=== PATIENT | female | born 1970 | race Caucasian/White ===

== ENCOUNTER 2019-11-25 09:42 | Outpatient (REF) | payer OTHER, SELFPAY ==
[2019-11-25 12:38] LABS: Alanine Aminotransferase 22 U/L (0-31); Albumin Level 4.2 g/dL (3.5-5.0); Alkaline Phosphatase 117 U/L (39-117); Anion Gap 11 (12-20); Aspartate Amino Transferase 19 U/L (5-31); Bilirubin Total 0.5 mg/dL (0.0-1.0); Blood Urea Nitrogen 12 mg/dL (9-16); Calcium 9.2 mg/dL (8.4-10.2); Carbon Dioxide 30 mmol/L (22-29); Chloride 104 mmol/L (96-108); Cholesterol 175 mg/dL; Estimated Glomerular Filt Rate > 60; Glucose Fasting 90 mg/dL (60-99); HDL Cholesterol 43 mg/dL; LDL Cholesterol Calculated 107 mg/dl; Potassium 4.3 mmol/l (3.3-5.1); Sodium 141 mmol/L (135-145); Total Protein 7.1 g/dL (6.5-8.0); Triglycerides 127 mg/dL
== END 2019-11-25 09:43 | disposition home or self-care (01) ==
LOC: CF 09:42
PROVIDERS: PCP Internal Medicine; Referring Provider Internal Medicine; Visit Provider Nurse Practitioner
DX: D12.6 Benign neoplasm of colon, unspecified (principal); K59.00 Constipation, unspecified; Z83.3 Family history of diabetes mellitus
CPT/HCPCS: 80053; 80061; 99213; Q3014

== ENCOUNTER 2020-01-07 16:00 | Outpatient (REF) | payer OTHER, SELFPAY ==
--- NOTE | 2020-01-07 16:05 | MM_ITS ---
EXAMINATION: MM SCREENING DIGITAL BREAST TOMOSYNTHESIS, BILATERAL CLINICAL INFORMATION: Screening. Asymptomatic. The lifetime risk of breast cancer based on the Tyrer-Cuzick Model is 10%. COMPARISON: Mammography: 08/08/2018, 07/05/2017 TECHNIQUE: Digital breast tomosynthesis is performed in both the craniocaudal and mediolateral oblique views along with computer-aided detection (CAD). Synthesized 2D images are generated from the tomosynthesis. FINDINGS: There are scattered areas of fibroglandular density (ACR BI-RADS breast composition Category b). There are no significant masses, abnormal calcifications, or other abnormalities. No developing density. No significant changes. MM/MM tomosynthesis screening BI IMPRESSION: No mammographic evidence of malignancy. ASSESSMENT: BI-RADS 1: Negative RECOMMENDATION: Routine annual mammography screening. This patient's information was entered into a reminder system with a target due date for their next mammogram.
== END 2020-01-07 16:01 | disposition home or self-care (01) ==
LOC: HO.MAMMO 16:00
PROVIDERS: PCP Internal Medicine; Visit Provider Internal Medicine
DX: Z12.31 Encounter for screening mammogram for malignant neoplasm of breast (principal)
CPT/HCPCS: 77063; 77067

== ENCOUNTER 2020-03-25 16:26 | Outpatient (REF) | payer OTHER, SELFPAY | END 2020-03-25 16:27 | disposition home or self-care (01) | LOC: HO.LAB 16:26 | PROVIDERS: Visit Provider Internal Medicine | DX: Z20.822 Contact with and (suspected) exposure to COVID-19 (principal) | CPT/HCPCS: 36415; C9803; U0003; U0005 ==

== ENCOUNTER 2020-04-28 14:21 | Outpatient (REF) | payer OTHER, SELFPAY ==
[2020-05-02 12:07] LABS: HPV mRNA E6/E7 rflx Not Detected (Not Detected)
== END 2020-04-28 14:22 | disposition home or self-care (01) ==
LOC: HO.LAB 14:21
PROVIDERS: PCP Internal Medicine; Visit Provider Obstetrics & Gynecology
DX: Z01.419 Encounter for gynecological examination (general) (routine) without abnormal findings (principal); Z11.51 Encounter for screening for human papillomavirus (HPV)
CPT/HCPCS: 36415; 87624; 88142

== ENCOUNTER 2020-08-04 08:07 | Outpatient (REF) | payer OTHER, SELFPAY | END 2020-08-04 08:08 | disposition home or self-care (01) | LOC: HO.LAB 08:07 | PROVIDERS: PCP Internal Medicine; Visit Provider Internal Medicine | DX: Z20.822 Contact with and (suspected) exposure to COVID-19 (principal) | CPT/HCPCS: C9803; U0003; U0005 ==

== ENCOUNTER 2020-09-12 13:55 | Emergency (ER) | payer OTHER, SELFPAY ==
[2020-09-12 14:38] VITALS: BP 118/77; PULSE 87; RESP 20; TEMP 36.1; O2SAT 99; BMI 29.2
[2020-09-12 15:05] LABS: Glucose Urine UA NEG (NEG); Leukocyte Esterase Urine TRACE (NEG); Nitrite Urine NEG (NEG); Specific Gravity - Urine <= 1.005 (1.005-1.025); UACC Culture Trigger YES; Urine Blood NEG (NEG); Urine Ketones NEG (NEG); Urine Protein NEG (NEG-TRACE)
[2020-09-12 15:08] LABS: Appearance Urine CLEAR; Color Urine YELLOW
[2020-09-12 15:18] LABS: Bacteria Urine TRACE /LPF; RBC Urine 0-2 /HPF (0); Squamous Epithelial Cell Urine TRACE /LPF; UACC CULT YES
[2020-09-12 16:07] LABS: MANUAL DIFF FLAG NO
[2020-09-12 16:08] LABS: Basophils Percent Auto 0.5 % (0-2); Eosinophils Absolute Auto 0.1 X10*3/uL (0.0-0.4); Eosinophils Percent Auto 1.1 % (0-4); Hematocrit 38.5 % (37-47); Hemoglobin 12.4 g/dl (12.0-16.0); Imm Gran Abs Auto 0.02 X10*3/uL (0.00-0.03); Imm Gran Pct Auto 0.2 % (0.0-0.4); Lymphocytes Absolute Auto 2.9 X10*3/uL (1.2-4.9); Mean Corpuscular HGB Conc 32.2 g/dl (31.0-35.0); Mean Corpuscular Hemoglobin 29.3 pg (27.0-33.0); Mean Platelet Volume 11.7 fL (9.4-12.3); Monocytes Absolute Auto 0.6 X10*3/uL (0.1-1.2); Monocytes Percent Auto 6.5 % (2-11); Neutrophils Absolute Auto 4.9 X10*3/uL (2.0-8.3); Neutrophils Percent Auto 57.7 % (45-73); Platelet Count 257 X10*3/uL (160-400); Red Blood Count 4.23 X10*6/uL (4.20-5.50); Red Cell Distribution Width 13.1 % (11.0-16.0); White Blood Count 8.4 X10*3/uL (4.8-10.8)
[2020-09-12 16:36] LABS: Anion Gap 12 (12-20); Blood Urea Nitrogen 12 mg/dL (9-16); Calcium 9.8 mg/dL (8.4-10.2); Carbon Dioxide 29 mmol/L (22-29); Chloride 106 mmol/L (96-108); Creatinine Clr Calc Pharmacy 75.7; Estimated Glomerular Filt Rate > 60; Glucose Random 97 mg/dL (60-115); Potassium 4.8 mmol/L (3.3-5.1); Sodium 142 mmol/L (135-145)
--- NOTE | 2020-09-12 17:21 | ED_ITS ---
HPI - Abdominal Pain General Chief Complaint: Abdominal Pain Stated Complaint: ABD PAIN Time Seen by Provider: 09/12/20 17:08 Source: patient Mode of arrival: ambulatory Limitations: no limitations History of Present Illness HPI narrative: 50-year-old female came in for evaluation of abdominal pain. Left-sided abdominal pain started about 4 weeks ago, seen and evaluated by her PCP prescribed omeprazole, patient describes the pain as constant but waxing and wean, pain is moderate 4/10, described as crampy pain, patient has a normal bowel movement sometimes get loose stool, but no blood in the stool, no nausea, no vomiting, no fever. No relieving factor, no aggravating factors. Patient had recent colonoscopy and her next colonoscopy in 5 years patient normally follow with gastroenterology office has an appointment next month. Related Data Previous Rx's Medication Instructions Recorded pantoprazole 40 mg tablet,delayed 40 mg PO DAILY 90 Days #90 tab 09/06/20 release Allergies Allergy/AdvReac Type Severity Reaction Status Date / Time No Known Allergies Allergy Verified 08/04/20 07:49 Review of Systems Review of Systems All other systems are reviewed and are negative Constitutional: Reports as per HPI and Reports no additional constitutional complaints Eyes: Reports as per HPI and Reports no additional eye complaints Reports system reviewed and no additional complaints, except as documented Cardiovascular: Reports as per HPI and Reports no additional cardiovascular complaints Respiratory: Reports as per HPI and Reports no additional respiratory complaints Gastrointestinal: Reports as per HPI and Reports no additional gastrointestinal complaints Genitourinary: Reports no additional female genitourinary complaints Musculoskeletal: Reports no additional musculoskeletal complaints Skin/Breast: Reports system reviewed and no additional complaints, except as docu Psychiatric: Reports no additional psychiatric complaints Endocrine: Reports no additional endocrine complaints Hematologic/Lymphatic: Reports no additional hematologic/lymphatic complaints Allergic/Immunologic: Reports no additional allergic/immunologic complaints Reports system reviewed and no additional complaints, except as documented and Reports Abnormal speech present Physical Exam Vital Signs: Vital Signs: Last Vital Signs Temp 96.9 F 09/12/20 14:38 Pulse 87 09/12/20 14:38 Resp 20 09/12/20 14:38 BP 118/77 09/12/20 14:38 Pulse Ox 99 09/12/20 14:38 Body Mass Index 29.2 Vital signs have been reviewed as appeared to be correct. Blood pressure normal. Heart rate normal. Respiration rate normal. Temperature normal. Oxygen saturation normal. Appearance: Alert. Oriented X3. No acute distress. Head: Normal external exam. Normocephalic. Atraumatic. No Hernandez signs noted. No raccoon eyes noted Eyes: PERRLA. EOMI. Conjunctiva and sclera normal. Eyelids normal. ENT: TM's Normal. Pharynx normal. Uvula midline. Moist mucous membranes. No trismus noted. No drooling noted. No muffled voice noted. Neck: Normal inspection. Neck supple. FROM. No adenopathy. Thyroid Normal. No meningeal signs. No neck mass noted. CVS: Normal heart rate and rhythm. Heart sound normal. No murmurs noted. Pulses normal throughout. Respiratory: No respiratory distress. Painless inspiration. Breath sounds normal. No wheezes/rales/rhonchi noted. Chest nontender. No accessory muscle usage noted or decreased air movement noted. Abdomen: Soft and nontender. Bowel sounds normal in all 4 quadrants. No distention noted. No organomegaly noted. No visible injury noted. Back: No CVA tenderness. Full range of motion noted. Skin: Skin warm and dry. Normal skin color. Normal skin turgor. No rashes/lesions/lacerations noted. Extremities: No lower extremity edema. Extremities exhibit normal range of motion. Extremities nontender. Neuro: Oriented X 3. No motor deficit. No sensory deficit. Reflexes normal. Course Course Course Narrative: Assessment and plan. 50-year-old female came in with left-sided abdominal pain for 3-4 weeks, patient had recent colonoscopy which was on significant except for tubular adenoma that has been followed by the administrative technician patient is scheduled to have her next colonoscopy in 5 years. Patient was evaluated by PCP for her chronic abdominal pain was prescribed omeprazole with no relief. As I discussed with the patient to modify her diet more frequent small quantity, continue with omeprazole, avoid fried full greasy food. And keep to her appointment with administrative technician. No acute emergency intervention is needed at this point. MDM - Abdominal Pain Lab Data Attestation: I reviewed the patient's lab results. Result diagrams: 09/12/20 15:59 09/12/20 15:59 Labs: Lab Results 09/12/20 09/12/20 09/12/20 Range/Units 14:57 15:59 15:59 WBC 8.4 (4.8-10.8) X10*3/uL RBC 4.23 (4.20-5.50) X10*6/uL Hgb 12.4 (12.0-16.0) g/dl Hct 38.5 (37-47) % MCV 91.0 (80-98) fL MCH 29.3 (27.0-33.0) pg MCHC 32.2 (31.0-35.0) g/dl RDW 13.1 (11.0-16.0) % Plt Count 257 (160-400) X10*3/uL MPV 11.7 (9.4-12.3) fL Immature Gran % (Auto) 0.2 (0.0-0.4) % Neut % (Auto) 57.7 (45-73) % Lymph % (Auto) 34.0 (20-40) % Wolfe % (Auto) 6.5 (2-11) % Eos % (Auto) 1.1 (0-4) % Baso % (Auto) 0.5 (0-2) % Lymph # (Auto) 2.9 (1.2-4.9) X10*3/uL Wolfe # (Auto) 0.6 (0.1-1.2) X10*3/uL Eos # (Auto) 0.1 (0.0-0.4) X10*3/uL Baso # (Auto) 0.0 (0.0-0.2) X10*3/uL Abs Immat Gran (auto) 0.02 (0.00-0.03) X10*3/uL Absolute Neuts (auto) 4.9 (2.0-8.3) X10*3/uL Absolute Nucleated RBC 0.000 (0.0-0.012) X10*3/uL Nucleated RBC % (auto) 0.0 (0.0-0.2) /100WBC Sodium 142 (135-145) mmol/L Potassium 4.8 (3.3-5.1) mmol/L Chloride 106 (96-108) mmol/L Carbon Dioxide 29 (22-29) mmol/L Anion Gap 12 (12-20) BUN 12 (9-16) mg/dL Creatinine 0.81 (0.5-1.4) mg/dL Estim Creat Clear Calc 75.7 Estimated GFR > 60 Random Glucose 97 (60-115) mg/dL Calcium 9.8 D (8.4-10.2) mg/dL Urine Color YELLOW Urine Appearance CLEAR Urine pH 6.0 (5.0-8.0) Ur Specific [place] <= 1.005 (1.005-1.025) Urine Protein NEG (NEG-TRACE) MG/DL Urine Glucose (UA) NEG (NEG) MG/DL Urine Ketones NEG (NEG) MG/DL Urine Blood NEG (NEG) Urine Nitrite NEG (NEG) Ur Leukocyte Esterase TRACE H (NEG) Urine RBC 0-2 (0) /HPF Urine WBC 1-4 (0-4) /HPF Ur Squamous Epith Cells TRACE /LPF Urine Bacteria TRACE /LPF Discharge Plan Discharge Clinical Impression: Abdominal pain Qualifiers: Abdominal location: unspecified location Qualified Code(s): R10.9 - Unspecified abdominal pain Patient Disposition: Home, Self-Care Instructions: Abdominal Pain (ED) Prescriptions: No Action pantoprazole 40 mg tablet,delayed release (DR/EC) 40 mg PO DAILY 90 Days Qty: 90 RF: 1 Referrals: Pio Kelley MD [Physician] - 2 days Amber Jensen MD [Primary Care Provider] - 2 days PMF Past Medical History Medical History 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 GERD (gastroesophageal reflux disease) Right sided sciatica Uterine leiomyoma Surgical History History of delivery Hx of colonoscopy Family History Family History Father COPD (chronic obstructive pulmonary disease) Mother NIDDY (non-insulin dependent diabetes mellitus in young) Paternal Grandmother Alzheimer's dementia Maternal Grandmother NIDDY (non-insulin dependent diabetes mellitus in young) Social History Social History Housing: Apartment Alcohol intake: never Patient Tobacco Use Status: Never used Tobacco e-Cigarette/Vaping Use: Never Used Second Hand Smoke Exposure: No Use of substances other than those prescribed or required for medical reasons: No Advance Directives: No Advance Directives Information Provided: No Advance Directives Date on File: 11/25/19 Patient : No service: No Current occupational status: employed Current occupational exposures/hazards: No
[2020-09-12 17:24] LABS: Alanine Aminotransferase 15 U/L (0-31); Albumin Level 4.4 g/dL (3.5-5.0); Alkaline Phosphatase 121 U/L (39-117); Aspartate Amino Transferase 17 U/L (5-31); Bilirubin Direct < 0.2 mg/dL (0.0-0.5); Lipase 40 U/L (8-78); Total Protein 7.5 g/dL (6.5-8.0)
[2020-09-12 17:32] LABS: Bilirubin Total < 0.2 mg/dL (0.0-1.0)
== END 2020-09-12 17:46 | disposition home or self-care (01) ==
PROVIDERS: Emergency Provider Emergency Medicine; PCP Internal Medicine
DX: R10.9 Unspecified abdominal pain (principal); K21.9 Gastro-esophageal reflux disease without esophagitis
CPT/HCPCS: 36415; 80048; 80076; 81001; 83690; 85025; 87086; 99283; 99284

== ENCOUNTER → 2020-10-29 10:23 | Outpatient (BNVA) | payer OTHER, SELFPAY | PROVIDERS: PCP Internal Medicine; Referring Provider Internal Medicine; Visit Provider Nurse Practitioner | DX: K59.00 Constipation, unspecified (principal); K21.9 Gastro-esophageal reflux disease without esophagitis; R19.7 Diarrhea, unspecified; R10.10 Upper abdominal pain, unspecified; Z83.1 Family history of other infectious and parasitic diseases | CPT/HCPCS: 99212 ==

== ENCOUNTER 2020-11-18 08:05 | Outpatient (REF) | payer OTHER, SELFPAY ==
[2020-11-18 10:00] LABS: HBS Num1 0.27 mIU/mL (0-7.99); HBc Num1 0.04 S/CO (0.00-0.79); Hepatitis B Core Antibody Nonreactive (Nonreactive); ~HepC Num1 0.41 S/CO (0.00-0.79); ~Hepatitis B Surface Antibody NONREACTIVE (Nonreactive); ~Hepatitis C Antibody Nonreactive (Nonreactive)
[2020-11-18 10:28] LABS: HBsAGNum1 0.19 S/CO (0.00-0.99); Hepatitis B Surface Antigen Negative (Negative)
[2020-11-19 08:08] LABS: Hepatitis A Antibody IgM 0.23 Index (0-0.79); ~Hepatitis A Antibody IgM Nonreactive (Nonreactive)
== END 2020-11-18 08:06 | disposition home or self-care (01) ==
LOC: HO.LAB 08:05
PROVIDERS: PCP Internal Medicine; Visit Provider Nurse Practitioner
DX: R19.7 Diarrhea, unspecified (principal); R10.10 Upper abdominal pain, unspecified; Z83.1 Family history of other infectious and parasitic diseases
CPT/HCPCS: 36415; 86140; 86704; 86706; 86709; 86803; 87045; 87046; 87077; 87338; 87340

== ENCOUNTER 2020-11-18 08:42 | Outpatient (REF) | payer OTHER, SELFPAY ==
--- NOTE | ~2020-11-18 | US_ITS ---
EXAMINATION: US ABDOMEN COMPLETE CLINICAL INFORMATION: Diarrhea, unspecified. COMPARISON: None TECHNIQUE: Real-time imaging of the abdominal viscera. FINDINGS: PANCREAS: Normal. ABDOMINAL AORTA: The proximal, mid, and distal segments are normal in caliber. INFERIOR VENA CAVA: Visualized portions are normal. LIVER: The liver is normal in size. The liver contour is normal. Liver echotexture is normal. No focal hepatic lesion. There is no intrahepatic biliary duct dilatation seen. GALLBLADDER: Normal. The gallbladder is physiologically distended without evidence of stones, sludge, polyps, wall thickening or pericholecystic fluid. COMMON BILE DUCT: Normal in caliber measuring 0.4 cm in diameter. RIGHT KIDNEY: There is a 9 x 8 x 8 mm simple cyst in the midpole. No imaging follow-up needed. No hydronephrosis or renal calculi. The kidney measures 9.5 cm in maximum dimension. LEFT KIDNEY: Normal. No hydronephrosis. No renal calculi or focal parenchymal lesions. The kidney measures 10.1 cm in maximum dimension. SPLEEN: Normal. The spleen measures 7.3 cm in maximum dimension. FREE FLUID: None. US/US abdomen complete IMPRESSION: Small right renal cyst. Otherwise unremarkable exam.
== END 2020-11-18 08:43 | disposition home or self-care (01) ==
LOC: HO.US 08:42
PROVIDERS: PCP Internal Medicine; Visit Provider Nurse Practitioner
DX: R19.7 Diarrhea, unspecified (principal)
CPT/HCPCS: 76700

== ENCOUNTER → 2020-11-30 09:50 | Outpatient (BNVA) | payer OTHER, SELFPAY | PROVIDERS: PCP Internal Medicine; Referring Provider Internal Medicine; Visit Provider Nurse Practitioner | DX: D12.6 Benign neoplasm of colon, unspecified (principal); R10.9 Unspecified abdominal pain | CPT/HCPCS: 99212 ==

== ENCOUNTER → 2020-12-23 16:33 | Outpatient (BNVA) | payer OTHER, SELFPAY | PROVIDERS: PCP Internal Medicine; Visit Provider Nurse Practitioner ==

== ENCOUNTER 2020-12-31 14:06 | Outpatient (REF) | payer OTHER, SELFPAY | END 2020-12-31 14:07 | disposition home or self-care (01) | LOC: HO.LAB 14:06 | PROVIDERS: PCP Internal Medicine; Visit Provider Nurse Practitioner | DX: R10.9 Unspecified abdominal pain (principal) | CPT/HCPCS: 36415; 86003 ==

== ENCOUNTER → 2021-01-20 16:11 | Outpatient (BNVA) | payer OTHER, SELFPAY | PROVIDERS: PCP Internal Medicine; Referring Provider Internal Medicine; Visit Provider Nurse Practitioner ==

== ENCOUNTER 2021-01-25 11:04 | Outpatient (REF) | payer OTHER, SELFPAY ==
--- NOTE | ~2021-01-25 | MM_ITS ---
EXAMINATION: MM SCREENING DIGITAL BREAST TOMOSYNTHESIS, BILATERAL CLINICAL INFORMATION: Screening. Asymptomatic. The lifetime risk of breast cancer based on the Tyrer-Cuzick Model is 11.3%. COMPARISON: Mammography: January 07, 2020 and studies dating back to July 02, 2013 TECHNIQUE: Digital breast tomosynthesis is performed in both the craniocaudal and mediolateral oblique views along with computer-aided detection (CAD). Synthesized 2D images are generated from the tomosynthesis. FINDINGS: The breasts are heterogeneously dense, which may obscure small masses (ACR BI-RADS breast composition Category c). There are no significant masses, abnormal calcifications, or other abnormalities. MM/MM tomosynthesis screening BI IMPRESSION: There are no significant changes from prior study. ASSESSMENT: BI-RADS 1: Negative RECOMMENDATION: Routine annual mammography screening. This patient's information was entered into a reminder system with a target due date for their next mammogram.
== END 2021-01-25 11:05 | disposition home or self-care (01) ==
LOC: HO.MAMMO 11:04
PROVIDERS: Visit Provider Internal Medicine
DX: Z12.31 Encounter for screening mammogram for malignant neoplasm of breast (principal)
CPT/HCPCS: 77063; 77067

== ENCOUNTER → 2021-05-02 11:19 | Outpatient (REF) | payer OTHER, SELFPAY ==
--- NOTE | 2021-05-02 11:26 | ECG_ITS ---
Test Reason : R07.89 CHEST PAIN Blood Pressure : / mmHG Vent. Rate : 068 BPM Atrial Rate : 068 BPM P-R Int : 158 ms QRS Dur : 076 ms QT Int : 380 ms P-R-T Axes : 053 017 010 degrees QTc Int : 404 ms Normal sinus rhythm Normal EKG When compared with ECG of 21-JUL-2018 20:52, No significant change was found Referred By: Karina Basilio Electronically Signed By:MARTHA DAVIS
== END ==
LOC: HO.CARD 11:19
PROVIDERS: PCP Internal Medicine; Visit Provider Nurse Practitioner Family
DX: R07.89 Other chest pain (principal)
CPT/HCPCS: 93005

== ENCOUNTER → 2021-05-04 13:34 | Outpatient (BNVA) | payer OTHER, SELFPAY | PROVIDERS: PCP Internal Medicine; Visit Provider Obstetrics & Gynecology | DX: Z13.89 Encounter for screening for other disorder (principal) ==

== ENCOUNTER → 2021-05-26 12:45 | Outpatient (BNVA) | payer OTHER, SELFPAY | PROVIDERS: PCP Internal Medicine; Referring Provider Internal Medicine; Visit Provider Nurse Practitioner | DX: K58.0 Irritable bowel syndrome with diarrhea (principal); R10.12 Left upper quadrant pain; K64.9 Unspecified hemorrhoids | CPT/HCPCS: 99212 ==

== ENCOUNTER 2021-07-14 11:26 | Emergency (ER) | payer OTHER, SELFPAY ==
--- NOTE | ~2021-07-14 | XR_ITS ---
EXAMINATION: XR CHEST CLINICAL INFORMATION: Chest single view COMPARISON: None TECHNIQUE: Frontal view of the chest was obtained. FINDINGS: No significant abnormality is noted involving the heart, lungs, mediastinum, bony thorax or soft tissues. XR/XR chest 1V IMPRESSION: Unremarkable examination.
--- NOTE | 2021-07-14 11:29 | ECG_ITS ---
Test Reason : chest pain Blood Pressure : / mmHG Vent. Rate : 071 BPM Atrial Rate : 071 BPM P-R Int : 152 ms QRS Dur : 076 ms QT Int : 362 ms P-R-T Axes : 050 003 004 degrees QTc Int : 393 ms Normal sinus rhythm Normal ECG When compared with ECG of 02-MAY-2021 11:35, No significant change was found Referred By: Generic ED Physician Electronically Signed By:Cruzito Valentino
[2021-07-14 12:48] VITALS: BP 125/76; PULSE 72; RESP 18; TEMP 36.3; O2SAT 100; BMI 29.6
[2021-07-14 13:13] LABS: MANUAL DIFF FLAG NO
[2021-07-14 13:18] LABS: Basophils Percent Auto 0.3 % (0-2); Eosinophils Absolute Auto 0.1 X10*3/uL (0.0-0.4); Eosinophils Percent Auto 0.8 % (0-4); Hematocrit 37.7 % (37.0-47.0); Imm Gran Abs Auto 0.01 X10*3/uL (0.00-0.03); Imm Gran Pct Auto 0.1 % (0.0-0.4); Lymphocytes Absolute Auto 2.6 X10*3/uL (1.2-4.9); Lymphocytes Percent Auto 36.5 % (20-40); Mean Corpuscular HGB Conc 31.8 g/dl (31.0-35.0); Mean Corpuscular Volume 91.1 fL (80.0-98.0); Mean Platelet Volume 11.7 fL (9.4-12.3); Monocytes Absolute Auto 0.4 X10*3/uL (0.1-1.2); Monocytes Percent Auto 6.1 % (2-11); Neutrophils Absolute Auto 4.1 x10*3/uL (2.0-8.3); Neutrophils Percent Auto 56.2 % (45-73); Platelet Count 235 X10*3/uL (160-400); Red Blood Count 4.14 X10*6/uL (4.20-5.50); Red Cell Distribution Width 13.1 % (11.0-16.0); White Blood Count 7.2 X10*3/uL (4.8-10.8)
[2021-07-14 13:30] LABS: Alanine Aminotransferase 23 U/L (0-31); Alkaline Phosphatase 112 U/L (39-117); Anion Gap 12 (12-20); Aspartate Amino Transferase 17 U/L (5-31); Bilirubin Total 0.3 mg/dL (0.0-1.0); Blood Urea Nitrogen 11 mg/dL (9-16); Calcium 9.7 mg/dL (8.4-10.2); Carbon Dioxide 29 mmol/L (22-29); Chloride 104 mmol/L (96-108); Creatinine Clr Calc Pharmacy 88.7; Estimated Glomerular Filt Rate > 60; Glucose Random 101 mg/dL (60-115); Potassium 4.5 mmol/L (3.3-5.1); Sodium 140 mmol/L (135-145); Total Protein 7.1 g/dL (6.5-8.0)
[2021-07-14 13:30] LABS: COVID-19 Test Negative (Negative); IDNOW Serial# 16C4AD1C; Influenza A Negative (Negative); Influenza B2 Negative (Negative)
[2021-07-14 13:35] LABS: Troponin-I High Sensitivity < 3.5 ng/L (<3.5-17.0)
--- NOTE | 2021-07-14 14:11 | ED_ITS ---
HPI - Chest Pain General Chief Complaint: Chest Pain Stated Complaint: chest pain, fast heart beat Time Seen by Provider: 07/14/21 14:04 Source: patient Mode of arrival: ambulatory Limitations: no limitations History of Present Illness HPI narrative: palpitation since X 10 Days ,no chest pain no syncope MD complaint: other (palpitations) Pertinent past history: other Onset (ago): unknown Onset: during rest Pain radiation: none Quality: other Relieving factors: other Exacerbating factors: other Risk Factors Coronary artery disease risk factors: none Related Data Previous Rx's Medication Instructions Recorded ibuprofen 600 mg tablet 600 mg PO Q8H PRN #20 tab 04/29/21 tizanidine 2 mg tablet 2 mg PO BEDTIME PRN #7 tab 04/29/21 Proctosol HC 2.5 % topical cream 1 appl LA BID PRN #28.35 g NS 05/26/21 perineal applicator (hydrocortisone) Allergies Allergy/AdvReac Type Severity Reaction Status Date / Time acetaminophen AdvReac Agitated Verified 07/14/21 12:48 [From Benadryl Sbhgffo-Gdlcy-Mfwxrsd] diphenhydramine AdvReac Agitated Verified 07/14/21 12:48 [From Benadryl Fnhssgi-Sbalz-Zgkoors] phenylephrine AdvReac Agitated Verified 07/14/21 12:48 [From Benadryl Kjhnapc-Xreru-Crdcxqe] pseudoephedrine AdvReac Agitated Verified 07/14/21 12:48 [From Benadryl Xknbpcj-Bmsyu-Lavdkfy] Review of Systems Review of Systems: Yes all other systems are reviewed and are negative ENT: Reports system reviewed and no additional complaints, except as documented Cardiovascular: Cardiovascular: Reports palpitations Gastrointestinal: Gastrointestinal: Reports no additional gastrointestinal complaints Musculoskeletal: Musculoskeletal: Reports no additional musculoskeletal complaints Endocrine: Endocrine: Reports palpitations PMFSH Past Medical History Medical History Constipation 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 GERD (gastroesophageal reflux disease) Right sided sciatica Uterine leiomyoma Surgical History History of delivery Hx of colonoscopy Family History Family History Father COPD (chronic obstructive pulmonary disease) Mother NIDDY (non-insulin dependent diabetes mellitus in young) Paternal Grandmother Alzheimer's dementia Maternal Grandmother NIDPHAM (non-insulin dependent diabetes mellitus in young) Social History Social History Housing: Apartment Alcohol intake: never Patient Tobacco Use Status: Never used Tobacco e-Cigarette/Vaping Use: Never Used Second Hand Smoke Exposure: No Advance Directives: No Advance Directives Date on File: 11/25/19 service: No Current occupational status: employed Current occupational exposures/hazards: No Physical Exam Vital Signs: Vital Signs: Last Vital Signs Temp 97.3 F 07/14/21 12:48 Pulse 72 07/14/21 12:48 Resp 18 07/14/21 12:48 BP 125/76 07/14/21 12:48 Pulse Ox 100 07/14/21 12:48 BMI result Body Mass Index 29.6 Const: General: cooperative, healthy appearing, comfortable and no acute distress Nutritional Appearance: average body habitus Orie ntation/consciousness: oriented to person HEENT: Head: Yes normal to inspection Ears: hearing grossly normal bilaterally Face and sinus: Yes normal facial exam Mouth: Normal oral and palatal mucosa present Throat: Yes posterior oropharynx normal Neck: Neck: Yes normal visual inspection, Yes full ROM and Yes no lymphadenopathy Thyroid: Thyroid normal Chest: Chest palpation & inspection: normal inspection of the chest Resp: Effort & Inspection: normal respiratory effort and able to speak in complete sentences Auscultation: clear to auscultation bilaterally Cardio: Jugular venous distension: no JVD Rate: regular rate Rhythm: regular rhythm GI: Inspection: Yes normal to inspection Palpation (GI): Soft to palpation Percussion: Yes normal to percussion Skin: General skin exam: no rashes or lesions noted Lesions: no lesions Rashes: no rashes Neuro: General: oriented to person MDM - Chest Pain MDM Narrative Medical decision making narrative: no risk factor for CAD,c/o palpitations no syncope no near syncopal episode,stable VSS,negative high sensitive troponin ,normal EKG,I do not think she need admission for monitoring,pt can be reasonably be w/u as outpatient she may need holter or event recorder/echo/ETT but this test can be done as outpatient ,pt does have a PCP she will call PCP for appointment OK to d/c.She is very comfortable with the plan of care. Lab Data Result diagrams: 07/14/21 13:03 07/14/21 13:04 Labs: Lab Results 07/14/21 07/14/21 07/14/21 Range/Units 13:02 13:02 13:03 WBC 7.2 (4.8-10.8) X10*3/uL RBC 4.14 L (4.20-5.50) X10*6/uL Hgb 12.0 (12.0-16.0) g/dl Hct 37.7 (37.0-47.0) % MCV 91.1 (80.0-98.0) fL MCH 29.0 (27.0-33.0) pg MCHC 31.8 (31.0-35.0) g/dl RDW 13.1 (11.0-16.0) % Plt Count 235 (160-400) X10*3/uL MPV 11.7 (9.4-12.3) fL Immature Gran % (Auto) 0.1 (0.0-0.4) % Neut % (Auto) 56.2 (45-73) % Lymph % (Auto) 36.5 (20-40) % [place] % (Auto) 6.1 (2-11) % Eos % (Auto) 0.8 (0-4) % Baso % (Auto) 0.3 (0-2) % Lymph # (Auto) 2.6 (1.2-4.9) X10*3/uL [place] # (Auto) 0.4 (0.1-1.2) X10*3/uL Eos # (Auto) 0.1 (0.0-0.4) X10*3/uL Baso # (Auto) 0.0 (0.0-0.2) X10*3/uL Abs Immat Gran (auto) 0.01 (0.00-0.03) X10*3/uL Absolute Neuts (auto) 4.1 (2.0-8.3) x10*3/uL Absolute Nucleated RBC 0.000 (0.0-0.012) X10*3/uL Nucleated RBC % (auto) 0.0 (0.0-0.2) /100WBC Sodium (135-145) mmol/L Potassium (3.3-5.1) mmol/L Chloride (96-108) mmol/L Carbon Dioxide (22-29) mmol/L Anion Gap (12-20) BUN (9-16) mg/dL Creatinine (0.5-1.4) mg/dL Estim Creat Clear Calc Estimated GFR Random Glucose (60-115) mg/dL Calcium (8.4-10.2) mg/dL Total Bilirubin (0.0-1.0) mg/dL AST (5-31) U/L ALT (0-31) U/L Alkaline Phosphatase (39-117) U/L Troponin I High Sens (<3.5-17.0) ng/L Total Protein (6.5-8.0) g/dL Albumin (3.5-5.0) g/dL COVID-19 ([facility]) Negative (Negative) COVID-19 Clin Com See Note Influenza Type A (DANA) Negative (Negative) Influenza Type B (DANA) Negative (Negative) Influenza A & B Note See Note 07/14/21 07/14/21 Range/Units 13:04 13:04 WBC (4.8-10.8) X10*3/uL RBC (4.20-5.50) X10*6/uL Hgb (12.0-16.0) g/dl Hct (37.0-47.0) % MCV (80.0-98.0) fL MCH (27.0-33.0) pg MCHC (31.0-35.0) g/dl RDW (11.0-16.0) % Plt Count (160-400) X10*3/uL MPV (9.4-12.3) fL Immature Gran % (Auto) (0.0-0.4) % Neut % (Auto) (45-73) % Lymph % (Auto) (20-40) % [place] % (Auto) (2-11) % Eos % (Auto) (0-4) % Baso % (Auto) (0-2) % Lymph # (Auto) (1.2-4.9) X10*3/uL [place] # (Auto) (0.1-1.2) X10*3/uL Eos # (Auto) (0.0-0.4) X10*3/uL Baso # (Auto) (0.0-0.2) X10*3/uL Abs Immat Gran (auto) (0.00-0.03) X10*3/uL Absolute Neuts (auto) (2.0-8.3) x10*3/uL Absolute Nucleated RBC (0.0-0.012) X10*3/uL Nucleated RBC % (auto) (0.0-0.2) /100WBC Sodium 140 (135-145) mmol/L Potassium 4.5 (3.3-5.1) mmol/L Chloride 104 (96-108) mmol/L Carbon Dioxide 29 (22-29) mmol/L Anion Gap 12 (12-20) BUN 11 (9-16) mg/dL Creatinine 0.78 (0.5-1.4) mg/dL Estim Creat Clear Calc 88.7 Estimated GFR > 60 Random Glucose 101 (60-115) mg/dL Calcium 9.7 (8.4-10.2) mg/dL Total Bilirubin 0.3 (0.0-1.0) mg/dL AST 17 (5-31) U/L ALT 23 (0-31) U/L Alkaline Phosphatase 112 (39-117) U/L Troponin I High Sens < 3.5 (<3.5-17.0) ng/L Total Protein 7.1 (6.5-8.0) g/dL Albumin 4.0 (3.5-5.0) g/dL COVID-19 ([facility]ANE) (Negative) COVID-19 Clin Com Influenza Type A (DANA) (Negative) Influenza Type B (DANA) (Negative) Influenza A & B Note Imaging Data Chest x-ray: Radiologist's impression: CLINICAL INFORMATION: Chest single view COMPARISON: None TECHNIQUE: Frontal view of the chest was obtained. FINDINGS: No significant abnormality is noted involving the heart, lungs, mediastinum, bony thorax or soft tissues. XR/XR chest 1V IMPRESSION: Unremarkable examination. ? Dictated By: Dev Echavarria MD Signed By: <Electronically signed by Dev Echavarria MD in OV> 07/14/21 1330 DD/ 1311 TD/TT:? Accounts Payable Payroll Coordinator: ECG Data ECG #1: Pacemaker model: NSR 71 no ischemia Discharge Plan Discharge Clinical Impression: Heart palpitations Patient Disposition: Home, Self-Care Instructions: Heart Palpitations (DC) Additional Instructions: followup with pcp return if worse Prescriptions: No Action ibuprofen 600 mg tablet 600 mg PO Q8H PRN (Reason: pain) Qty: 20 0RF tizanidine 2 mg tablet 2 mg PO BEDTIME PRN (Reason: muscle spasticity) Qty: 7 0RF hydrocortisone [Proctosol HC] 2.5 % cream with perineal applicator 1 appl LA BID PRN (Reason: hemorrhoids) Qty: 28.35 3RF Interventions: ED Discharge Assessment Last Done: 07/14/21 14:23
== END 2021-07-14 14:25 | disposition home or self-care (01) ==
LOC: HO.ED 14:26
PROVIDERS: Emergency Provider Emergency Medicine; PCP Internal Medicine
DX: R00.2 Palpitations (principal); Z20.822 Contact with and (suspected) exposure to COVID-19
CPT/HCPCS: 36415; 71045; 80053; 84484; 85025; 87502; 87635; 93005; 99282; 99283; 99284

== ENCOUNTER → 2021-09-06 12:37 | Outpatient (BNVA) | payer OTHER, SELFPAY | PROVIDERS: PCP Internal Medicine; Visit Provider Nurse Practitioner | DX: K59.00 Constipation, unspecified (principal); K64.9 Unspecified hemorrhoids; R10.9 Unspecified abdominal pain | CPT/HCPCS: 99212 ==

== ENCOUNTER 2022-01-03 07:55 | Outpatient (REF) | payer OTHER, SELFPAY ==
--- NOTE | ~2022-01-03 | FL_ITS ---
EXAMINATION: XR GI SERIES CLINICAL INFORMATION: Epigastric pain COMPARISON: None TECHNIQUE: Upper GI was performed using thin and thick barium and effervescent granules. FINDINGS: There is mild gastroesophageal reflux. No esophageal hernia. The stomach and duodenum are normal-appearing. No fold thickening, ulcer or stricture is seen. FLUOROSCOPY TIME: 0.5 minutes DOSE AREA PRODUCT: 4 mcmanus per centimeter squared. 17 saved fluoroscopic images. FL/FL upper GI series IMPRESSION: Mild gastroesophageal reflux otherwise unremarkable exam.
[2022-01-03 08:46] LABS: Alanine Aminotransferase 21 U/L (0-31); Albumin Level 4.2 g/dL (3.5-5.0); Alkaline Phosphatase 117 U/L (39-117); Anion Gap 13 (12-20); Aspartate Amino Transferase 17 U/L (5-31); Bilirubin Total 0.5 mg/dL (0.0-1.0); Blood Urea Nitrogen 14 mg/dL (9-16); Calcium 9.4 mg/dL (8.4-10.2); Carbon Dioxide 28 mmol/L (22-29); Chloride 105 mmol/L (96-108); Cholesterol 188 mg/dL; Estimated Glomerular Filt Rate > 60; Glucose Fasting 101 mg/dL (60-99); HDL Cholesterol 40 mg/dL; LDL Cholesterol Calculated 128 mg/dl; Potassium 4.6 mmol/L (3.3-5.1); Sodium 141 mmol/L (135-145); Total Protein 7.1 g/dL (6.5-8.0); Triglycerides 100 mg/dL
== END 2022-01-03 07:56 | disposition home or self-care (01) ==
LOC: HO.XRAY 07:55
PROVIDERS: PCP Internal Medicine; Visit Provider Internal Medicine
DX: Z00.00 Encounter for general adult medical examination without abnormal findings (principal); R10.13 Epigastric pain
CPT/HCPCS: 36415; 74240; 80053; 80061

== ENCOUNTER 2022-01-30 07:40 | Outpatient (REF) | payer OTHER, SELFPAY ==
--- NOTE | ~2022-01-30 | MM_ITS ---
EXAMINATION: MM SCREENING DIGITAL BREAST TOMOSYNTHESIS, BILATERAL CLINICAL INFORMATION: Screening. Asymptomatic. The lifetime risk of breast cancer based on the Tyrer-Cuzick Model is 10%. COMPARISON: Mammography: 01/25/2021, 01/07/2020, 08/08/2018 TECHNIQUE: Digital breast tomosynthesis is performed in both the craniocaudal and mediolateral oblique views along with computer-aided detection (CAD). Synthesized 2D images are generated from the tomosynthesis. FINDINGS: There are scattered areas of fibroglandular density (ACR BI-RADS breast composition Category b). There are no significant masses, abnormal calcifications, or other abnormalities. No architectural abnormality or abnormal calcifications. Small circumscribed nodule central inner left breast is stable from prior exam. The skin contours are smooth. MM/MM tomosynthesis screening BI IMPRESSION: No mammographic evidence of malignancy. ASSESSMENT: BI-RADS 2: Benign RECOMMENDATION: Routine annual mammography screening. This patient's information was entered into a reminder system with a target due date for their next mammogram.
== END 2022-01-30 07:41 | disposition home or self-care (01) ==
LOC: HO.MAMMO 07:40
PROVIDERS: PCP Internal Medicine; Visit Provider Internal Medicine
DX: Z12.31 Encounter for screening mammogram for malignant neoplasm of breast (principal)
CPT/HCPCS: 77063; 77067

== ENCOUNTER → 2022-06-27 08:15 | Outpatient (BNVA) | payer OTHER, SELFPAY | PROVIDERS: PCP Internal Medicine; Visit Provider Obstetrics & Gynecology ==

== ENCOUNTER 2022-12-25 08:18 | Outpatient (AMB) | payer OTHER, SELFPAY ==
[2022-12-25 08:25] VITALS: BP 110/80; PULSE 83; O2SAT 98; BMI 29.5
--- NOTE | 2022-12-25 08:25 | A.OFFPC_ITS ---
Vital Signs 12/25/22 08:25 Height 5 ft 2 in Weight 161 lb 2 oz BMI 29.5 BP 110/80 Blood Pressure Location Lt brachial Position Sitting Pulse 83 Pulse Source Pulse Oximeter Pulse Oximetry (%) 98 Oxygen Delivery Method Room Air Intake Visit Reasons: Annual Exam+NEEDS PHQ9/THRIVE Instrumentation Instructor Required: No Accompanied by: Self / Same As Patient Allergies acetaminophen [From Benadryl Mcdyrtb-Vhwox-Gqctbct] Adverse Reaction (Verified 12/25/22 08:56) Agitated diphenhydramine [From Benadryl Rvfcpfe-Aylun-Esqwaex] Adverse Reaction (Verified 12/25/22 08:56) Agitated phenylephrine [From Benadryl Dapzyzr-Jqrpe-Muemhnr] Adverse Reaction (Verified 12/25/22 08:56) Agitated pseudoephedrine [From Benadryl Uevacmt-Zoyjy-Hmolzzf] Adverse Reaction (Verified 12/25/22 08:56) Agitated Medication List - Last Reconciled 12/25/22 by Amber Fountain MD No Known Home Meds Tobacco use date assessed: 12/25/22 Dental Screening Dental Screen Date: 12/25/22 Did you have a dental visit in the last 12 months?: Yes Did you have a dental problem in the last 6 months where you did not have access to dental care?: No Was dental information given to patient?: Patient has dentist HPI HPI Comments History of Present Illness Details This is a 52-year-old female that comes for her physical exam. Last mammogram was December 2021 was normal. Last Pap smear was 2020 was normal with HPV negative. Last colonoscopy was 2019 showing 1 tubular adenoma and next colonoscopy should be 2024. Complains of rectal pain aggravated by bowel movement that started about a year ago. Would like to see general surgeon for rectocele. [facility] Medical History Diarrhea GERD (gastroesophageal reflux disease) Right sided sciatica Uterine leiomyoma Constipation 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 Surgical History Hx of colonoscopy History of delivery Family History Father COPD (chronic obstructive pulmonary disease) Mother NIDDY (non-insulin dependent diabetes mellitus in young) Paternal Grandmother Alzheimer's dementia Maternal Grandmother NIDDY (non-insulin dependent diabetes mellitus in young) Social History (Updated 12/25/22 @ 09:02 by Amber Fountain MD) Housing: Apartment Alcohol intake: current Alcohol intake frequency: holidays/special occasions o nly Alcohol type: beer Patient Tobacco Use Status: Never used Tobacco e-Cigarette/Vaping Use: Never Used Second Hand Smoke Exposure: No Advance Directives Date on File: 11/25/19 service: No Current occupational status: employed Current occupational exposures/hazards: No Cognitive needs: No Hearing needs: No Vision needs: No Female Reproductive History Menstrual Age of Menarche: 10 Questionnaire PHQ-9 Over the last 2 weeks, how often have you been bothered by any of the following problems? 1. Little interest or pleasure in doing things: not at all 2. Feeling down, depressed, or hopeless: not at all 3. Trouble falling or staying asleep, or sleeping too much: not at all 4. Feeling tired or having little energy: not at all 5. Poor appetite or overeating: not at all 6. Feeling bad about yourself - or that you are a failure or have let yourself or your family down: not at all 7. Trouble concentrating on things, such as reading the newspaper or watching television: not at all 8. Moving or speaking so slowly that other people could have noticed. Or the op posite - being so fidgety or restless that you have been moving around a lot more than usual: not at all 9. Thoughts that you would be better off or of hurting yourself in some way: not at all Total score: 0 Depression Screening Interpretation: Negative Depression Screening Done: Yes 72616 - PHQ-9 Billing: Yes Source: Developed by Drs. Colton Hawk, Kristal Dunn, Ismael Corrales and colleagues, with an educational tavon from [employer]. Thrive Questionnaire Date Thrive assessed: 12/25/22 I am a: Patient What is your living situation today?: I have a steady place to live Within the past 12 months, did the food you bought not last and you didn't have the money to get more?: Never true Within the past 12 months, did you worry whether your food would run out before you got money to buy more?: Never true Do you have trouble paying for medicines?: No Do you have trouble getting transportation to medical appointments?: No Do you have trouble paying your heating and electricity bill?: No Do you have trouble taking care of your child, family member or friend?: No Do you have trouble with day-to-day activities such as bathing, preparing meals, shopping, managing finances, etc.?: No Are you currently unemployed and looking for a job?: No Are you interested in more education?: No Please select the resources that you would like help with: None Currently or been in a relationship where the following occur: no concerns reported AUDIT C Alcohol Use Questionnaire (AUDIT-C) 1. How often do you have a drink containing alcohol?: Monthly or less 2. How many drinks containing alcohol do you have on a typical day when you are drinking?: 1 or 2 3. How often do you have six or more drinks on one occasion?: Never Total Score: 1 Score Reviewed/Action Taken: No SHANTEL-7 AMB Questionnaire SHANTEL-7 Date SHANTEL - 7 assessed: 12/25/22 Feeling nervous, anxious, or on edge: 0 = Not at all Not being able to stop or control worryin = Not at all Worrying too much about different things: 0 = Not at all Trouble relaxin = Not at all Being so restless that it is hard to sit still: 0 = Not at all Becoming easily annoyed or irritable: 0 = Not at all Feeling afraid as if something awful might happen: 0 = Not at all Total SHANTEL-7 score (0-4 normal; 5-9 mild; 10-14 moderate; 15-21 severe): 0 Source: Developed by Drs. Colton Hawk, Kristal Dunn, Ismael Corrales and colleagues, with an educational tavon from [employer]. SHANTEL-7 Assessment Billing SHANTEL-7 Assessment Tool: SHANTEL-7 Assessment 64413 Review of Systems Const All systems reviewed & are unremarkable except as noted in HPI and below Eyes Reports no additional complaints, Denies change in vision and Denies other visual disturbances Card Denies chest pain at rest, Denies chest pain with activity, Denies edema, Denies irregular heart rhythm, Denies claudication, Denies dyspnea, Denies dyspnea on exertion, Denies orthopnea, Denies paroxysmal nocturnal dyspnea and Denies slow heart rate Resp Denies cough, Denies dyspnea and Denies dyspnea on exertion GI Denies abdominal pain, Denies change in bowel habits, Denies excessive flatus, Denies nausea and Denies vomiting Denies urinary incontinence, Denies urinary hesitancy and Denies urinary urgency Musc Denies abnormal gait, Denies atrophy, Denies deformity and Denies limited range of motion Skin/Breast Denies bleeding lesions, Denies changing lesions and Denies rash Neuro Denies abnormal gait and Denies lack of coordination Physical exam (Primary Care) Vital Signs: Last Vital Signs Pulse 83 12/25/22 08:25 BP 110/80 12/25/22 08:25 Pulse Ox 98 12/25/22 08:25 Oxygen Delivery Method Room Air 12/25/22 08:25 BMI result Body Mass Index 29.5 Tobacco/Smoking Status: Tobacco use Status Tobacco use date assessed 12/25/22 12/25/22 08:31 Patient Tobacco Use Status Never used Tobacco 12/25/22 09:02 e-Cigarette/Vaping Use Never Used 12/25/22 09:02 PHQ-9: PHQ-9 Score PHQ-9: Total score 0 12/25/22 09:14 Depression Screening Interpretation: Negative Thrive Assessment: Date of Thrive Assessment Date Thrive assessed 12/25/22 12/25/22 08:31 Currently or been in a relationship where the following occur: no concerns reported Const Orientation/consciousness: patient oriented x3 HENMT Head: Yes normal to inspection, Yes normocephalic and Yes atraumatic Ears: external ears normal Eyes General: appearance normal, both eyes and all related structures Eyelids: Yes eyelids normal Conjunctivae: conjunctivae normal Neck Neck: Yes normal visual inspection and Yes supple Resp Effort & Inspection: normal respiratory effort Auscultation: clear to auscultation bilaterally Cardio Jugular venous distension: no JVD Rate: regular rate Rhythm: regular rhythm Heart sounds: S1 normal heart sound present and S2 normal heart sound present GI Inspection: Yes normal to inspection Palpation (GI): Soft to palpation and nontender Auscultation: normal bowel sounds Skin General skin exam: no rashes or lesions noted Neuro General: patient oriented x3 and no focal motor deficits Extrem General: Yes full ROM Psych Appearance: grossly normal Office Procedures Flu Questionnaire Does the patient have a severe egg allergy?: No Does the patient have severe life threatening allergies?: No Does the patient have a fever or illness today?: No Has the patient ever had Guillain-[place] Syndrome?: No Has the patient ever had any past reaction to a flu shot?: No Immunizations flu vacc [id number] 6mos up(PF) 60 mcg(15 mcgx4)/0.5 mL IM syringe Performing Provider: Amber Fountain MD Performing Location: [facility] Administered by: MARISOL Palma on 12/25/22 09:14 Dose Route Admin Location Dispensed Lot Number Expiration Date NDC [employer]ra[employer] Supervisor 0.5 mL IM Left Deltoid 0.5 mL [id number] 08/19/23 75485-051-09 [employer] VIS Given Date VIS Provided VIS Publication Date 12/25/22 Single Vaccine 20 Eligibility Eligibility Date Funding Source Not [facility] Eligible 12/25/22 Private Assessment and Plan Assessment & Plan (1) Physical exam: Code(s): Z00.00 - Encounter for general adult medical examination without abnormal findings Plan: Repeat in a year Orders: Orders Comprehensive [place]. Panel Fast Today Z00.00 - Encounter for general adult medical examination without abnormal findings Influenza [id number] Immunization Today Z23 - Encounter for immunization Lipid Panel Today Z00.00 - Encounter for general adult medical examination without abnormal findings Referrals General Surgery Referral N81.6 - Rectocele Coding Level of Care Code Est Pt Prev Care 40-64y(20108) Diagnoses Physical exam Z00.00 Additional Codes SHANTEL-7 Assessment Billing - SHANTEL-7 Assessment Tool: SHANTEL-7 Assessment 47509 ([id number]) Time Spent (min) 32
== END 2022-12-25 09:15 | disposition home or self-care (01) ==
LOC: HO.HMGH 08:19
PROVIDERS: PCP Internal Medicine; Visit Provider Internal Medicine
DX: Z00.00 Encounter for general adult medical examination without abnormal findings (principal); Z23 Encounter for immunization; Z86.010 Personal history of colon polyps
CPT/HCPCS: 90471; 90686; 99396

== ENCOUNTER → 2023-01-02 12:48 | Outpatient (REF) | payer OTHER, SELFPAY ==
--- NOTE | 2023-01-02 12:52 | HM_ITS ---
* Total monitoring time 2 days. * Underlying rhythm is sinus. Average ventricular rate 88/Min. Range 58 to 133/Min. * Rare supraventricular ventricular ectopy. Low burden. * No sustained arrhythmias. * No significant bradycardia or heart blocks. * Patient symptoms including rapid/fast heartbeat associated primarily with sinus rhythm and on 1 occasion with mild sinus tachycardia. MTDD
== END ==
LOC: HO.CARD 12:48
PROVIDERS: PCP Internal Medicine; Visit Provider Internal Medicine
DX: R00.0 Tachycardia, unspecified (principal)
CPT/HCPCS: 93225

== ENCOUNTER → 2023-01-02 12:52 | Outpatient (BNV) | payer OTHER, SELFPAY | PROVIDERS: PCP Internal Medicine; Visit Provider Internal Medicine | DX: I47.10 Supraventricular tachycardia, unspecified (principal) | CPT/HCPCS: 93227 ==

== ENCOUNTER 2023-02-14 11:16 | Outpatient (REF) | payer OTHER, SELFPAY ==
[2023-02-14 12:25] LABS: Alanine Aminotransferase 19 U/L (0-31); Albumin Level 4.1 g/dL (3.5-5.0); Alkaline Phosphatase 124 U/L (39-117); Anion Gap 10 (12-20); Aspartate Amino Transferase 21 U/L (5-31); Bilirubin Total 0.3 mg/dL (0.0-1.0); Blood Urea Nitrogen 16 mg/dL (9-16); Calcium 9.6 mg/dL (8.4-10.2); Carbon Dioxide 28 mmol/L (22-29); Chloride 106 mmol/L (96-108); Cholesterol 207 mg/dL (<200); Estimated Glomerular Filt Rate > 60; Glucose Fasting 98 mg/dL (60-99); HDL Cholesterol 51 mg/dL (>40); LDL Cholesterol Calculated 132 mg/dL (<100); Potassium 4.4 mmol/L (3.3-5.1); Sodium 140 mmol/L (135-145); Total Protein 7.5 g/dL (6.5-8.0); Triglycerides 123 mg/dL (<150)
== END 2023-02-14 11:17 | disposition home or self-care (01) ==
LOC: HO.LAB 11:16
PROVIDERS: PCP Internal Medicine; Visit Provider Internal Medicine
DX: Z00.00 Encounter for general adult medical examination without abnormal findings (principal)
CPT/HCPCS: 36415; 80053; 80061

== ENCOUNTER 2023-02-28 10:55 | Outpatient (REF) | payer OTHER, SELFPAY | END 2023-02-28 10:56 | disposition home or self-care (01) | LOC: HO.MAMMO 10:55 | PROVIDERS: PCP Internal Medicine; Visit Provider Internal Medicine | DX: Z12.31 Encounter for screening mammogram for malignant neoplasm of breast (principal) | CPT/HCPCS: 77063; 77067 ==

== ENCOUNTER → 2023-02-28 11:15 | Outpatient (BNV) | payer OTHER, SELFPAY | PROVIDERS: PCP Internal Medicine; Visit Provider Radiology Diagnostic Radiology | DX: Z12.31 Encounter for screening mammogram for malignant neoplasm of breast (principal) | CPT/HCPCS: 77063; 77067 ==

== ENCOUNTER 2023-06-19 15:22 | Outpatient (AMB) | payer OTHER, SELFPAY ==
--- NOTE | 2023-06-19 15:27 | MHC.OFFVIS ---
Vital Signs 06/19/23 15:48 Height 5 ft 2 in Weight 157 lb 13.616 oz BMI 28.9 BP 111/55 L Blood Pressure Location Rt brachial Position Sitting Pulse 82 Intake Visit Reasons: Colonoscopy Screening Intake Note: Patient returns in follow up colonoscopy screening. CC: Patient c/o a lot of rectal discomfort especially after having a BM. Adult Protective Caseworker Required: Yes Accompanied by: Self / Same As Patient Allergies acetaminophen [From Benadryl Wsbiuev-Nhgkg-Wqtimsv] Adverse Reaction (Verified 06/19/23 15:56) Agitated diphenhydramine [From Benadryl Crcgqvf-Tiful-Zrcbeux] Adverse Reaction (Verified 06/19/23 15:56) Agitated phenylephrine [From Benadryl Hflhnqq-Zvjcf-Wrljlxz] Adverse Reaction (Verified 06/19/23 15:56) Agitated pseudoephedrine [From Benadryl Vpuduka-Ctczx-Xdluqdg] Adverse Reaction (Verified 06/19/23 15:56) Agitated HPI HPI Colonoscopy Screening: Details: Assessment & Plan (1) Constipation: ?Code(s): K59.00 - Constipation, unspecified ?Plan: She still has occasional LUQ cramping when she is moving her bowels. She used the proctosol cream,? but it was not helpful for the rectal pain - I think it may be spasm. We again discussed peppermint tea for this; which she has not yet tried. She was too sleepy with bentyl. She is now mildly constipated. I will give her a trial of colace to see if we can get her bowels moving w/o restarting her diarrhea. ROV 3 mos. (2) Hemorrhoids: ?Code(s): K64.9 - Unspecified hemorrhoids (3) Abdominal pain: ?Comment: Generally left-sided ?Code(s): R10.9 - Unspecified abdominal pain ? ? ? Medications: New docusate sodium (Colace) 100 mg? PO .DAILY WITH FOOD 30 days 30 caps 6RF K59.00 - Constipation, unspecified [facility]: Needs labs refreshed TODAY'S VISIT This patient has been lost to follow-up since 08/2021 and it appears she is now due for a screening colonoscopy. She had a defecogram ordered by Dr. Simpson that shows a rectocele with incomplete emptying. I explain that the treatment for this problem is surgery, but she says this MD retired and never went over the results with her. In the past she was only mildly constipated and this resolved with colace. Now she is having BM's with pain inside of the rectum she describes as burning. The results of the defecogram is in the chart. I tell her that sometimes this can be managed with constipation medications. She says that the colace really never worked for her, which is common. She has only mild relief with OTC prep H wipes and creams. She moves her bowels daily, but the BM's are hard and she has incomplete evacuation. She has failed senna, bisacodyl, colace, Miralax and fiber. She also has pain in the outer rectum and feels like it is a hemorrhoid. I am referring her to general surgery. No prior anesthesia or sedation problems. She denies any cardiac or respiratory problem. No ID problems. She had 1 TA on her last scope in 2019. [facility] Medical History (Updated 06/19/23 @ 15:30 by NITISH Alvarenga) Well woman exam Physical exam Diarrhea GERD (gastroesophageal reflux disease) Right sided sciatica Uterine leiomyoma Constipation 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 Surgical History Hx of colonoscopy History of delivery Family History Father COPD (chronic obstructive pulmonary disease) Mother NIDDY (non-insulin dependent diabetes mellitus in young) Paternal Grandmother Alzheimer's dementia Maternal Grandmother NIDDY (non-insulin dependent diabetes mellitus in young) Social History (Updated 12/25/22 @ 09:02 by Amber Fountain MD) Housing: Apartment Alcohol intake: current Alcohol intake frequency: holidays/special occasions only Alcohol type: beer Patient Tobacco Use Status: Never used Tobacco e-Cigarette/Vaping Use: Never Used Second Hand Smoke Exposure: No Advance Directives Date on File: 11/25/19 service: No Current occupational status: employed Current occupational exposures/hazards: No Cognitive needs: No Hearing needs: No Vision needs: No Female Reproductive History Menstrual Age of Menarche: 10 Review of Systems Const Denies fatigue, Denies fever(s), Denies night sweats, Denies poor appetite and Denies weight loss ENT Reports Normal hearing present, Denies dental pain, Denies dysphagia, Denies hearing loss, Denies mouth pain, Denies odynophagia, Denies throat swelling, Denies tongue swelling and Reports other (Dentition adequate) Card Reports no additional complaints Resp Reports no additional complaints GI Details: Denies abdominal pain, Denies melena, Denies bloating, Denies hematochezia, Reports constipation, Denies GI cramping, Denies dysphagia, Denies excessive flatus, Denies early satiety, Denies heartburn, Denies diarrhea, Denies nausea, Denies odynophagia, Denies vomiting, Denies hematemesis and Reports other (Rectal pain) Skin/Breast Denies pruritus, Denies lesions, Denies rash and Denies jaundice Neuro Reports Normal hearing present and Denies Abnormal speech present Endo Denies fatigue Aller/Immun Denies throat swelling and Denies tongue swelling Physical Exam Vital Signs: BMI result Body Mass Index 28.9 Const General: cooperative, no acute distress, well developed and well groomed Nutritional Appearance: average body habitus and well nourished Orientation/consciousness: oriented to person, oriented to place and oriented to time Limitations: No language barrier HEENT Head: Yes normocephalic and Yes atraumatic Eyes General: appearance normal, both eyes and all related structures Pupils: Equal, round and reactive pupils present Neck Neck: Yes normal visual inspection and Yes no lymphadenopathy Thyroid: Thyroid normal Resp Effort & Inspection: normal respiratory effort and able to speak in complete sentences Auscultation: clear to auscultation bilaterally Cardio Rate: regular rate Rhythm: regular rhythm Heart sounds: Normal, physiologic split S2 sound present Peripheral pulses: radial pulses present and posterior tibial pulses present GI Inspection: No distended and No Abdominal panniculus present Palpation (GI): Soft to palpation, nontender, no guarding, not rigid and No hepatosplenomegaly present Percussion: Yes normal to percussion Auscultation: normal bowel sounds Rectal Exam - Female: visual inspection normal, No External hemorrhoid(s) present, No Lesions present (GI) and No Anal fissure(s) present Skin General skin exam: no rashes or lesions noted, turgor normal, skin not dry, no jaundice, No spider nevi and no striae Rashes: no rashes Nails: normal Neuro General: oriented to person, oriented to place and oriented to time Cranial nerves: Yes Equal, round and reactive pupils present and Yes Normal hearing present Speech: No Abnormal speech present Extrem General: Yes normal to inspection, No clubbing, No cyanosis and No edema Psych Appearance: grossly normal and well kempt Mental Status: mental status grossly normal Speech and movement: Normal speech and movement present Affect: normal affect Attitude: cooperative Thought process: Normal thought process present and not confabulating Thought content: Normal thought content present Insight: Limited insight present (Psych) Judgement: Limited judgement present (Psych) Assessment & Plan Assessment & Plan (1) Constipation: Code(s): K59.00 - Constipation, unspecified Category: Medical (2) Tubular adenoma of colon: Comment: Repeat colonoscopy in 2024 Code(s): D12.6 - Benign neoplasm of colon, unspecified Category: Medical (3) Rectocele: Code(s): N81.6 - Rectocele Category: Medical (4) Pre-op examination: Code(s): Z01.818 - Encounter for other preprocedural examination Category: Medical (5) Hemorrhoids: Code(s): K64.9 - Unspecified hemorrhoids Category: Medical Plan This patient has been lost to follow-up since 08/2021 and it appears she is now due for a screening colonoscopy. She had a defecogram ordered by Dr. Simpson that shows a rectocele with incomplete emptying. I explain that the treatment for this problem is surgery, but she says this MD retired and never went over the results with her. In the past she was only mildly constipated and this resolved with colace. Now she is having BM's with pain inside of the rectum she describes as burning. The results of the defecogram is in the chart. I tell her that sometimes this can be managed with constipation medications. She says that the colace really never worked for her, which is common. She has only mild relief with OTC prep H wipes and creams. She moves her bowels daily, but the BM's are hard and she has incomplete evacuation. She has failed senna, bisacodyl, colace, Miralax and fiber. She also has pain in the outer rectum and feels like it is a hemorrhoid. I am referring her to general surgery. No prior anesthesia or sedation problems. She denies any cardiac or respiratory problem. No ID problems. She had 1 TA on her last scope in 2019. Orders: Orders Comprehensive Met. Panel Today D12.6 - Benign neoplasm of colon, unspecified, K59.00 - Constipation, unspecified, N81.6 - Rectocele, Z01.818 - Encounter for other preprocedural examination Complete Blood Count Auto Diff Today D12.6 - Benign neoplasm of colon, unspecified, K59.00 - Constipation, unspecified, N81.6 - Rectocele, Z01.818 - Encounter for other preprocedural examination Colonoscopy - GI Use Only Today D12.6 - Benign neoplasm of colon, unspecified, K59.00 - Constipation, unspecified, N81.6 - Rectocele, Z01.818 - Encounter for other preprocedural examination Referrals General Surgery Referral K64.9 - Unspecified hemorrhoids Medications: New peg 3350-electrolytes 236-22.74-6.74 -5.86 gram (Golytely) until fecal effluent is clear; do not exceed a total volume of 2,000 mL 240 mL PO Q10M 1 day 4,000 mL 0RF Z12.11 - Encounter for screening for malignant neoplasm of colon linaclotide (Linzess) 72 mcg PO QAM 30 caps 6RF K59.00 - Constipation, unspecified, N81.6 - Rectocele bisacodyl (Dulcolax (bisacodyl)) 10 mg (2 x 5 mg) PO BEDTIME 2 days 4 tabs 0RF Coding Level of Care Code Est Pt Level 4 (00754) Diagnoses Constipation K59.00 Tubular adenoma of colon D12.6 Rectocele N81.6 Pre-op examination Z01.818 Hemorrhoids K64.9
[2023-06-19 15:48] VITALS: BP 111/55; PULSE 82; BMI 28.9
== END 2023-06-19 16:19 | disposition home or self-care (01) ==
PROVIDERS: PCP Internal Medicine; Visit Provider Nurse Practitioner
DX: K59.00 Constipation, unspecified (principal); D12.6 Benign neoplasm of colon, unspecified; N81.6 Rectocele; Z01.818 Encounter for other preprocedural examination; K64.9 Unspecified hemorrhoids
CPT/HCPCS: 99214

== ENCOUNTER → 2023-06-19 15:22 | Outpatient (BNVA) | payer OTHER, SELFPAY | PROVIDERS: PCP Internal Medicine; Visit Provider Nurse Practitioner | DX: Z01.818 Encounter for other preprocedural examination (principal); K59.00 Constipation, unspecified; K64.9 Unspecified hemorrhoids; N81.6 Rectocele; D12.6 Benign neoplasm of colon, unspecified | CPT/HCPCS: 99212 ==

== ENCOUNTER 2023-07-11 09:42 | Outpatient (AMB) | payer OTHER, SELFPAY ==
--- NOTE | 2023-07-11 09:50 | A.OFFVIS_ITS ---
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 Glass Engraver Required: Yes Glass Engraver Language: Respiratory Therapy Manager Name: Jessie DAMON Information Interpreted: non-clinical & clinical Production Metal Sprayer: Production Metal Sprayer Present (Jessie DAMON) Accompanied by: Self / Same As Patient Allergies acetaminophen [From Benadryl Ahssdwi-Rhhbm-Nwkbxio] Adverse Reaction (Verified 0 07/11/23 09:58) Agitated diphenhydramine [From Benadryl Xuqatbt-Jsyrf-Fqhfbzq] Adverse Reaction (Verified 07/11/23 09:58) Agitated phenylephrine [From Benadryl Ckyzbrq-Yxqga-Ydqlzdy] Adverse Reaction (Verified 07/11/23 09:58) Agitated pseudoephedrine [From Benadryl Gfrtoho-Rjmok-Nyswpme] Adverse Reaction (Verified 07/11/23 09:58) Agitated Post menopausal: Yes HPI Comments Details: Presenting for annual exam. No complaints. Last Pap/HPV was negative in 05/09 Last Mammogram was BI-RADS 1 in 03/14 Last colonoscopy was in 05/08, recommendation was to repeat in 3-5 years, the patient is scheduled for another colonoscopy in October 2023 [facility] Medical History (Updated 07/11/23 @ 10:02 by Elliott Luque MD) Well woman exam Physical exam Diarrhea GERD (gastroesophageal reflux disease) Right sided sciatica Uterine leiomyoma Constipation 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 Surgical History Hx of colonoscopy History of delivery Family History Father COPD (chronic obstructive pulmonary disease) Mother NIDDY (non-insulin dependent diabetes mellitus in young) Paternal Grandmother Alzheimer's dementia Maternal Grandmother NIDDY (non-insulin dependent diabetes mellitus in young) Social History Housing: Apartment Alcohol intake: current Alcohol intake frequency: holidays/special occasions only Alcohol type: beer Patient Tobacco Use Status: Never used Tobacco e-Cigarette/Vaping Use: Never Used Second Hand Smoke Exposure: No Advance Directives Date on File: 11/25/19 service: No Current occupational status: employed Current occupational exposures/hazards: No Cognitive needs: No Hearing needs: No Vision needs: No Female Reproductive History Menstrual Age of Menarche: 10 Menopause type: natural Total pregnancies: 3 Full term: 1 Number of Living Children: 1 Ab spontaneous: 2 Date of last pap smear: 04/29/20 Date of Mammogram: 02/28/23 Review of Systems Const All systems reviewed & are unremarkable except as noted in HPI and below Card Reports as per HPI Resp Reports as per HPI GI Reports as per HPI and Reports no additional complaints Reports as per HPI Physical Exam Vital Signs: Last Vital Signs BP 112/68 07/11/23 09:51 BMI result Body Mass Index 28.0 Const General: cooperative, healthy appearing and comfortable Chest Chest palpation & inspection: normal inspection of the chest and normal palpation of entire chest wall Breast/axilla inspection: normal inspection of the breasts and normal inspection of the axillae Breast/axilla palpation: normal palpation of the breasts, normal palpation of the axillae and no axillary lymphadenopathy Resp Effort & Inspection: normal respiratory effort Auscultation: clear to auscultation bilaterally Percussion: percussion normal Cardio Palpation: normal PMI Rate: regular rate Rhythm: regular rhythm Heart sounds: no murmurs and no rubs Peripheral pulses: Peripheral pulses 2+ throughout GI Inspection: Yes normal to inspection Palpation (GI): Soft to palpation, nontender, no guarding, not rigid and No hepatosplenomegaly present Percussion: Yes normal to percussion Auscultation: normal bowel sounds Rectal Exam - Female: deferred General: Yes bladder normal to palpation External Female Exam: No lesion Speculum Exam - Vagina: normal appearance of the vagina, normal palpation, normal vaginal discharge and not erythematous Speculum Exam - Cervix: normal appearance of the cervix and normal palpation Bimanual exam- vagina & uterus: normal bimanual exam, normal palpation, uterine size normal, bladder normal to palpation, consistency normal and normal palpation Bimanual Exam- Adnexa, other: normal adnexae, no masses and no tenderness Assessment & Plan Assessment & Plan (1) Well woman exam: Code(s): Z01.419 - Encounter for gynecological examination (general) (routine) without abnormal findings Category: Medical Plan: Co testing not indicated this year. Counseled the patient about the recommended dietary allowance of 1200 mg of Calcium & 600 IU of vitamin D. Instructions given the patient to schedule her next screening Mammogram in 03/15. The patient is scheduled for screening colonoscopy in 11/12 . The patient was instructed to perform monthly self-breast exams and schedule annual exam in a year. All questions answered and the patient verbalized understanding. Coding Level of Care Code Est Pt Prev Care 40-64y(05064) Diagnoses Well woman exam Z01.419
[2023-07-11 09:51] VITALS: BP 112/68; BMI 28.0
== END 2023-07-11 10:15 | disposition home or self-care (01) ==
PROVIDERS: Visit Provider Obstetrics & Gynecology
DX: Z01.419 Encounter for gynecological examination (general) (routine) without abnormal findings (principal)
CPT/HCPCS: 99396

== ENCOUNTER → 2023-07-11 09:42 | Outpatient (BNVA) | payer OTHER, SELFPAY | PROVIDERS: Visit Provider Obstetrics & Gynecology | DX: Z01.419 Encounter for gynecological examination (general) (routine) without abnormal findings (principal) | CPT/HCPCS: 99396 ==

== ENCOUNTER 2023-07-30 15:18 | Outpatient (REF) | payer OTHER, SELFPAY ==
[2023-07-30 15:29] LABS: MANUAL DIFF FLAG NO
[2023-07-30 15:52] LABS: Basophils Percent Auto 0.4 % (0-2); Eosinophils Absolute Auto 0.1 X10*3/uL (0.0-0.4); Eosinophils Percent Auto 0.8 % (0-4); Hematocrit 35.7 % (37.0-47.0); Hemoglobin 11.6 g/dl (12.0-16.0); Imm Gran Abs Auto 0.02 X10*3/uL (0.00-0.03); Imm Gran Pct Auto 0.2 % (0.0-0.4); Lymphocytes Absolute Auto 2.8 X10*3/uL (1.2-4.9); Lymphocytes Percent Auto 33.6 % (20-40); Mean Corpuscular HGB Conc 32.5 g/dl (31.0-35.0); Mean Corpuscular Hemoglobin 29.4 pg (27.0-33.0); Mean Corpuscular Volume 90.6 fL (80.0-98.0); Mean Platelet Volume 11.5 fL (9.4-12.3); Monocytes Absolute Auto 0.6 X10*3/uL (0.1-1.2); Monocytes Percent Auto 7.7 % (2-11); Neutrophils Absolute Auto 4.7 x10*3/uL (2.0-8.3); Neutrophils Percent Auto 57.3 % (45-73); Platelet Count 265 X10*3/uL (160-400); Red Blood Count 3.94 X10*6/uL (4.20-5.50); Red Cell Distribution Width 13.5 % (11.0-16.0); White Blood Count 8.3 X10*3/uL (4.8-10.8)
[2023-07-30 16:14] LABS: Alanine Aminotransferase 16 U/L (0-31); Albumin Level 4.2 g/dL (3.5-5.0); Alkaline Phosphatase 107 U/L (39-117); Anion Gap 9 (12-20); Aspartate Amino Transferase 18 U/L (5-31); Bilirubin Total 0.2 mg/dL (0.0-1.0); Blood Urea Nitrogen 13 mg/dL (9-16); Calcium 9.5 mg/dL (8.4-10.2); Carbon Dioxide 29 mmol/L (22-29); Chloride 106 mmol/L (96-108); Estimated Glomerular Filt Rate > 60; Glucose Random 96 mg/dL (60-115); Potassium 3.8 mmol/L (3.3-5.1); Sodium 140 mmol/L (135-145); Total Protein 7.4 g/dL (6.5-8.0)
== END 2023-07-30 15:19 | disposition home or self-care (01) ==
LOC: HO.LAB 15:18
PROVIDERS: PCP Internal Medicine; Visit Provider Nurse Practitioner
DX: Z01.818 Encounter for other preprocedural examination (principal); D12.6 Benign neoplasm of colon, unspecified; N81.6 Rectocele; K59.00 Constipation, unspecified
CPT/HCPCS: 36415; 80053; 85025

== ENCOUNTER 2023-08-03 12:12 | Outpatient (AMB) | payer OTHER, SELFPAY ==
--- NOTE | 2023-08-03 12:15 | A.OFFVIS_ITS ---
Vital Signs 08/03/23 12:24 Height 5 ft 2 in Weight 154 lb 5.177 oz BMI 28.2 BP 110/56 L Blood Pressure Location Lt brachial Position Sitting Pulse 76 Pulse Source Pulse Oximeter Pulse Oximetry (%) 98 Oxygen Delivery Method Room Air Intake Visit Reasons: Follow up constipation Intake Note: Gay presents in office today for a scheduled FUV. CC; Pt was Rx'd dulcolax and linzess at her last visit. Pt reports that their sx have improved and that they have no new concerns or significant sx. Pt does require refills of both medications. Pt reports that she had some bloodwork the other day and would like to discuss those results. Donor Services Technician Required: Yes Donor Services Technician Name: [id number] Gurjit Allergies acetaminophen [From Benadryl Zuqyhzk-Ofhdq-Aigacfc] Adverse Reaction (Verified 08/03/23 12:23) Agitated diphenhydramine [From Benadryl Muylgvg-Qmiry-Fbnfsgs] Adverse Reaction (Verified 08/03/23 12:23) Agitated phenylephrine [From Benadryl Vucohvd-Fhfhc-Tbnzswy] Adverse Reaction (Verified 08/03/23 12:23) Agitated pseudoephedrine [From Benadryl Gvzekpi-Zzjdy-Udrkmoc] Adverse Reaction (Verified 08/03/23 12:23) Agitated HPI HPI Follow up constipation: Details: Assessment & Plan (1) Constipation: Code(s): K59.00 - Constipation, unspecified Category: Medical (2) Tubular adenoma of colon: Comment: Repeat colonoscopy in 2024 Code(s): D12.6 - Benign neoplasm of colon, unspecified Category: Medical (3) Rectocele: Code(s): N81.6 - Rectocele Category: Medical (4) Pre-op examination: Code(s): Z01.818 - Encounter for other preprocedural examination Category: Medical (5) Hemorrhoids: Code(s): K64.9 - Unspecified hemorrhoids Category: Medical Plan This patient has been lost to follow-up since 08/2021 and it appears she is now due for a screening colonoscopy. She had a defecogram ordered by Dr. Simpson that shows a rectocele with incomplete emptying. I explain that the treatment for this problem is surgery, but she says this MD retired and never went over the results with her. In the past she was only mildly constipated and this resolved with colace. Now she is having BM's with pain inside of the rectum she describes as burning. The results of the defecogram is in the chart. I tell her that sometimes this can be managed with constipation medications. She says that the colace really never worked for her, which is common. She has only mild relief with OTC prep H wipes and creams. She moves her bowels daily, but the BM's are hard and she has incomplete evacuation. She has failed senna, bisacodyl, colace, Miralax and fiber. She also has pain in the outer rectum and feels like it is a hemorrhoid. I am r eferring her to general surgery. No prior anesthesia or sedation problems. She denies any cardiac or respiratory problem. No ID problems. She had 1 TA on her last scope in 2019. Orders: Orders Comprehensive Met. Panel Today D12.6 - Benign neoplasm of colon, unspecified, K59.00 - Constipation, unspecified, N81.6 - Rectocele, Z01.818 - Encounter for other preprocedural examination Complete Blood Count Auto Diff Today D12.6 - Benign neoplasm of colon, unsp ecified, K59.00 - Constipation, unspecified, N81.6 - Rectocele, Z01.818 - Encounter for other preprocedural examination Colonoscopy - GI Use Only Today D12.6 - Benign neoplasm of colon, unspecified, K59.00 - Constipation, unspecified, N81.6 - Rectocele, Z01.818 - Encounter for other preprocedural examination Referrals General Surgery Referral K64.9 - Unspecified hemorrhoids Medications: New peg 3350-electrolytes 236-22.74-6.74 -5.86 gram (Golytely) until fecal effluent is clear; do not exceed a total volume of 2,000 mL 240 mL PO Q10M 1 day 4,000 mL 0RF Z12.11 - Encounter for screening for malignant neoplasm of colon linaclotide (Linzess) 72 mcg PO QAM 30 caps 6RF K59.00 - Constipation, unspecified, N81.6 - Rectocele bisacodyl (Dulcolax (bisacodyl)) 10 mg (2 x 5 mg) PO BEDTIME 2 days 4 tabs 0RF LABS: Laboratory Tests 07/30/23 15:28 WBC 8.3 RBC 3.94 L Hgb 11.6 L Hct 35.7 L MCV 90.6 MCH 29.4 Plt Count 265 Estimated GFR > 60 Total Bilirubin 0.2 AST 18 ALT 16 Alkaline Phosphatase 107 COLONOSCOPY SCHEDULED FOR 11/01/2023 BIOPSY TODAY'S VISIT [place] #Alejandro Pineda She says she is doing a little better, she received the LInzess at 72mcg and she is moving her bowels better - but she still has some bother sometimes. I present the possibility of increasing the LInzess vs adding an OTC laxative. She agrees to a trial of increasing the LInzess to 145mcg. ROV 6 weeks to adjust. She is aware of colonoscopy date. [facility] Medical History (Updated 08/03/23 @ 12:24 by NITISH Alvarenga) Family history of hepatitis B Pre-op examination Well woman exam Physical exam Diarrhea GERD (gastroesophageal reflux disease) Right sided sciatica Uterine leiomyoma Constipation 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 Surgical History Hx of colonoscopy History of delivery Family History Father COPD (chronic obstructive pulmonary disease) Mother NIDDY (non-insulin dependent diabetes mellitus in young) Paternal Grandmother Alzheimer's dementia Maternal Grandmother NIDDY (non-insulin dependent diabetes mellitus in young) Social History Housing: Apartment Alcohol intake: current Alcohol intake frequency: holidays/special occasions only Alcohol type: beer Patient Tobacco Use Status: Never used Tobacco e-Cigarette/Vaping Use: Never Used Second Hand Smoke Exposure: No Advance Directives Date on File: 11/25/19 service: No Current occupational status: employed Current occupational exposures/hazards: No Cognitive needs: No Hearing needs: No Vision needs: No Female Reproductive History Menstrual Age of Menarche: 10 Review of Systems Const Denies fatigue, Denies fever(s), Denies night sweats, Denies poor appetite and Denies weight loss ENT Reports Normal hearing present, Denies dental pain, Denies dysphagia, Denies hearing loss, Denies mouth pain, Denies odynophagia, Denies throat swelling, Denies tongue swelling and Reports other (Dentition adequate) Card Reports no additional complaints Resp Reports no additional complaints GI Details: Denies abdominal pain, Denies melena, Denies bloating, Denies hematochezia, Reports constipation, Denies GI cramping, Denies dysphagia, Denies excessive flatus, Denies early satiety, Denies heartburn, Denies diarrhea, Denies nausea, Denies odynophagia, Denies vomiting and Denies hematemesis Skin/Breast Denies pruritus, Denies lesions, Denies rash and Denies jaundice Neuro Reports Normal hearing present and Denies Abnormal speech present Endo Denies fatigue Aller/Immun Denies throat swelling and Denies tongue swelling Physical Exam Vital Signs: Last Vital Signs Pulse 76 08/03/23 12:24 BP 110/56 L 08/03/23 12:24 Pulse Ox 98 08/03/23 12:24 Oxygen Delivery Method Room Air 08/03/23 12:24 BMI result Body Mass Index 28.2 Const General: cooperative, no acute distress, well developed and well groomed Nutritional Appearance: average body habitus and well nourished Orientation/consciousness: oriented to person, oriented to place and oriented to time Limitations: language barrier HEENT Head: Yes normocephalic and Yes atraumatic Eyes General: appearance normal, both eyes and all related structures Pupils: Equal, round and reactive pupils present Neck Neck: Yes normal visual inspection and Yes no lymphadenopathy Thyroid: Thyroid normal Resp Effort & Inspection: normal respiratory effort and able to speak in complete sentences Auscultation: clear to auscultation bilaterally Cardio Rate: regular rate Rhythm: regular rhythm Heart sounds: Normal, physiologic split S2 sound present Peripheral pulses: radial pulses present and posterior tibial pulses present GI Inspection: No distended and No Abdominal panniculus present Palpation (GI): Soft to palpation, nontender, no guarding, not rigid and No hepatosplenomegaly present Percussion: Yes normal to percussion Auscultation: normal bowel sounds Rectal Exam - Female: deferred Skin General skin exam: no rashes or lesions noted, turgor normal, skin not dry, no jaundice, No spider nevi and no striae Rashes: no rashes Nails: normal Neuro General: oriented to person, oriented to place and oriented to time Cranial nerves: Yes Equal, round and reactive pupils present and Yes Normal hearing present Speech: No Abnormal speech present Extrem General: Yes normal to inspection, No clubbing, No cyanosis and No edema Psych Appearance: grossly normal and well kempt Mental Status: mental status grossly normal Speech and movement: Normal speech and movement present Affect: normal affect Attitude: cooperative Thought process: Normal thought process present and not confabulating Thought content: Normal thought content present Insight: Limited insight present (Psych) Judgement: Limited judgement present (Psych) Assessment & Plan Assessment & Plan (1) Constipation: Code(s): K59.00 - Constipation, unspecified Category: Medical (2) Rectocele: Code(s): N81.6 - Rectocele Category: Medical Plan [place] #Alejandro Live She says she is doing a little better, she received the LInzess at 72mcg and she is moving her bowels better - but she still has some bother sometimes. I present the possibility of increasing the LInzess vs adding an OTC laxative. She agrees to a trial of increasing the LInzess to 145mcg. ROV 6 weeks to adjust. She is aware of colonoscopy date. Medications: New linaclotide (Linzess) Take first thing in the morning with a full glass of water. 145 mcg PO QAM 30 caps 3RF K58.1 - Irritable bowel syndrome with constipation On Hold linaclotide (Linzess) Hold Comment: Doctor's Order 72 mcg PO QAM 30 caps 6RF K59.00 - Constipation, unspecified, N81.6 - Rectocele Coding Level of Care Code Est Pt Level 3 (85648) Diagnoses Constipation K59.00 Rectocele N81.6
[2023-08-03 12:24] VITALS: BP 110/56; PULSE 76; O2SAT 98; BMI 28.2
== END 2023-08-03 12:43 | disposition home or self-care (01) ==
PROVIDERS: PCP Internal Medicine; Visit Provider Nurse Practitioner
DX: K59.00 Constipation, unspecified (principal); N81.6 Rectocele
CPT/HCPCS: 99213

== ENCOUNTER → 2023-08-03 12:12 | Outpatient (BNVA) | payer OTHER, SELFPAY | PROVIDERS: PCP Internal Medicine; Visit Provider Nurse Practitioner | DX: K59.00 Constipation, unspecified (principal); N81.6 Rectocele; Z79.899 Other long term (current) drug therapy; Z86.010 Personal history of colon polyps | CPT/HCPCS: 99212 ==

== ENCOUNTER → 2023-09-05 15:33 | Outpatient (BNVA) | payer OTHER, SELFPAY | PROVIDERS: PCP Internal Medicine; Visit Provider Surgery | DX: K62.89 Other specified diseases of anus and rectum (principal) | CPT/HCPCS: 46600; 99202 ==

== ENCOUNTER → 2023-09-05 15:33 | Outpatient (AMB) | payer OTHER, SELFPAY ==
[2023-09-05 15:49] VITALS: BMI 28.0
--- NOTE | 2023-09-05 15:49 | A.OFFVIS_ITS ---
Vital Signs 09/05/23 15:49 Height 5 ft 2 in Weight 153 lb BMI 28.0 Intake Visit Reasons: Hemorrhoids Intake Note: This patient presents for an assessment for Hemorrhoids. Patient c/o; reports pain with bowel movements, reports discomfort after bowel movements, reports no rectal bleeding or blood in the stools, reports occasional constipation. Fish Hatchery Worker Required: Yes Fish Hatchery Worker Language: Poultry Husbandry Worker Services: Fish Hatchery Worker Present Fish Hatchery Worker Name: Farooq Information Interpreted: non-clinical & clinical Accompanied by: Self / Same As Patient Allergies acetaminophen [From Benadryl Swfefat-Ehkev-Eshwcnh] Adverse Reaction (Verified 09/05/23 15:52) Agitated diphenhydramine [From Benadryl Opyycjc-Pjetx-Pumumdy] Adverse Reaction (Verified 09/05/23 15:52) Agitated phenylephrine [From Benadryl Rtzrext-Bntmz-Dlmrdfg] Adverse Reaction (Verified 09/05/23 15:52) Agitated pseudoephedrine [From Benadryl Wdbvlan-Pdxfg-Bidbfve] Adverse Reaction (Verified 09/05/23 15:52) Agitated Medication List - Last Reconciled 09/05/23 by Zachary Morataya MD bisacodyl (Dulcolax (bisacodyl)) 10 mg (2 x 5 mg) PO BEDTIME 2 days linaclotide (Linzess) 145 mcg PO QAM linaclotide (Linzess) 72 mcg PO QAM peg 3350-electrolytes 236-22.74-6.74 -5.86 gram (Golytely) 240 mL PO Q10M 1 day HPI HPI Hemorrhoids: Details: 53-year-old female referred for question of hemorrhoids. She describes having pain in her anus on and off when she is sitting down. She describes this as ?pressure? around her anus. She denies any bleeding. She really does not feel any obvious mass in the area. She denies any constipation. She feels that the anus seems to be ?inflamed? once in a while. This does not happen often. [facility] Medical History (Updated 09/05/23 @ 16:27 by Zachary Morataya MD) Anal pain Family history of hepatitis B Pre-op examination Well woman exam Physical exam Diarrhea GERD (gastroesophageal reflux disease) Right sided sciatica Uterine leiomyoma Constipation 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 Surgical History Hx of colonoscopy History of delivery Family History Father COPD (chronic obstructive pulmonary disease) Mother VICKI (non-insulin dependent diabetes mellitus in young) Paternal Grandmother Alzheimer's dementia Maternal Grandmother VICKI (non-insulin dependent diabetes mellitus in young) Social History Housing: Apartment Alcohol intake: current Alcohol intake frequency: holidays/special occasions only Alcohol type: beer Patient Tobacco Use Status: Never used Tobacco e-Cigarette/Vaping Use: Never Used Second Hand Smoke Exposure: No Advance Directives Date on File: 11/25/19 service: No Current occupational status: employed Current occupational exposures/hazards: No Cognitive needs: No Hearing needs: No Vision needs: No Female Reproductive History Menstrual Age of Menarche: 10 Review of Systems Const Denies chills and Denies fever(s) Card Denies chest pain, Denies dyspnea and Denies dyspnea on exertion Resp Denies cough, Denies dyspnea and Denies dyspnea on exertion GI Denies hematochezia and Denies change in bowel habits Denies hematuria Musc Denies back pain and Denies limited range of motion Neuro Denies focal weakness and Denies convulsions Psych Denies depression and Denies mood swings Physical Exam Vital Signs: BMI result Body Mass Index 28.0 Const General: comfortable and no acute distress Orientation/consciousness: patient oriented x3 Neck Neck: Yes no lymphadenopathy Resp Auscultation: clear to auscultation bilaterally Cardio Rhythm: regular rhythm GI Other: Rectal exam shows no perianal lesions, no hemorrhoids, no palpable mass Palpation (GI): Soft to palpation, nontender and no guarding Neuro General: patient oriented x3 Office Procedures Anoscopy She was in jamar-knife position. The anoscope was gently inserted. A full examination of the anal canal was done. Examination of the anal canal did not reveal any obvious lesions. There was no significant size internal hemorrhoids. No bleeding. There was no induration on digital exam. There was no fissure or ulceration. There is no palpable mass. There is no tenderness on digital exam. [id number] Assessment & Plan Assessment & Plan (1) Anal pain: Code(s): K62.89 - Other specified diseases of anus and rectum Category: Medical Plan: Examination including anoscopy does not reveal any mass, lesion, or large hemorrhoid. It is possible that she may have some occasional swelling of her internal hemorrhoids causing this pain and discomfort I am going to send her prescription for anal auditory is with steroids which she is to take on a p.r.n. basis. I did tell her that she can come back to the office to be re-evaluated if she notices worsening or persistence of problems down the line. She is comfortable with the plan. Coding Level of Care Code New Pt Level 3 (21310) Diagnoses Anal pain K62.89 CPT Codes Details - CPT: 55442-[id number] ([id number])
== END ==
PROVIDERS: PCP Internal Medicine; Visit Provider Surgery
DX: K62.89 Other specified diseases of anus and rectum (principal)
CPT/HCPCS: 46600; 99203

== ENCOUNTER 2023-09-14 16:02 | Outpatient (AMB) | payer OTHER, SELFPAY ==
[2023-09-14 16:05] VITALS: BP 99/54; PULSE 79; BMI 28.2
--- NOTE | 2023-09-14 16:05 | A.OFFVIS_ITS ---
Vital Signs 09/14/23 16:05 Height 5 ft 2 in Weight 154 lb 5.177 oz BMI 28.2 BP 99/54 L Blood Pressure Location Lt brachial Position Sitting Pulse 79 Intake Visit Reasons: 6 weeks titrate LIzness Intake Note: Patient in office today in follow up of constipation. CC: Patient reports that she is doing well on Linzess but believes that she might benefit from a higher dose. Denies any new GI symptoms today. [employer] Required: Yes Accompanied by: Self / Same As Patient Allergies acetaminophen [From Benadryl Pjtzmuf-Rvvrx-Natztvy] Adverse Reaction (Verified 09/05/23 15:52) Agitated diphenhydramine [From Benadryl Gopkfol-Rtvhn-Ftwuevm] Adverse Reaction (Verified 09/05/23 15:52) Agitated phenylephrine [From Benadryl Dmldugw-Iumns-Nrlhooy] Adverse Reaction (Verified 0 09/05/23 15:52) Agitated pseudoephedrine [From Benadryl Hqbldqb-Zlfys-Hilzugi] Adverse Reaction (Verified 09/05/23 15:52) Agitated HPI HPI 6 weeks titrate LIzness: Details: Assessment & Plan (1) Constipation: Code(s): K59.00 - Constipation, unspecified Category: Medical (2) Rectocele: Code(s): N81.6 - Rectocele Category: Medical Plan Citizen of [place] She says she is doing a little better, she received the LInzess at 72mcg and she is moving her bowels better - but she still has some bother sometimes. I present the possibility of increasing the LInzess vs adding an OTC laxative. She agrees to a trial of increasing the LInzess to 145mcg. ROV 6 weeks to adjust. She is aware of colonoscopy date. Medications: New linaclotide (Linzess) Take first thing in the morning with a full glass of water. 145 mcg PO QAM 30 caps 3RF K58.1 - Irritable bowel syndrome with constipation On Hold linaclotide (Linzess) Hold Comment: Doctor's Order 72 mcg PO QAM 30 caps 6RF K59.00 - Constipation, unspecified, N81.6 - Rectocele LABS: COLONOSCOPY SCHEDULED FOR 11/01/2023?? BIOPSY TODAY'S VISIT Citizen of [place] # [place]IVE She never received the LInzess at the 145mcg dose so she is still at the 72mcg dose. I will re send. She saw Dr. Morataya and had a check for roids. He sent supps but these are usually not covered by insurance so I sent the cream. She has her colonoscpoy upcoming, I will see her 11/14 after the scope [facility] Medical History (Updated 09/05/23 @ 16:27 by Zachary Morataya MD) Anal pain Family history of hepatitis B Pre-op examination Well woman exam Physical exam Diarrhea GERD (gastroesophageal reflux disease) Right sided sciatica Uterine leiomyoma Constipation 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 Surgical History Hx of colonoscopy History of delivery Family History Father COPD (chronic obstructive pulmonary disease) Mother NIDDY (non-insulin dependent diabetes mellitus in young) Paternal Grandmother Alzheimer's dementia Maternal Grandmother NIDDY (non-insulin dependent diabetes mellitus in young) Social History Housing: Apartment Alcohol intake: current Alcohol intake frequency: holidays/special occasions only Alcohol type: beer Patient Tobacco Use Status: Never used Tobacco e-Cigarette/Vaping Use: Never Used Second Hand Smoke Exposure: No Advance Directives Date on File: 11/25/19 service: No Current occupational status: employed Current occupational exposures/hazards: No Cognitive needs: No Hearing needs: No Vision needs: No Female Reproductive History Menstrual Age of Menarche: 10 Review of Systems Const Denies fatigue, Denies fever(s), Denies night sweats, Denies poor appetite and Denies weight loss ENT Reports Normal hearing present, Denies dental pain, Denies dysphagia, Denies hearing loss, Denies mouth pain, Denies odynophagia, Denies throat swelling, Denies tongue swelling and Reports other (Dentition adequate) Card Reports no additional complaints Resp Reports no additional complaints GI Details: Denies abdominal pain, Denies melena, Denies bloating, Denies hematochezia, Reports constipation, Denies GI cramping, Denies dysphagia, Denies excessive flatus, Denies early satiety, Denies heartburn, Denies diarrhea, Denies nausea, Denies odynophagia, Denies vomiting and Denies hematemesis Skin/Breast Denies pruritus, Denies lesions, Denies rash and Denies jaundice Neuro Reports Normal hearing present and Denies Abnormal speech present Endo Denies fatigue Aller/Immun Denies throat swelling and Denies tongue swelling Physical Exam Vital Signs: Last Vital Signs Pulse 79 09/14/23 16:05 BP 99/54 L 09/14/23 16:05 BMI result Body Mass Index 28.2 Const General: cooperative, no acute distress, well developed and well groomed Nutritional Appearance: average body habitus and well nourished Orientation/consciousness: oriented to person, oriented to place and oriented to time Limitations: No language barrier HEENT Head: Yes normocephalic and Yes atraumatic Eyes General: appearance normal, both eyes and all related structures Pupils: Equal, round and reactive pupils present Neck Neck: Yes normal visual inspection and Yes no lymphadenopathy Thyroid: Thyroid normal Resp Effort & Inspection: normal respiratory effort and able to speak in complete sentences Auscultation: clear to auscultation bilaterally Cardio Rate: regular rate Rhythm: regular rhythm Heart sounds: Normal, physiologic split S2 sound present Peripheral pulses: radial pulses present and posterior tibial pulses present GI Inspection: No distended and No Abdominal panniculus present Palpation (GI): Soft to palpation, nontender, no guarding, not rigid and No hepatosplenomegaly present Percussion: Yes normal to percussion Auscultation: normal bowel sounds Rectal Exam - Female: deferred Skin General skin exam: no rashes or lesions noted, turgor normal, skin not dry, no jaundice, No spider nevi and no striae Rashes: no rashes Nails: normal Neuro General: oriented to person, oriented to place and oriented to time Cranial nerves: Yes Equal, round and reactive pupils present and Yes Normal hearing present Speech: No Abnormal speech present Extrem General: Yes normal to inspection, No clubbing, No cyanosis and No edema Psych Appearance: grossly normal and well kempt Mental Status: mental status grossly normal Speech and movement: Normal speech and movement present Affect: normal affect Attitude: cooperative Thought process: Normal thought process present and not confabulating Thought content: Normal thought content present Insight: Fair insight present (Psych) Judgement: Fair judgement present (Psych) Assessment & Plan Assessment & Plan (1) Constipation: Code(s): K59.00 - Constipation, unspecified Category: Medical (2) Rectocele: Code(s): N81.6 - Rectocele Category: Medical (3) Tubular adenoma of colon: Comment: Repeat colonoscopy in 2024 Code(s): D12.6 - Benign neoplasm of colon, unspecified Category: Medical Plan Citizen of [place] # [place]IVE She never received the LInzess at the 145mcg dose so she is still at the 72mcg dose. I will re send. She saw Dr. Morataya and had a check for roids. He sent supps but these are usually not covered by insurance so I sent the cream. She has her colonoscpoy upcoming, I will see her 11/14 after the scope LABS: COLONOSCOPY SCHEDULED FOR 11/01/2023?? BIOPSY Medications: New hydrocortisone 2.5% (Proctosol HC) BE SURE TO INCLUDE RECTAL APPICATOR!! 1 appl MO BID 30 grams 6RF hemorrhoids K64.9 - Unspecified hemorrhoids Refilled hydrocortisone acetate (Anucort-HC) 25 mg MO BID PRN 24 ea 0RF Hemorrhoid pain linaclotide (Linzess) Take first thing in the morning with a full glass of water. 145 mcg PO QAM 30 caps 3RF K58.1 - Irritable bowel syndrome with constipation Coding Level of Care Code Est Pt Level 3 (04341) Diagnoses Constipation K59.00 Rectocele N81.6 Tubular adenoma of colon D12.6
== END 2023-09-14 16:20 | disposition home or self-care (01) ==
PROVIDERS: PCP Internal Medicine; Visit Provider Nurse Practitioner
DX: K59.00 Constipation, unspecified (principal); N81.6 Rectocele; D12.6 Benign neoplasm of colon, unspecified
CPT/HCPCS: 99213

== ENCOUNTER → 2023-09-14 16:02 | Outpatient (BNVA) | payer OTHER, SELFPAY | PROVIDERS: PCP Internal Medicine; Visit Provider Nurse Practitioner | DX: K58.1 Irritable bowel syndrome with constipation (principal); K59.00 Constipation, unspecified; K64.9 Unspecified hemorrhoids; N81.6 Rectocele; D12.6 Benign neoplasm of colon, unspecified; Z79.899 Other long term (current) drug therapy | CPT/HCPCS: 99212 ==

== ENCOUNTER 2023-11-01 07:22 | Day surgery (SDC) | payer OTHER, SELFPAY ==
--- NOTE | 2023-10-30 14:25 | HO.ANESPROP2 ---
Documented by User: Gisele Sen NP 10/30/23 14:26 HPI - Anesthesia Eval Consult details Narrative: 53yo F for Colonoscopy PMFSH Active Problems Active Problems: All Active Problems Anal pain (Acute) Tachycardia (Acute) Rectocele (Acute) Constipation (Acute) Chest tightness (Acute) Mid back pain on left side (Acute) Abdominal pain (Acute) Abdominal cramping (Acute) Right sided sciatica (Acute) Chronic fatigue disorder (Acute) Hemorrhoids (Acute) Tubular adenoma of colon (Acute) Breast cyst (Acute) Endometriosis (Acute) Past Medical History Medical History (Updated 09/05/23 @ 16:27 by Zachary Morataya MD) Anal pain Family history of hepatitis B Pre-op examination Well woman exam Physical exam Diarrhea GERD (gastroesophageal reflux disease) Right sided sciatica Uterine leiomyoma Constipation 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 Family History Family History Father COPD (chronic obstructive pulmonary disease) Mother NIDDY (non-insulin dependent diabetes mellitus in young) Paternal Grandmother Alzheimer's dementia Maternal Grandmother NIDDY (non-insulin dependent diabetes mellitus in young) Surgical History Surgical History Hx of colonoscopy History of delivery Social History Social History Housing: Apartment Alcohol intake: current Alcohol intake frequency: holidays/special occasions only Alcohol type: beer Patient Tobacco Use Status: Never used Tobacco e-Cigarette/Vaping Use: Never Used Second Hand Smoke Exposure: No Have you been hit, kicked, punched, or otherwise hurt by someone within the past year? If so, by whom?: No Are you DNR?: No Advance Directives: No Advance Directives Information Provided: Yes Advance Directives Date on File: 11/25/19 Recently lost weight without trying: No Nutrition Risks: No Nutritional Risk service: No Current occupational status: employed Current occupational exposures/hazards: No Cognitive needs: No Hearing needs: No Vision needs: No Meds Allergies Allergy/AdvReac Type Severity Reaction Status Date / Time acetaminophen AdvReac Agitated Verified 09/05/23 15:52 [From Benadryl Syyhdbl-Vvctf-Ghloqvo] diphenhydramine AdvReac Agitated Verified 09/05/23 15:52 [From Benadryl Gtxlktf-Zdmas-Utzdylj] phenylephrine AdvReac Agitated Verified 09/05/23 15:52 [From Benadryl Bsidcxn-Gpxwg-Uwkcyrl] pseudoephedrine AdvReac Agitated Verified 09/05/23 15:52 [From Benadryl Xrhrjtc-Rsiaz-Idhjebm] Assessment and Plan Assessment Anesthesia Assessment: Chart Reviewed Documented by User: Skinny Castillo MD 11/01/23 08:54 PMFSH Past Medical History Medical History (Updated 09/05/23 @ 16:27 by Zachary Morataya MD) Anal pain Family history of hepatitis B Pre-op examination Well woman exam Physical exam Diarrhea GERD (gastroesophageal reflux disease) Right sided sciatica Uterine leiomyoma Constipation 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 Family History Family History Father COPD (chronic obstructive pulmonary disease) Mother NIDDY (non-insulin dependent diabetes mellitus in young) Paternal Grandmother Alzheimer's dementia Maternal Grandmother NIDDY (non-insulin dependent diabetes mellitus in young) Family history of problems with anesthesia: No Surgical History Surgical History Hx of colonoscopy History of delivery History of Problems with Anesthesia: No Social History Social History Housing: Apartment Alcohol intake: current Alcohol intake frequency: holidays/special occasions only Alcohol type: beer Patient Tobacco Use Status: Never used Tobacco e-Cigarette/Vaping Use: Never Used Second Hand Smoke Exposure: No Have you been hit, kicked, punched, or otherwise hurt by someone within the past year? If so, by whom?: No Are you DNR?: No Advance Directives: No Advance Directives Information Provided: Yes Advance Directives Date on File: 11/25/19 Recently lost weight without trying: No Nutrition Risks: No Nutritional Risk service: No Current occupational status: employed Current occupational exposures/hazards: No Cognitive needs: No Hearing needs: No Vision needs: No Meds Allergies Allergy/AdvReac Type Severity Reaction Status Date / Time acetaminophen AdvReac Agitated Verified 09/05/23 15:52 [From Benadryl Eorrjkm-Gbkns-Qlvghqk] diphenhydramine AdvReac Agitated Verified 09/05/23 15:52 [From Benadryl Mczulsv-Odfsn-Vdivemf] phenylephrine AdvReac Agitated Verified 09/05/23 15:52 [From Benadryl Cxtphhb-Wtuon-Imcriii] pseudoephedrine AdvReac Agitated Verified 09/05/23 15:52 [From Benadryl Rtyzsxb-Qonrb-Akrehxb] Exam Airway Mallampati Class: II TM Dist: >3cm Neck ROM: Full Heart: ok Lungs: ok Assessment and Plan Assessment Anesthesia Assessment: Anesthesia Plan Discussed Final Anesthetic Review Family History of Problems with Anesthesia: No History of Problems with Anesthesia: No NPO: Yes ASA Class: II Final Preanesthetic Review: No Changes in Pt Med Stat, Meds/Allgs Chart Reviewed, Consent Obtained/Reviewed and Anes Risks/Benef Reviewed Patient Risk: Low Procedure Risk: Low Anesthetic Plan Anesthetic Plan: MAC: and Agree w/ Assess. and Plan Disposition: Standard PACU
[2023-11-01 07:37] VITALS: BP 128/90; PULSE 79; RESP 18; TEMP 36.9; O2SAT 98; BMI 28.2
[2023-11-01] MEDS: Lactated Ringers 1,000 ML 100 ML IVCONT (07:52)
--- NOTE | 2023-11-01 08:35 | P.HPSUR_ITS ---
Pre-Procedural Eval Section A - 24 Hr Update-Section A only Date of Service: 11/01/23 Section B - Complete if H&P > 30 days Chief Complaint: Benign neoplasm of colon, unspecified Relevant Family History (Specify if Yes): No Relevant Social History: None Present Medications: see Short Stay Collaborative assessment Medical History: Significant History (Anal pain Family history of hepatitis B Diarrhea GERD (gastroesophageal reflux disease) Right sided sciatica Uterine leiomyoma Constipation 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) History of Previous Operations: Relevant previous surgery/procedure and date(s) (Hx of colonoscopy History of delivery) Allergies: Allergies Allergy/AdvReac Type Severity Reaction Status Date / Time acetaminophen AdvReac Agitated Verified 09/05/23 15:52 [From Benadryl Ozigwsh-Vnpng-Xjrpctj] diphenhydramine AdvReac Agitated Verified 09/05/23 15:52 [From Benadryl Zzvqmqy-Zofwf-Cjnlqlf] phenylephrine AdvReac Agitated Verified 09/05/23 15:52 [From Benadryl Zirizkm-Wpnmt-Gcdwzkl] pseudoephedrine AdvReac Agitated Verified 09/05/23 15:52 [From Benadryl Qhohcnz-Ttdwp-Fnhwxyb] Review of Systems Sugical H&P ROS: Negative: Constitution, Cardiovascular, Respiratory, Neurolog ical, Psychiatric, Hem-Onc, Allergic/Immunologic, Gastrointestinal, Genitourinary, Musculoskeletal, Integumentary, Endocrine and Eyes/Ears/Nose/Throat Exam Surgical H&P Exam: Normal: HEENT, Normal: Heart, Normal: Lungs, Normal: Extremities, Normal: Abdomen, Normal: Skin and Normal: Neurological Plan Diagnosis/Plan: Unchanged I have reviewed the history and physical and performed a pertinent physical examination on my patient. No changes have occurred unless specified. Time Spent With Patient Time: Total time managing care of this patient today ____ minutes.
--- NOTE | 2023-11-01 09:13 | HO.OPN-COLON ---
Colonoscopy Operative Note Operative Note Date of Service: 11/01/23 Narrative: Operative Information Procedure Description: Colonoscopy Indication: screening, hx of colon polyp Anesthesia: MAC COLONOSCOPY Instrument: Olympus variable stiffness pediatric scope 190L Colonoscopy Monitoring: Vital signs and clinical assessment, continuous EKG monitoring, Pulse oximetry, Carbon Dioxide monitoring and blood pressure monitoring were done throughout the procedure. Colon withdrawal time was 12 minutes. Procedure: The patient was placed in the left lateral decubitis position and pre-procedure medications were administered. After a digital rectal examination of the ano-rectum, the video colonoscope was inserted into the rectum and advanced through the colon to the cecum/TI. The colonoscope was slowly withdrawn in a retrograde panoramic fashion and the colon mucosa was carefully examined including a retroflexed view of the rectum. Findings and interventions are described below. Procedure Difficulty: easy Findings: Terminal Ileum-normal Cecum:normal Right sided retroflexion- normal Ascending Colon: normal Transverse Colon -normal Descending Colon: 4-5 mm sessile polyp removed with cold forceps Sigmoid Colon: normal Rectum: Retroflexion with small internal hemorrhoids seen, grade I Anorectum - normal Intervention: cold forceps Colon preparation: [place] Bowel Preparation Scale Right colon; 2 Transverse colon: 2 Left colon; 2 (0 = Unprepared colon segment with mucosa not seen due to solid stool that cannot be cleared. 1 = Portion of mucosa of the colon segment seen, but other areas of the colon segment not well seen due to staining, residual stool and/or opaque liquid. 2 = Minor amount of residual staining, small fragments of stool and/or opaque liquid, but mucosa of colon segment seen well. 3 = Entire mucosa of colon segment seen well with no residual staining, small fragments of stool or opaque liquid) Impression and Post Procedure Diagnosis: colon polyp internal hemorrhoids Plan: High fiber diet leaflet Avoid straining at stool, epsom salts and sitz bath, anusol supps or cream Repeat Colonoscopy in 5 years due to prior hx of polyps or earlier if clinically indicated Above findings were reviewed with the patient and relevant handouts were provided if indicated.
[2023-11-01 09:15] VITALS: BP 88/38; PULSE 71; RESP 18; TEMP 36.2; O2SAT 97
[2023-11-01 09:17] VITALS: BP 88/39; PULSE 65; RESP 16; O2SAT 97
[2023-11-01 09:23] VITALS: BP 95/50; PULSE 65; RESP 16; O2SAT 97
[2023-11-01 09:30] VITALS: BP 95/51; PULSE 69; RESP 16; O2SAT 97
[2023-11-01 09:45] VITALS: BP 106/65; PULSE 65; RESP 16; TEMP 36.3; O2SAT 99
== END 2023-11-01 10:05 | disposition home or self-care (01) ==
PROVIDERS: PCP Internal Medicine; Visit Provider Internal Medicine Gastroenterology
PROC: 0DJD8ZZ Inspection of Lower Intestinal Tract, Via Natural or Artificial Opening Endoscopic (ICD-10-PCS; CPT 45378; principal; 2023-11-01 09:00)
DX: Z12.11 Encounter for screening for malignant neoplasm of colon (principal); Z86.010 Personal history of colon polyps; K63.5 Polyp of colon; K64.0 First degree hemorrhoids; K58.1 Irritable bowel syndrome with constipation; R19.7 Diarrhea, unspecified; K21.9 Gastro-esophageal reflux disease without esophagitis; N81.6 Rectocele; M54.31 Sciatica, right side; Z79.899 Other long term (current) drug therapy
CPT/HCPCS: 45380; 88305; J2704

== ENCOUNTER → 2023-11-01 07:22 | Outpatient (BNV) | payer OTHER, SELFPAY | PROVIDERS: PCP Internal Medicine; Visit Provider Internal Medicine Gastroenterology | DX: Z12.11 Encounter for screening for malignant neoplasm of colon (principal); D12.4 Benign neoplasm of descending colon; K64.8 Other hemorrhoids | CPT/HCPCS: 45380 ==

== ENCOUNTER 2023-11-15 08:49 | Outpatient (AMB) | payer OTHER, SELFPAY ==
--- NOTE | 2023-11-15 08:53 | A.OFFVIS_ITS ---
Vital Signs 3 11/15/23 08:54 Height 5 ft 2 in Weight 153 lb 7.068 oz BMI 28.1 BP 108/68 Blood Pressure Location Rt brachial Position Sitting Pulse 74 Pulse Source Pulse Oximeter Pulse Oximetry (%) 99 Oxygen Delivery Method Room Air Intake Visit Reasons: s/p colon Intake Note: Gay presents in office today for a scheduled s/p FUV. CC; Pt is here to discuss the results of their recent procedure. Pt denies any new concerns or complications post op. Pt denies the need for refill of the linzess. Pt states that they are not taking this medication at this time. [employer] Crop Farm Worker Required: Yes [employer] Crop Farm Worker Services: Field Crop Farm Worker Present Field Crop Farm Worker Name: Shiraz [id number] Information Interpreted: non-clinical & clinical Accompanied by: Self / Same As Patient Allergies acetaminophen [From Benadryl Omdsiaa-Ajquo-Rsbvpuv] Adverse Reaction (Verified 11/15/23 08:54) Agitated diphenhydramine [From Benadryl Wdtyomv-Idwud-Hwwxvhs] Adverse Reaction (Verified 11/15/23 08:54) Agitated phenylephrine [From Benadryl Emvfvvj-Adukr-Pdfewmv] Adverse Reaction (Verified 11/15/23 08:54) Agitated pseudoephedrine [From Benadryl Evudevo-Fzaap-Ecgmasi] Adverse Reaction (Verified 11/15/23 08:54) Agitated HPI HPI s/p colon: Details: Assessment & Plan (1) Constipation: Code(s): K59.00 - Constipation, unspecified Category: Medical (2) Rectocele: Code(s): N81.6 - Rectocele Category: Medical (3) Tubular adenoma of colon: Comment: Repeat colonoscopy in 2024 Code(s): D12.6 - Benign neoplasm of colon, unspecified Category: Medical Plan Romansh # Oliverio lIVE She never received the LInzess at the 145mcg dose so she is still at the 72mcg dose. I will re send. She saw Dr. Morataya and had a check for roids. He sent supps but these are usually not covered by insurance so I sent the cream. She has her colonoscopy upcoming, I will see her 11/14 after the scope New hydrocortisone 2.5% (Proctosol HC) BE SURE TO INCLUDE RECTAL APPICATOR!! 1 appl KS BID 30 grams 6RF hemorrhoids K64.9 - Unspecified hemorrhoids Refilled hydrocortisone acetate (Anucort-HC) 25 mg KS BID PRN 24 ea 0RF Hemorrhoid pain linaclotide (Linzess) Take first thing in the morning with a full glass of water. 145 mcg PO QAM 30 caps 3RF K58.1 - Irritable bowel syndrome with constipation COLONOSCOPY 11/01/23 Findings: Terminal Ileum-normal Cecum:normal Right sided retroflexion- normal Ascending Colon: normal Transverse Colon -normal Descending Colon: 4-5 mm sessile polyp removed with cold forceps Sigmoid Colon: normal Rectum: Retroflexion with small internal hemorrhoids seen, grade I Anorectum - normal Intervention: cold forceps Impression and Post Procedure Diagnosis: colon polyp internal hemorrhoids Plan: High fiber diet leaflet Avoid straining at stool, epsom salts and sitz bath, anusol supps or cream Repeat Colonoscopy in 5 years due to prior hx of polyps or earlier if clinically indicated BIOPSY Received: 11/01/23 Diagnosis Colon, descending, polyp: Polypoid colonic mucosa with lymphoid aggregate; no adenomatous dysplasia seen. TODAY'S VISIT [place] Islander #Bina and Jolene She is agreeable to a 5 year follow up. The procedure was well tolerated. The results were explained and the patient is agreeable to the follow-up interval as stated. The bowel pattern has returned to normal. Education was provided to tell any 1st degree relatives about their findings to be sure that they are screened by age 45. Educated that they will be put on a recall list when it is time for their repeat scope but should they move out of state or away from the hospital they will need to remember along with their primary to repeat the procedure in a timely fashion to avoid any adverse complications. She received the Linzess, but she then changed her diet to eat more fiber and she is now moving her bowels well. Of course, this is great! She still has what she characterizes as rectal pain but with further conversation - this also happens when sits on anything hard and she finds that massaging the area near the base of the spine and above the tailbone offers relief. I examine/palpate the area and she has a severe muscle spasm to the right of her proximal coccyx. She confirms this is the area of concern and she has relief as I massage it. At times the pain spreads to the left side. I will send her for xr of the LS and coccyx and give her a 10 days trial of flexeril. she confirms that she fell recently on the area, and that she had seen a chiropractor in the past in her home country for a similar problem. ROV 6 weeks. [facility] Medical History Anal pain Family history of hepatitis B Pre-op examination Well woman exam Physical exam Diarrhea GERD (gastroesophageal reflux disease) Right sided sciatica Uterine leiomyoma Constipation 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 Surgical History Hx of colonoscopy History of delivery Family History Father COPD (chronic obstructive pulmonary disease) Mother NIDDY (non-insulin dependent diabetes mellitus in young) Paternal Grandmother Alzheimer's dementia Maternal Grandmother NIDDY (non-insulin dependent diabetes mellitus in young) Social History Housing: Apartment Alcohol intake: current Alcohol intake frequency: holidays/special occasions only Alcohol type: beer Patient Tobacco Use Status: Never used Tobacco e-Cigarette/Vaping Use: Never Used Second Hand Smoke Exposure: No Advance Directives Date on File: 11/25/19 service: No Current occupational status: employed Current occupational exposures/hazards: No Cognitive needs: No Hearing needs: No Vision needs: No Female Reproductive History Menstrual Age of Menarche: 10 Review of Systems Const Denies fatigue, Denies fever(s), Denies night sweats, Denies poor appetite and Denies weight loss ENT Reports Normal hearing present, Denies dental pain, Denies dysphagia, Denies hearing loss, Denies mouth pain, Denies odynophagia, Denies throat swelling, Denies tongue swelling and Reports other (Dentition adequate) Card Reports no additional complaints Resp Reports no additional complaints GI Details: Denies abdominal pain, Denies melena, Denies bloating, Denies hematochezia, Denies constipation, Denies GI cramping, Denies dysphagia, Denies excessive flatus, Denies early satiety, Denies heartburn, Denies diarrhea, Denies nausea, Denies odynophagia, Denies vomiting and Denies hematemesis Musc Reports back pain, Reports muscle cramps and Reports other (tailbone pain) Skin/Breast Denies pruritus, Denies lesions, Denies rash and Denies jaundice Neuro Reports Normal hearing present and Denies Abnormal speech present Endo Denies fatigue Aller/Immun Denies throat swelling and Denies tongue swelling Physical Exam Vital Signs: Last Vital Signs Pulse 74 11/15/23 08:54 BP 108/68 11/15/23 08:54 Pulse Ox 99 11/15/23 08:54 Oxygen Delivery Method Room Air 11/15/23 08:54 BMI result Body Mass Index 28.1 Const General: cooperative, no acute distress, well developed and well groomed Nutritional Appearance: average body habitus and well nourished Orientation/consciousness: oriented to person, oriented to place and oriented to time Limitations: language barrier HEENT Head: Yes normocephalic and Yes atraumatic Eyes General: appearance normal, both eyes and all related structures Pupils: Equal, round and reactive pupils present Neck Neck: Yes normal visual inspection and Yes no lymphadenopathy Thyroid: Thyroid normal Resp Effort & Inspection: normal respiratory effort and able to speak in complete sentences Auscultation: clear to auscultation bilaterally Cardio Rate: regular rate Rhythm: regular rhythm Heart sounds: Normal, physiologic split S2 sound present Peripheral pulses: radial pulses present and posterior tibial pulses present GI Inspection: No distended and No Abdominal panniculus present Palpation (GI): Soft to palpation, nontender, no guarding, not rigid and No hepatosplenomegaly present Percussion: Yes normal to percussion Auscultation: normal bowel sounds Rectal Exam - Female: deferred Back/Spine/Pelvis Thoracic/Lumbar Spine: thoracic and lumbar spine normal to inspection Sacrum: tenderness on the right Back/spine/pelvis image: 2 1. area of muscle spasm Skin General skin exam: no rashes or lesions noted, turgor normal, skin not dry, no jaundice, No spider nevi and no striae Rashes: no rashes Nails: normal Neuro General: oriented to person, oriented to place and oriented to time Cranial nerves: Yes Equal, round and reactive pupils present and Yes Normal hearing present Speech: No Abnormal speech present Extrem General: Yes normal to inspection, No clubbing, No cyanosis and No edema Psych Appearance: grossly normal and well kempt Mental Status: mental status grossly normal Speech and movement: Normal speech and movement present Affect: normal affect Attitude: cooperative Thought process: Normal thought process present and not confabulating Thought content: Normal thought content present Insight: Fair insight present (Psych) and Limited insight present (Psych) Judgement: Fair judgement present (Psych) and Limited judgement present (Psych) Assessment & Plan Assessment & Plan (1) Tubular adenoma of colon: Comment: 10/2023 scope= no polyps repeat in 5 years; 04/2019 scope= TA Code(s): D12.6 - Benign neoplasm of colon, unspecified Category: Medical (2) Constipation: Code(s): K59.00 - Constipation, unspecified Category: Medical (3) Muscle spasm: Code(s): M62.838 - Other muscle spasm Category: Medical (4) Back pain: Code(s): M54.9 - Dorsalgia, unspecified Category: Medical (5) Acute coccygeal pain: Code(s): M53.3 - Sacrococcygeal disorders, not elsewhere classified Category: Medical Plan [place]er #Bina and Jolene She is agreeable to a 5 year follow up. The procedure was well tolerated. The results were explained and the patient is agreeable to the follow-up interval as stated. The bowel pattern has returned to normal. Education was provided to tell any 1st degree relatives about their findings to be sure that they are screened by age 45. Educated that they will be put on a recall list when it is time for their repeat scope but should they move out of state or away from the hospital they will need to remember along with their primary to repeat the procedure in a timely fashion to avoid any adverse complications. She received the Linzess, but she then changed her diet to eat more fiber and she is now moving her bowels well. Of course, this is great! She still has what she characterizes as rectal pain but with further conversation - this also happens when sits on anything hard and she finds that massaging the area near the base of the spine and above the tailbone offers relief. I examine/palpate the area and she has a severe muscle spasm to the right of her proximal coccyx. She confirms this is the area of concern and she has relief as I massage it. At times the pain spreads to the left side. I will send her for xr of the LS and coccyx and give her a 10 days trial of flexeril. she confirms that she fell recently on the area, and that she had seen a chiropractor in the past in her home country for a similar problem. ROV 6 weeks. Orders: Orders 2 XR lumbar spine 2-3V Today M53.3 - Sacrococcygeal disorders, not elsewhere classified, M54.9 - Dorsalgia, unspecified, M62.838 - Other muscle spasm XR sacrum coccyx min 2V Today M53.3 - Sacrococcygeal disorders, not elsewhere classified, M54.9 - Dorsalgia, unspecified, M62.838 - Other muscle spasm Medications: New 2 cyclobenzaprine 5 mg PO TID 30 tabs 0RF M62.838 - Other muscle spasm Coding Level of Care Code Est Pt Level 4 (80156) Diagnoses Tubular adenoma of colon D12.6 Constipation K59.00 Muscle spasm M62.838 Back pain M54.9 Acute coccygeal pain M53.3 Time Spent (min) 32
[2023-11-15 08:54] VITALS: BP 108/68; PULSE 74; O2SAT 99; BMI 28.1
== END 2023-11-15 09:46 | disposition home or self-care (01) ==
PROVIDERS: PCP Internal Medicine; Visit Provider Nurse Practitioner
DX: D12.6 Benign neoplasm of colon, unspecified (principal); K59.00 Constipation, unspecified; M62.838 Other muscle spasm; M54.9 Dorsalgia, unspecified; M53.3 Sacrococcygeal disorders, not elsewhere classified
CPT/HCPCS: 99214

== ENCOUNTER → 2023-11-15 08:49 | Outpatient (BNVA) | payer OTHER, SELFPAY | PROVIDERS: PCP Internal Medicine; Visit Provider Nurse Practitioner | DX: K58.1 Irritable bowel syndrome with constipation (principal); K64.9 Unspecified hemorrhoids; D12.6 Benign neoplasm of colon, unspecified; M62.838 Other muscle spasm | CPT/HCPCS: 99212 ==

== ENCOUNTER 2023-11-30 15:25 | Outpatient (REF) | payer OTHER, SELFPAY ==
--- NOTE | ~2023-11-30 | XR_ITS ---
EXAMINATION: XR LUMBOSACRAL SPINE CLINICAL INFORMATION: Back pain. Muscle spasm. COMPARISON: X-ray dated December 01, 2018. TECHNIQUE: Three views of the lumbosacral spine. FINDINGS: Facet joint hypertrophy at L5-S1. S-shaped curvature of the lower lumbar spine which could be positional. No lytic or blastic lesions. Multiple dystrophic calcifications overlapping the sacrum no acute cortical disruption or gross malalignment. XR/XR lumbar spine 2-3V IMPRESSION: Spondylosis, L5-S1. Probable calcified uterine fibroids. Electronically signed by: Ebenezer Raines MD 12/28/2023 08:02 AM ALEKSANDRA
--- NOTE | ~2023-11-30 | XR_ITS ---
EXAMINATION: XR SACRUM AND COCCYX CLINICAL INFORMATION: Back pain. Muscle spasm. COMPARISON: None available. TECHNIQUE: 2 views of the sacrum and 2 views of the coccyx were obtained. FINDINGS: No acute cortical disruption. Sclerosis in the sacroiliac joints bilaterally. Spina bifida occulta, congenital variant. Dystrophic ossifications overlapping the sacrum. S-shaped curvature of the lumbar spine which could be positional. Facet joint hypertrophy at L5-S1 bilaterally. XR/XR sacrum coccyx min 2V IMPRESSION: No acute fracture. Concerning calcified uterine fibroids. Electronically signed by: Ebenezer Raines MD 12/28/2023 07:56 AM EST
== END 2023-11-30 15:26 | disposition home or self-care (01) ==
LOC: HO.XRAY 15:25
PROVIDERS: PCP Internal Medicine; Visit Provider Nurse Practitioner
DX: M54.9 Dorsalgia, unspecified (principal); M53.3 Sacrococcygeal disorders, not elsewhere classified; M62.838 Other muscle spasm
CPT/HCPCS: 72100; 72220

== ENCOUNTER → 2023-11-30 15:30 | Outpatient (BNV) | payer OTHER, SELFPAY | PROVIDERS: PCP Internal Medicine; Visit Provider Radiology Diagnostic Radiology | DX: M54.9 Dorsalgia, unspecified (principal) | CPT/HCPCS: 72100; 72220 ==

== ENCOUNTER 2023-12-27 15:44 | Outpatient (AMB) | payer OTHER, SELFPAY ==
--- NOTE | 2023-12-27 15:49 | MHC.PC.OV ---
Vital Signs 12/27/23 15:51 Height 5 ft 2 in Weight 151 lb BMI 27.6 BP 112/78 Blood Pressure Location Lt brachial Position Sitting Intake Visit Reasons: Annual Exam Intake Note: Patient here for an annual physical exam Doctor Of Nursing Practice Required: No Accompanied by: Self / Same As Patient Allergies acetaminophen [From Benadryl Egxavpi-Hrhyo-Egnisfq] Adverse Reaction (Verified 12/27/23 16:06) Agitated diphenhydramine [From Benadryl Aksgtrh-Ihyrv-Igdryqz] Adverse Reaction (Verified 12/27/23 16:06) Agitated phenylephrine [From Benadryl Vxiqbbn-Olenc-Stegfsj] Adverse Reaction (Verified 12/27/23 16:06) Agitated pseudoephedrine [From Benadryl Yrbbcyq-Yddqr-Wdlsfqa] Adverse Reaction (Verified 12/27/23 16:06) Agitated Medication List - Last Reconciled 12/27/23 by Amber Fountain MD No Known Home Meds Tobacco use date assessed: 12/27/23 Dental Screening Dental Screen Date: 12/27/23 Did you have a dental visit in the last 12 months?: No Did you have a dental problem in the last 6 months where you did not have access to dental care?: No Was dental information given to patient?: Patient has dentist HPI HPI Comments History of Present Illness Details This is a 53-year-old female that comes for her physical exam. Mammogram done 2023. Pap smear done 2020. Colonoscopy done 2023. No chest pain or shortness on breath. Complains of epigastric pain that happens occasionally and upper GI series will be ordered. Also complains headaches that started about a month ago. Will prescribe sumatriptan as needed. [facility] Medical History (Updated 12/28/23 @ 07:13 by Amber Fountain MD) Physical exam Anal pain Family history of hepatitis B Pre-op examination Well woman exam Diarrhea GERD (gastroesophageal reflux disease) Right sided sciatica Uterine leiomyoma Constipation 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 Surgical History Hx of colonoscopy History of delivery Family History Father COPD (chronic obstructive pulmonary disease) Mother NIDDY (non-insulin dependent diabetes mellitus in young) Paternal Grandmother Alzheimer's dementia Maternal Grandmother NIDDY (non-insulin dependent diabetes mellitus in young) Social History Housing: Apartment Alcohol intake: current Alcohol intake frequency: holidays/special occasions only Alcohol type: beer Patient Tobacco Use Status: Never used Tobacco e-Cigarette/Vaping Use: Never Used Second Hand Smoke Exposure: No Advance Directives Date on File: 11/25/19 service: No Current occupational status: employed Current occupational exposures/hazards: No Cognitive needs: No Hearing needs: No Vision needs: No Female Reproductive History Menstrual Age of Menarche: 10 Questionnaire PHQ-9 Over the last 2 weeks, how often have you been bothered by any of the following problems? 1. Little interest or pleasure in doing things: not at all 2. Feeling down, depressed, or hopeless: not at all 3. Trouble falling or staying asleep, or sleeping too much: not at all 4. Feeling tired or having little energy: not at all 5. Poor appetite or overeating: not at all 6. Feeling bad about yourself - or that you are a failure or have let yourself or your family down: not at all 7. Trouble concentrating on things, such as reading the newspaper or watching television: not at all 8. Moving or speaking so slowly that other people could have noticed. Or the opposite - being so fidgety or restless that you have been moving around a lot more than usual: not at all 9. Thoughts that you would be better off or of hurting yourself in some way: not at all Total score: 0 Depression Screening Interpretation: Negative Depression Screening Done: Yes 07075 - PHQ-9 Billing: Yes Source: Developed by Drs. Colton Hawk, Kristal Dunn, Ismael Corrales and colleagues, with an educational tavon from [employer] Thrive Questionnaire Date Thrive assessed: 12/27/23 I am a: Patient What is your living situation today?: I have a steady place to live Within the past 12 months, did the food you bought not last and you didn't have the money to get more?: Never true Within the past 12 months, did you worry whether your food would run out before you got money to buy more?: Never true Do you have trouble paying for medicines?: No Do you have trouble getting transportation to medical appointments?: No Do you have trouble paying your heating and electricity bill?: No Do you have trouble taking care of your child, family member or friend?: No Do you have trouble with day-to-day activities such as bathing, preparing meals, shopping, managing finances, etc.?: No Are you currently unemployed and looking for a job?: No Are you interested in more education?: Yes Please select the resources that you would like help with: Education Currently or been in a relationship where the following occur: No concerns reported THRIVE Score: 0 AUDIT C Alcohol Use Questionnaire (AUDIT-C) 1. How often do you have a drink containing alcohol?: Monthly or less 2. How many drinks containing alcohol do you have on a typical day when you are drinking?: 1 or 2 3. How often do you have six or more drinks on one occasion?: Never Total Score: 1 SHANTEL-7 AMB Questionnaire SHANTEL-7 Date SHANTEL - 7 assessed: 12/27/23 Feeling nervous, anxious, or on edge: 0 = Not at all Not being able to stop or control worryin = Not at all Worrying too much about different things: 0 = Not at all Trouble relaxin = Not at all Being so restless that it is hard to sit still: 0 = Not at all Becoming easily annoyed or irritable: 0 = Not at all Feeling afraid as if something awful might happen: 0 = Not at all Total SHANTEL-7 score (0-4 normal; 5-9 mild; 10-14 moderate; 15-21 severe): 0 Source: Developed by Drs. Colton Hawk, Kristal Dunn, Ismael Corrales and colleagues, with an educational tavon from [employer] SHANTEL-7 Assessment Billing SHANTEL-7 Assessment Tool: SHANTEL-7 Assessment 20613 Review of Systems Const All systems reviewed & are unremarkable except as noted in HPI and below Reports headache(s) ENT Reports headache(s) Card Denies chest pain at rest, Denies chest pain with activity, Denies edema, Denies irregular heart rhythm, Denies claudication, Denies dyspnea, Denies dyspnea on exertion, Denies orthopnea, Denies paroxysmal nocturnal dyspnea and Denies slow heart rate Resp Denies cough, Denies dyspnea and Denies dyspnea on exertion GI Reports abdominal pain, Denies change in bowel habits, Denies excessive flatus, Denies nausea and Denies vomiting Denies urinary incontinence, Denies urinary hesitancy and Denies urinary urgency Musc Denies atrophy, Denies deformity and Denies limited range of motion Neuro Reports headache(s) Physical exam (Primary Care) Vital Signs: Last Vital Signs BP 112/78 12/27/23 15:51 BMI result Body Mass Index 27.6 Tobacco/Smoking Status: Tobacco use Status Tobacco use date assessed 12/27/23 12/27/23 16:02 Patient Tobacco Use Status Never used Tobacco 12/27/23 15:49 e-Cigarette/Vaping Use Never Used 12/27/23 15:49 PHQ-9: PHQ-9 Score PHQ-9: Total score 0 12/27/23 16:23 Depression Screening Interpretation: Negative Thrive Assessment: Date of Thrive Assessment Date Thrive assessed 12/27/23 12/27/23 15:49 Currently or been in a relationship where the following occur: No concerns reported [facility] Head: Yes normal to inspection, Yes normocephalic and Yes atraumatic Ears: external ears normal Eyes General: appearance normal, both eyes and all related structures Eyelids: Yes eyelids normal Conjunctivae: conjunctivae normal Neck Neck: Yes normal visual inspection and Yes supple Resp Effort & Inspection: normal respiratory effort Auscultation: clear to auscultation bilaterally Cardio Jugular venous distension: no JVD Rate: regular rate Rhythm: regular rhythm Heart sounds: S1 normal heart sound present and S2 normal heart sound present GI Inspection: Yes normal to inspection Palpation (GI): Soft to palpation and nontender Auscultation: normal bowel sounds Skin General skin exam: no rashes or lesions noted Neuro General: no focal motor deficits Extrem General: Yes full ROM Psych Appearance: grossly normal Office Procedures Flu Questionnaire Does the patient have a severe egg allergy?: No Does the patient have severe life threatening allergies?: No Does the patient have a fever or illness today?: No Has the patient ever had Guillain-[place] Syndrome?: No Has the patient ever had any past reaction to a flu shot?: No Immunizations Fluarix Triv [id number] (PF) 45 mcg (15 mcg x 3)/0.5 mL IM syringe Performing Provider: Amber Fountain MD [facility] [place] [facility] Administered by: MARISOL Palma on 12/27/23 16:03 Dose Route Admin Location Dispensed Lot Number Expiration Date [employer] 0.5 mL IM Left Deltoid 0.5 mL [id number] 08/18/24 [id number] [employer] VIS Given Date VIS Provided VIS Publication Date 12/27/23 Single Vaccine 23 Eligibility Eligibility Date Funding Source Not [facility] Eligible 12/27/23 Private Coding Level of Care Code Est Pt Level 3 (55891) Est Pt Prev Care 40-64y(01223) Diagnoses Physical exam Z00.00 Epigastric pain R10.13 Migraine without status migrainosus, not intractable, unspecified migraine type G43.909 Migraine type: unspecified Status migrainosus presence: without status migrainosus Intractability: not intractable Additional Codes SHANTEL-7 Assessment Billing - SHANETL-7 Assessment Tool: SHANTEL-7 Assessment 27948 ([id number]) PHQ-9 - 49698 - PHQ-9 Billing: Yes ([id number]) Time Spent (min) 34 Assessment & Plan Assessment & Plan (1) Physical exam: Code(s): Z00.00 - Encounter for general adult medical examination without abnormal findings Category: Medical Plan: Repeat in a year. (2) Epigastric pain: Code(s): R10.13 - Epigastric pain Category: Medical Plan: Upper GI series ordered. (3) Migraine: Code(s): G43.909 - Migraine, unspecified, not intractable, without status migrainosus Category: Medical Qualifiers: Migraine type: unspecified Status migrainosus presence: without status migrainosus Intractability: not intractable Qualified Code(s): G43.909 - Migraine, unspecified, not intractable, without status migrainosus Plan: Start sumatriptan as needed. Orders: Orders Complete Blood Count Auto Diff 12/27/23 D64.9 - Anemia, unspecified Influenza [id number] Immunization 12/27/23 Z23 - Encounter for immunization [place] upper GI series 12/27/23 R10.13 - Epigastric pain IRON PROFILE 12/27/23 D64.9 - Anemia, unspecified Lipid Panel 12/27/23 E78.5 - Hyperlipidemia, unspecified Comprehensive [place]. Panel Fast 12/27/23 Z00.00 - Encounter for general adult medical examination without abnormal findings Medications: New sumatriptan succinate do not exceed 8 doses per 24 hrs 25 mg PO Q2-4H 30 days PRN 9 tabs 2RF migraine headache
[2023-12-27 15:51] VITALS: BP 112/78; BMI 27.6
== END 2023-12-27 16:26 | disposition home or self-care (01) ==
LOC: HO.HMCH 15:45
PROVIDERS: PCP Internal Medicine; Visit Provider Internal Medicine
DX: Z00.00 Encounter for general adult medical examination without abnormal findings (principal); R10.13 Epigastric pain; G43.909 Migraine, unspecified, not intractable, without status migrainosus

== ENCOUNTER → 2023-12-27 15:44 | Outpatient (BNVA) | payer OTHER, SELFPAY | PROVIDERS: PCP Internal Medicine; Visit Provider Internal Medicine | DX: Z00.01 Encounter for general adult medical examination with abnormal findings (principal); Z23 Encounter for immunization; R10.13 Epigastric pain; G43.909 Migraine, unspecified, not intractable, without status migrainosus | CPT/HCPCS: 90471; 90656; 96127; 99212; 99396 ==

== ENCOUNTER 2023-12-28 15:41 | Outpatient (AMB) | payer OTHER, SELFPAY ==
--- NOTE | 2023-12-28 15:43 | MHC.OFFVIS ---
Vital Signs 12/28/23 15:44 Height 5 ft 2 in Weight 152 lb 8.958 oz BMI 27.9 BP 109/60 Blood Pressure Location Lt brachial Position Sitting Pulse 78 Intake Visit Reasons: 6 weeks follow up Intake Note: Patient in office today in follow up of Xrays. CC: Patient reports doing the a little better from pain. Denies other GI symptoms. 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 Accompanied by: Self / Same As Patient Allergies acetaminophen [From Benadryl Vvhfeok-Ibizn-Qrcwtyj] Adverse Reaction (Verified 03/04/24 16:09) Agitated diphenhydramine [From Benadryl Zyitums-Pnnjz-Kkwmegp] Adverse Reaction (Verified 03/04/24 16:09) Agitated phenylephrine [From Benadryl Okzlmif-Cqqxo-Apahsbd] Adverse Reaction (Verified 03/04/24 16:09) Agitated pseudoephedrine [From Benadryl Zoncizt-Ljuci-Axqraqr] Adverse Reaction (Verified 03/04/24 16:09) Agitated HPI HPI 6 weeks follow up: Details: Assessment & Plan (1) Tubular adenoma of colon: Comment: 10/2023 scope= no polyps repeat in 5 years; 04/2019 scope= TA Code(s): D12.6 - Benign neoplasm of colon, unspecified Category: Medical (2) Constipation: Code(s): K59.00 - Constipation, unspecified Category: Medical (3) Muscle spasm: Code(s): M62.838 - Other muscle spasm Category: Medical (4) Back pain: Code(s): M54.9 - Dorsalgia, unspecified Category: Medical (5) Acute coccygeal pain: Code(s): M53.3 - Sacrococcygeal disorders, not elsewhere classified Category: Medical Plan Syriac #Bina and Jolene She is agreeable to a 5 year follow up. The procedure was well tolerated. The results were explained and the patient is agreeable to the follow-up interval as stated. The bowel pattern has returned to normal. Education was provided to tell any 1st degree relatives about their findings to be sure that they are screened by age 45. Educated that they will be put on a recall list when it is time for their repeat scope but should they move out of state or away from the hospital they will need to remember along with their primary to repeat the procedure in a timely fashion to avoid any adverse complications. She received the Linzess, but she then changed her diet to eat more fiber and she is now moving her bowels well. Of course, this is great! She still has what she characterizes as rectal pain but with further conversation - this also happens when sits on anything hard and she finds that massaging the area near the base of the spine and above the tailbone offers relief. I examine/palpate the area and she has a severe muscle spasm to the right of her proximal coccyx. She confirms this is the area of concern and she has relief as I massage it. At times the pain spreads to the left side. I will send her for xr of the LS and coccyx and give her a 10 days trial of flexeril. she confirms that she fell recently on the area, and that she had seen a chiropractor in the past in her [place] country for a similar problem. ROV 6 weeks. Orders: Orders XR lumbar spine 2-3V Today M53.3 - Sacrococcygeal disorders, not elsewhere classified, M54.9 - Dorsalgia, unspecified, M62.838 - Other muscle spasm XR sacrum coccyx min 2V Today M53.3 - Sacrococcygeal disorders, not elsewhere classified, M54.9 - Dorsalgia, unspecified, M62.838 - Other muscle spasm Medications: New cyclobenzaprine 5 mg PO TID 30 tabs 0RF M62.838 - Other muscle spasm X-RAY OF THE LUMBAR SPINE AND COCCYX 12/28/23 FINDINGS: No acute cortical disruption. Sclerosis in the sacroiliac joints bilaterally. Spina bifida occulta, congenital variant. Dystrophic ossifications overlapping the sacrum. S-shaped curvature of the lumbar spine which could be positional. Facet joint hypertrophy at L5-S1 bilaterally. XR/XR sacrum coccyx min 2V IMPRESSION: No acute fracture. Concerning calcified uterine fibroids. FINDINGS: Facet joint hypertrophy at L5-S1. S-shaped curvature of the lower lumbar spine which could be positional. No lytic or blastic lesions. Multiple dystrophic calcifications overlapping the sacrum no acute cortical disruption or gross malalignment. TODAYS VISIT Eritrean #declines I explain the results and she has spina bifida occulta and dystrophinc calcifications around her tailbone along with DJD. She had complained of pain around the tailbone with any pressure or palpation that is not likely a GI problem. Getting more blood for possible inflammatory disease, ROV in February [facility] Medical History Physical exam Anal pain Family history of hepatitis B Pre-op examination Well woman exam Diarrhea GERD (gastroesophageal reflux disease) Right sided sciatica Uterine leiomyoma Constipation 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 Surgical History Hx of colonoscopy History of delivery Family History Father COPD (chronic obstructive pulmonary disease) Mother NIDDY (non-insulin dependent diabetes mellitus in young) Paternal Grandmother Alzheimer's dementia Maternal Grandmother NIDDY (non-insulin dependent diabetes mellitus in young) Social History Housing: Apartment Alcohol intake: current Alcohol intake frequency: holidays/special occasions only Alcohol type: beer Patient Tobacco Use Status: Never used Tobacco e-Cigarette/Vaping Use: Never Used Second Hand Smoke Exposure: No Advance Directives Date on File: 11/25/19 service: No Current occupational status: employed Current occupational exposures/hazards: No Cognitive needs: No Hearing needs: No Vision needs: No Female Reproductive History Menstrual Age of Menarche: 10 Review of Systems Const Denies fatigue, Denies fever(s), Denies night sweats, Denies poor appetite and Denies weight loss ENT Reports Normal hearing present, Denies dental pain, Denies dysphagia, Denies hearing loss, Denies mouth pain, Denies odynophagia, Denies throat swelling, Denies tongue swelling and Reports other (Dentition adequate) Card Reports no additional complaints Resp Reports no additional complaints GI Details: Denies abdominal pain, Denies melena, Denies bloating, Denies hematochezia, Denies constipation, Denies GI cramping, Denies dysphagia, Denies excessive flatus, Denies early satiety, Denies heartburn, Denies diarrhea, Denies nausea, Denies odynophagia, Denies vomiting and Denies hematemesis Musc Reports back pain and Reports myalgias Skin/Breast Denies pruritus, Denies lesions, Denies rash and Denies jaundice Neuro Reports Normal hearing present and Denies Abnormal speech present Endo Denies fatigue Aller/Immun Denies throat swelling and Denies tongue swelling Physical Exam Vital Signs: Last Vital Signs Pulse 78 12/28/23 15:44 BP 109/60 12/28/23 15:44 BMI result Body Mass Index 27.9 Const General: cooperative, no acute distress, well developed and well groomed Nutritional Appearance: average body habitus and well nourished Orientation/consciousness: oriented to person, oriented to place and oriented to time Limitations: No language barrier HEENT Head: Yes normocephalic and Yes atraumatic Eyes General: appearance normal, both eyes and all related structures Pupils: Equal, round and reactive pupils present Neck Neck: Yes normal visual inspection and Yes no lymphadenopathy Thyroid: Thyroid normal Resp Effort & Inspection: normal respiratory effort and able to speak in complete sentences Auscultation: clear to auscultation bilaterally Cardio Rate: regular rate Rhythm: regular rhythm Heart sounds: Normal, physiologic split S2 sound present Peripheral pulses: radial pulses present and posterior tibial pulses present GI Inspection: No distended and No Abdominal panniculus present Palpation (GI): Soft to palpation, nontender, no guarding, not rigid and No hepatosplenomegaly present Percussion: Yes normal to percussion Auscultation: normal bowel sounds Rectal Exam - Female: deferred Skin General skin exam: no rashes or lesions noted, turgor normal, skin not dry, no jaundice, No spider nevi and no striae Rashes: no rashes Nails: normal Neuro General: oriented to person, oriented to place and oriented to time Cranial nerves: Yes Equal, round and reactive pupils present and Yes Normal hearing present Speech: No Abnormal speech present Extrem General: Yes normal to inspection, No clubbing, No cyanosis and No edema Psych Appearance: grossly normal and well kempt Mental Status: mental status grossly normal Speech and movement: Normal speech and movement present Affect: normal affect Attitude: cooperative Thought process: Normal thought process present and not confabulating Thought content: Normal thought content present Insight: Limited insight present (Psych) Judgement: Limited judgement present (Psych) Assessment & Plan Assessment & Plan (1) Spina bifida occulta: Code(s): Q76.0 - Spina bifida occulta Category: Medical (2) Sacral dysfunction: Comment: Multiple dystrophic calcifications of the sacrum on x-ray obtained 09/2023 Code(s): M53.3 - Sacrococcygeal disorders, not elsewhere classified Category: Medical (3) Lumbar facet arthropathy: Code(s): M47.816 - Spondylosis without myelopathy or radiculopathy, lumbar region Category: Medical (4) Lumbar spondylosis: Code(s): M47.816 - Spondylosis without myelopathy or radiculopathy, lumbar region Category: Medical (5) Dystrophic radiologic calcification: Code(s): R93.89 - Abnormal findings on diagnostic imaging of other specified body structures Category: Medical Plan Eritrean #declines I explain the results and she has spina bifida occulta and dystrophinc calcifications around her tailbone along with DJD. She had complained of pain around the tailbone with any pressure or palpation that is not likely a GI problem. Getting more blood for possible inflammatory disease, ROV in February Orders: Orders RAGHAV Reflex Titer and Pattern 12/28/23 M53.3 - Sacrococcygeal disorders, not elsewhere classified, R93.89 - Abnormal findings on diagnostic imaging of other specified body structures C Reactive Protein 12/28/23 M53.3 - Sacrococcygeal disorders, not elsewhere classified, R93.89 - Abnormal findings on diagnostic imaging of other specified body structures Erythrocyte Sedimentation Rate 12/28/23 M53.3 - Sacrococcygeal disorders, not elsewhere classified, R93.89 - Abnormal findings on diagnostic imaging of other specified body structures Rheumatoid Factor 12/28/23 M53.3 - Sacrococcygeal disorders, not elsewhere classified, R93.89 - Abnormal findings on diagnostic imaging of other specified body structures Cyclic Citrullinated Peptide 12/28/23 M53.3 - Sacrococcygeal disorders, not elsewhere classified, R93.89 - Abnormal findings on diagnostic imaging of other specified body structures Coding Level of Care Code Est Pt Level 3 (55657) Diagnoses Spina bifida occulta Q76.0 Sacral dysfunction M53.3 Lumbar facet arthropathy M47.816 Lumbar spondylosis M47.816 Dystrophic radiologic calcification R93.89
[2023-12-28 15:44] VITALS: BP 109/60; PULSE 78; BMI 27.9
== END 2023-12-28 16:21 | disposition home or self-care (01) ==
PROVIDERS: PCP Internal Medicine; Visit Provider Nurse Practitioner
DX: Q76.0 Spina bifida occulta (principal); M53.3 Sacrococcygeal disorders, not elsewhere classified; M47.816 Spondylosis without myelopathy or radiculopathy, lumbar region; R93.89 Abnormal findings on diagnostic imaging of other specified body structures
CPT/HCPCS: 99213

== ENCOUNTER → 2023-12-28 15:41 | Outpatient (BNVA) | payer OTHER, SELFPAY | PROVIDERS: PCP Internal Medicine; Visit Provider Nurse Practitioner | DX: Q76.0 Spina bifida occulta (principal); M53.3 Sacrococcygeal disorders, not elsewhere classified; M47.816 Spondylosis without myelopathy or radiculopathy, lumbar region; R93.89 Abnormal findings on diagnostic imaging of other specified body structures | CPT/HCPCS: 99212 ==

== ENCOUNTER 2024-03-04 15:50 | Outpatient (AMB) | payer OTHER, SELFPAY ==
--- NOTE | 2024-03-04 15:56 | MHC.OFFVIS ---
Vital Signs 03/04/24 16:01 Height 5 ft 2 in Weight 154 lb 5.177 oz BMI 28.2 BP 114/73 Blood Pressure Location Lt brachial Position Sitting Pulse 69 Intake Visit Reasons: 2 month follow up Intake Note: Gay presents in 2 months follow up rectal pain. CC: Patient reports some mild pain from time to time but other than that she is doing well. 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 Accompanied by: Self / Same As Patient Allergies acetaminophen [From Benadryl Ezpxlhn-Vutbl-Ziiebby] Adverse Reaction (Verified 03/04/24 16:09) Agitated diphenhydramine [From Benadryl Cniqkre-Nlddn-Vkrzhtn] Adverse Reaction (Verified 03/04/24 16:09) Agitated phenylephrine [From Benadryl Mdlzvks-Jfuey-Kerdkfd] Adverse Reaction (Verified 03/04/24 16:09) Agitated pseudoephedrine [From Benadryl Ywgreuq-Lhrdu-Wmkture] Adverse Reaction (Verified 03/04/24 16:09) Agitated HPI HPI 2 month follow up: Details: Assessment & Plan (1) Spina bifida occulta: Code(s): Q76.0 - Spina bifida occulta Category: Medical (2) Sacral dysfunction: Comment: Multiple dystrophic calcifications of the sacrum on x-ray obtained 09/2023 Code(s): M53.3 - Sacrococcygeal disorders, not elsewhere classified Category: Medical (3) Lumbar facet arthropathy: Code(s): M47.816 - Spondylosis without myelopathy or radiculopathy, lumbar region Category: Medical (4) Lumbar spondylosis: Code(s): M47.816 - Spondylosis without myelopathy or radiculopathy, lumbar region Category: Medical (5) Dystrophic radiologic calcification: Code(s): R93.89 - Abnormal findings on diagnostic imaging of other specified body structures Category: Medical Orders: Orders RAGHAV Reflex Titer and Pattern Today M53.3 - Sacrococcygeal disorders, not elsewhere classified, R93.89 - Abnormal findings on diagnostic imaging of other specified body structures C Reactive Protein Today M53.3 - Sacrococcygeal disorders, not elsewhere classified, R93.89 - Abnormal findings on diagnostic imaging of other specified body structures Erythrocyte Sedimentation Rate Today M53.3 - Sacrococcygeal disorders, not elsewhere classified, R93.89 - Abnormal findings on diagnostic imaging of other specified body structures Rheumatoid Factor Today M53.3 - Sacrococcygeal disorders, not elsewhere classified, R93.89 - Abnormal findings on diagnostic imaging of other specified body structures Cyclic Citrullinated Peptide Today M53.3 - Sacrococcygeal disorders, not elsewhere classified, R93.89 - Abnormal findings on diagnostic imaging of other specified body structures LABS TODAYS VISIT She forgot about the labs, but she is feeling somewhat better. She did not understand that she did not have to fast for the labs so this was a barrier to getting them done. With this I tell her to please go get the labs so I can decide whether or not 2 point her in the direction of rheumatology for a possible inflammatory arthritis given her tailbone pain and the radiology findings. Her constipation continues to be well controlled by adding fluid and fiber to her diet. Return office visit in 8 weeks [facility] Medical History Physical exam Anal pain Family history of hepatitis B Pre-op examination Well woman exam Diarrhea GERD (gastroesophageal reflux disease) Right sided sciatica Uterine leiomyoma Constipation 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 Surgical History Hx of colonoscopy History of delivery Family History Father COPD (chronic obstructive pulmonary disease) Mother NIDDY (non-insulin dependent diabetes mellitus in young) Paternal Grandmother Alzheimer's dementia Maternal Grandmother NIDDY (non-insulin dependent diabetes mellitus in young) Social History Housing: Apartment Alcohol intake: current Alcohol intake frequency: holidays/special occasions only Alcohol type: beer Patient Tobacco Use Status: Never used Tobacco e-Cigarette/Vaping Use: Never Used Second Hand Smoke Exposure: No Advance Directives Date on File: 11/25/19 service: No Current occupational status: employed Current occupational exposures/hazards: No Cognitive needs: No Hearing needs: No Vision needs: No Female Reproductive History Menstrual Age of Menarche: 10 Review of Systems Const Denies fatigue, Denies fever(s), Denies night sweats, Denies poor appetite and Denies weight loss ENT Reports Normal hearing present, Denies dental pain, Denies dysphagia, Denies hearing loss, Denies mouth pain, Denies odynophagia, Denies throat swelling, Denies tongue swelling and Reports other (Dentition adequate) Card Reports no additional complaints Resp Reports no additional complaints GI Details: Denies abdominal pain, Denies melena, Denies bloating, Denies hematochezia, Reports constipation, Denies GI cramping, Denies dysphagia, Denies excessive flatus, Denies early satiety, Denies heartburn, Denies diarrhea, Denies nausea, Denies odynophagia, Denies vomiting and Denies hematemesis Musc Details: Tailbone pain Reports back pain Skin/Breast Denies pruritus, Denies lesions, Denies rash and Denies jaundice Neuro Reports Normal hearing present and Denies Abnormal speech present Endo Denies fatigue Aller/Immun Denies throat swelling and Denies tongue swelling Physical Exam Vital Signs: Last Vital Signs Pulse 69 03/04/24 16:01 BP 114/73 03/04/24 16:01 BMI result Body Mass Index 28.2 Const General: cooperative, no acute distress, well developed and well groomed Nutritional Appearance: well nourished and overweight Orientation/consciousness: oriented to person, oriented to place and oriented to time Limitations: No language barrier HEENT Head: Yes normocephalic and Yes atraumatic Eyes General: appearance normal, both eyes and all related structures Pupils: Equal, round and reactive pupils present Neck Neck: Yes normal visual inspection and Yes no lymphadenopathy Thyroid: Thyroid normal Resp Effort & Inspection: normal respiratory effort and able to speak in complete sentences Auscultation: clear to auscultation bilaterally Cardio Rate: regular rate Rhythm: regular rhythm Heart sounds: Normal, physiologic split S2 sound present Peripheral pulses: radial pulses present and posterior tibial pulses present GI Inspection: No distended and No Abdominal panniculus present Palpation (GI): Soft to palpation, nontender, no guarding, not rigid and No hepatosplenomegaly present Percussion: Yes normal to percussion Auscultation: normal bowel sounds Rectal Exam - Female: deferred Skin General skin exam: no rashes or lesions noted, turgor normal, skin not dry, no jaundice, No spider nevi and no striae Rashes: no rashes Nails: normal Neuro General: oriented to person, oriented to place and oriented to time Cranial nerves: Yes Equal, round and reactive pupils present and Yes Normal hearing present Speech: No Abnormal speech present Extrem General: Yes normal to inspection, No clubbing, No cyanosis and No edema Psych Appearance: grossly normal and well kempt Mental Status: mental status grossly normal Speech and movement: Normal speech and movement present Affect: normal affect Attitude: cooperative Thought process: Normal thought process present and not confabulating Thought content: Normal thought content present Insight: Limited insight present (Psych) Judgement: Limited judgement present (Psych) Assessment & Plan Assessment & Plan (1) Constipation: Code(s): K59.00 - Constipation, unspecified Category: Medical (2) Dystrophic radiologic calcification: Code(s): R93.89 - Abnormal findings on diagnostic imaging of other specified body structures Category: Medical (3) Lumbar spondylosis: Code(s): M47.816 - Spondylosis without myelopathy or radiculopathy, lumbar region Category: Medical (4) Sacral dysfunction: Comment: Multiple dystrophic calcifications of the sacrum on x-ray obtained 09/2023 Code(s): M53.3 - Sacrococcygeal disorders, not elsewhere classified Category: Medical (5) Spina bifida occulta: Code(s): Q76.0 - Spina bifida occulta Category: Medical Plan She forgot about the labs, but she is feeling somewhat better. She did not understand that she did not have to fast for the labs so this was a barrier to getting them done. With this I tell her to please go get the labs so I can decide whether or not 2 point her in the direction of rheumatology for a possible inflammatory arthritis given her tailbone pain and the radiology findings. Her constipation continues to be well controlled by adding fluid and fiber to her diet. Return office visit in 8 weeks RAGHAV Reflex Titer and Pattern Today M53.3 - Sacrococcygeal disorders, not elsewhere classified, R93.89 - Abnormal findings on diagnostic imaging of other specified body structures C Reactive Protein Today M53.3 - Sacrococcygeal disorders, not elsewhere classified, R93.89 - Abnormal findings on diagnostic imaging of other specified body structures Erythrocyte Sedimentation Rate Today M53.3 - Sacrococcygeal disorders, not elsewhere classified, R93.89 - Abnormal findings on diagnostic imaging of other specified body structures Rheumatoid Factor Today M53.3 - Sacrococcygeal disorders, not elsewhere classified, R93.89 - Abnormal findings on diagnostic imaging of other specified body structures Cyclic Citrullinated Peptide Today M53.3 - Sacrococcygeal disorders, not elsewhere classified, R93.89 - Abnormal findings on diagnostic imaging of other specified body structures LABS Coding Level of Care Code Est Pt Level 3 (69785) Diagnoses Constipation K59.00 Dystrophic radiologic calcification R93.89 Lumbar spondylosis M47.816 Sacral dysfunction M53.3 Spina bifida occulta Q76.0
[2024-03-04 16:01] VITALS: BP 114/73; PULSE 69; BMI 28.2
== END 2024-03-04 16:41 | disposition home or self-care (01) ==
PROVIDERS: PCP Internal Medicine; Visit Provider Nurse Practitioner
DX: K59.00 Constipation, unspecified (principal); R93.89 Abnormal findings on diagnostic imaging of other specified body structures; M47.816 Spondylosis without myelopathy or radiculopathy, lumbar region; M53.3 Sacrococcygeal disorders, not elsewhere classified; Q76.0 Spina bifida occulta
CPT/HCPCS: 99213

== ENCOUNTER → 2024-03-04 15:50 | Outpatient (BNVA) | payer OTHER, SELFPAY | PROVIDERS: PCP Internal Medicine; Visit Provider Nurse Practitioner | DX: K59.00 Constipation, unspecified (principal); R93.89 Abnormal findings on diagnostic imaging of other specified body structures; M47.816 Spondylosis without myelopathy or radiculopathy, lumbar region; M53.3 Sacrococcygeal disorders, not elsewhere classified; Q76.0 Spina bifida occulta | CPT/HCPCS: 99212 ==

== ENCOUNTER 2024-03-08 10:24 | Outpatient (REF) | payer OTHER, SELFPAY | END 2024-03-08 10:25 | disposition home or self-care (01) | LOC: HO.MAMMO 10:24 | PROVIDERS: PCP Internal Medicine; Visit Provider Internal Medicine | DX: Z12.31 Encounter for screening mammogram for malignant neoplasm of breast (principal) | CPT/HCPCS: 77063; 77067 ==

== ENCOUNTER → 2024-03-08 10:30 | Outpatient (BNV) | payer OTHER, SELFPAY | PROVIDERS: PCP Internal Medicine; Visit Provider Internal Medicine | DX: Z12.31 Encounter for screening mammogram for malignant neoplasm of breast (principal) | CPT/HCPCS: 77063; 77067 ==

== ENCOUNTER 2024-04-10 13:10 | Outpatient (REF) | payer OTHER, SELFPAY ==
--- OUTSIDE RECORDS SUMMARY | 2024-04-10 14:06 | XMS_ITS | Encounter Summary ---
Author Organization [employer] [facility] Address [address] [place] [address] Care Team Providers Care Silk Finisher Name Role Phone Unavailable Primary Care Provider Unavailabl e Encounter Details Date Type Department Care Team (Latest Contact Info) Description 07/20/2021 Abstract [facility] CONVERSIONS Dental, Provider, DDS Social History Tobacco Use Types Packs/Day Years Used Date Smoking Tobacco: Never Assessed Comments Unknown Sex and Gender Information Value Date Recorded Sex Assigned at Female 12/19/2021 10:25 AM EDT Legal Sex Female 10:25 AM EDT Gender Identity Choose not to disclose 2 10:25 AM EDT Sexual Orientation Choose not to disclose 2021 10:25 AM EDT documented as of this encounter Plan of Treatment Upcoming Encounters Date Type Department Care Team (Late st Contact Info) Description 04/29/2024 11:00 AM EDT Office Visit [facility] [address] [place] [address] Miguel Kennedyaris [address] [place] [address] documented as of this encounter Visit Diagnoses Not on filedocumented in this encounter
--- OUTSIDE RECORDS SUMMARY | 2024-04-10 14:06 | XMS_ITS | Clinical Summary ---
Author Organization [employer] Address [address] [facility] 7t [place] [address] Care Team Providers Care Management Expert Name Role Phone Unavailable Primary Care Provider Unavailabl e Allergies No known active allergies Medications Linzess 145 MCG capsule TAKE 1 CAPSULE ORALLY EVERY MORNING TAKE FIRST THING IN THE MORNING WITH A FULL GLASS OF WATER. 4 Active hydrocortisone (Anusol-HC) 2.5 % rectal cream 1 APPL RECTALLY 2 TIMES A DAY FOR HEMORRHOIDS 4 Active Active Problems Problem Noted Date Diagnosed Date Normal oral exam 11/09/2023 Dental plaque 09/26/2023 Dental calculus 11/01/2022 Localized gingival recession, moderate 3 Social History Tobacco Use Types Packs/Day Years Used Date Smoking Tobacco: Never Passive Smoke Exposure: Never Smokeless Tobacco: Never Tobacco Cessation:Counseling Given: Not Answered Alcohol Use Standard Drinks/Week Comments Yes 0 (1 standard drink = 0.6 oz pur e alcohol) Socially Comments Unknown Sex and Gender Information Value Date Recorded Sex Assigned at Female 12/19/2021 10:25 AM EDT Legal Sex Female 10:25 AM EDT Gender Identity Choose not to disclose 2 10:25 AM EDT Sexual Orientation Choose not to disclose 2021 10:25 AM EDT Last Filed Vital Signs Vital Sign Reading Time Taken Comments Blood Pressure 118/68 11/09/2023 3:27 PM EDT Pulse 72 11/01/2022 9:57 AM EDT Temperature - - Respiratory Rate - - Oxygen Saturation - - Inhaled Oxygen Concentration - - Weight - - Height - - Body Mass Index - - Plan of Treatment Upcoming Encounters Date Type Department Care Team ([facility] st Contact Info) Description 04/29/2024 11:00 AM EDT Office Visit [facility] ADULT DENTAL [address] [place] [address] Claudia Kennedy [address] [place] [address] Health Maintenance Due Date Last Done Comments CT Colonography 1968 Colonoscopy 1968 Colorectal Cancer Screening 1968 Depression Screening 1968 FIT DNA/Cologuard 1968 FIT 1968 FOBT 1968 HIV Screening 1968 SDOH Screening 1968 Sigmoidoscopy 1968 Alcohol/Substance Use Screening 1980 Hepatitis C Screening 1986 DTaP/Tdap/Td Vaccines (1 - Tdap) 05/25/1987 Hepatitis B Vaccines (1 of 3 - 19+ 3-dose series) 05/25/1987 Pap Smear 1989 Cervical Cancer Screening 1998 HPV/Cotest 1998 Mammogram 2008 Pneumococcal Vaccine: 50+ Years (1 of 1 - PCV) 2018 Zoster Vaccines (1 of 2) 2018 COVID-19 Vaccine ( season) 2023 02/13/2021, 06/12/2020, 05/15/2020 Dental Prophylaxis 03/29/2024 09/26/2023, 0 11/01/2022, 07/20/2021, Additional history exists Dental Oral Exam 05/09/2024 11/09/2023, , 07/20/2021, Additional history exists Dental X-Ray: Full Mouth 07/21/2024 07/20/2021, 11/19 Tobacco Screening 11/08/2024 11/09/2023 Dental X-Ray: Bitewings 11/09/2024 11/09/19, 11/01/2022, 07/20/2021, Additional history exists RSV Patients and Patients Aged 60 years or older (1 - 1-dose 75+ series) 05/25/2043 Influenza Vaccine Completed 12/27/2023, , 12/14/2021, Additional history exists HIB Vaccines Aged Out No longer eligi ble based on patient's age to complete this topic HPV Vaccines Aged Out No longer eligi ble based on patient's age to complete this topic Hepatitis A Vaccines Aged Out No long er eligible based on patient's age to complete this topic IPV Vaccines Aged Out No longer eligi ble based on patient's age to complete this topic Meningococcal Vaccine Aged Out No kavitha kasie eligible based on patient's age to complete this topic RSV under 20 months Aged Out No longe r eligible based on patient's age to complete this topic Rotavirus Vaccines Aged Out No longer eligible based on patient's age to complete this topic Procedures Procedure Name Priority Date/Time Associated Diagnosis Comments BITEWINGS - 4 RADIOGRAPHIC IMAGES Routine 11/09/2023 3:30 PM EDT PERIODIC ORAL EVALUATION - ESTABLISHED PATIENT Routine 11/09/2023 3:30 PM EDT PROPHYLAXIS - ADULT Routine 09/26/2023 3 :00 PM EDT Dental plaque INTRAORAL - COMPLETE SERIES OF RADIOGRAPHIC IMAGES Routine 07/20/2021 12:00 AM EDT from Last 3 Months or Most Recently Relevant to Health Maintenance Insurance D[facility]AL-[facility] MEDICAID STAND ADULT
--- OUTSIDE RECORDS SUMMARY | 2024-04-10 14:06 | XMS_ITS | Encounter Summary ---
Author Organization [facility] Address [address] [facility] [address]t [place] [address] Care Team Providers Care Belt Puncher Name Role Phone Unavailable Primary Care Provider Unavailabl e Reason for Visit * Reason Onset Date Comments Appointment 10/09/2022 Encounter Details Date Type Department Care Team (Late st Contact Info) Description 10/09/[address] [facility] ADULT DENTAL [address] [place], [place] [phone] Claudia Kennedy [address] [place] [address] Appointment Social History Tobacco Use Types Packs/Day Years Used Date Smoking Tobacco: Never Assessed Comments Unknown Sex and Gender Information Value Date Recorded Sex Assigned at Female 12/19/2021 10:25 AM EDT Legal Sex Female 10:25 AM EDT Gender Identity Choose not to disclose 10:25 AM EDT Sexual Orientation Choose not to disclose 2021 10:25 AM EDT documented as of this encounter Miscellaneous Notes * Telephone Encounter - Ainsley Ruiz - 10/09/2022 1:42 PM EDT Patient checking in on status of prophy exam and xrays. On waiting list since 04/2022 and checking in on the wait. Shed like to be scheduled. DR documented in this encounter Plan of Treatment Upcoming Encounters Date Type Department Care Team (Late st Contact Info) Description 04/29/2024 11:00 AM EDT Office Visit [facility] ADULT D[facility] [address] [place], [place] [phone] Claudia Kennedy [address] [place] [address] documented as of this encounter Visit Diagnoses Not on filedocumented in this encounter
--- OUTSIDE RECORDS SUMMARY | 2024-04-10 14:06 | XMS_ITS | Encounter Summary ---
Author Organization [email or web address] [facility] Address [address] [facility] [address] [place] [address] Care Team Providers Care Scan Coordinator Name Role Phone Unavailable Primary Care Provider Unavailabl e Encounter Details Date Type Department Care Team (Latest Contact Info) Description 12/10/2018 Abstract [facility] CONVERSIONS Dental, Provider, DDS Social History Tobacco [...] Description 04/29/2024 11:00 AM EDT Office Visit [facility] ADULT DENTAL [address] [place] [address] Miguel Kennedyaris [address] [place] [address] documented as of this encounter Visit Diagnoses Not on filedocumented in this encounter
[2024-04-10 14:42] LABS: Rheumatoid Factor 16.2 IU/mL (<15.0)
[2024-04-10 14:49] LABS: C Reactive Protein < 0.10 mg/dL (< or = 0.50)
[2024-04-10 14:57] LABS: Erythrocyte Sedimentation Rate 21 MM/HR (0-20)
[2024-04-11 22:43] LABS: Cyclic Citrullinated Peptide <16 UNITS
[2024-04-16 12:13] LABS: Anti Nuclear Antibody Pattern Nuclear, Speckled; Anti Nuclear Antibody Screen POSITIVE (NEGATIVE)
== END 2024-04-10 13:11 | disposition home or self-care (01) ==
LOC: HO.LAB 13:10
PROVIDERS: PCP Internal Medicine; Visit Provider Nurse Practitioner
DX: M53.3 Sacrococcygeal disorders, not elsewhere classified (principal); R93.89 Abnormal findings on diagnostic imaging of other specified body structures
CPT/HCPCS: 36415; 85652; 86038; 86039; 86140; 86200; 86431

== ENCOUNTER 2024-04-23 08:51 | Outpatient (AMB) | payer OTHER, SELFPAY ==
--- NOTE | 2024-04-23 08:53 | MHC.OFFWIV ---
Intake Vital Signs 04/23/24 08:54 Weight 156 lb BP 120/70 Blood Pressure Location Rt brachial Position Sitting Pulse 92 Pulse Source Pulse Oximeter Temp 98.5 F Temp Source Oral Pulse Oximetry (%) 96 Oxygen Delivery Method Room Air Intake Visit Reasons: EP body aches, coughing, exposed to covid Intake Note: Patient here for body aches, cough, headaches she states she was exposed to a coworker who has covid. Patient Tobacco Use Status: Never used Tobacco Allergies acetaminophen [From Benadryl Tnpiuhf-Iwjoe-Cdpgdnm] Adverse Reaction (Verified 04/23/24 08:56) Agitated diphenhydramine [From Benadryl Yczreuj-Yuwpt-Znrniwv] Adverse Reaction (Verified 04/23/24 08:56) Agitated phenylephrine [From Benadryl Cafugsg-Yyimk-Brmatvf] Adverse Reaction (Verified 04/23/24 08:56) Agitated pseudoephedrine [From Benadryl Katyzal-Uubsu-Yhrvpcf] Adverse Reaction (Verified 04/23/24 08:56) Agitated Do you need a note to return to daycare/school/sports/work: Yes HPI HPI Comments History of Present Illness Details History - The patient is a 53-year-old female presenting for evaluation of symptoms consistent with COVID-19 following confirmed exposure. She began experiencing chills on Sunday, progressing to generalized malaise and throat pain significant enough to impact her work duties, necessitating an early leave from work the following day. That same evening, symptoms escalated to severe myalgia and sore throat. She has a history of gout. She denies any respiratory symptoms such as shortness of breath or wheezing and has been taking Tylenol with mild relief. No ear or sinus pain is reported, nor any antecedent history of asthma or COPD. Physical Exam General: Cooperative, healthy appearing, comfortable and no acute distress Orientation/consciousness: Patient oriented x3 Limitations: No limitations Head: Normal to inspection Ears: Hearing grossly normal bilaterally, external ears normal and TM's normal bilaterally Nose: Normal external nose present, Normal nares present and No nasal discharge present Face and sinus: Normal facial exam and Yes sinuses nontender Mouth: Normal oral and palatal mucosa present and moist mucous membranes Throat: Yes tonsils normal, Yes uvula midline. Posterior oropharynx erythema Eyes: Appearance normal, both eyes and all related structures Neck: Normal visual inspection Respiratory: Clear to auscultation bilaterally. Normal respiratory effort, able to speak in complete sentences, no respiratory distress, not tachypneic, no tripod positioning and no use of accessory muscles Cardiovascular: Regular rate and rhythm. Normal S1 and S2 Skin: No rashes or lesions noted Neuro: Patient oriented x3 Extremities: Normal to inspection and Yes no clubbing, cyanosis or edema Czech video intensive care ambulance paramedic used for this visit FORMERLY [facility], [facility] Medical History Physical exam Anal pain Family history of hepatitis B Pre-op examination Well woman exam Diarrhea GERD (gastroesophageal reflux disease) Right sided sciatica Uterine leiomyoma Constipation 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 Surgical History Hx of colonoscopy History of delivery Family History Father COPD (chronic obstructive pulmonary disease) Mother NIDDY (non-insulin dependent diabetes mellitus in young) Paternal Grandmother Alzheimer's dementia Maternal Grandmother NIDDY (non-insulin dependent diabetes mellitus in young) Social History Housing: Apartment Alcohol intake: current Alcohol intake frequency: holidays/special occasions only Alcohol type: beer Patient Tobacco Use Status: Never used Tobacco e-Cigarette/Vaping Use: Never Used Second Hand Smoke Exposure: No Advance Directives Date on File: 11/25/19 service: No Current occupational status: employed Current occupational exposures/hazards: No Cognitive needs: No Hearing needs: No Vision needs: No Female Reproductive History Menstrual Age of Menarche: 10 Review of Systems Const All systems reviewed & are unremarkable except as noted in HPI and below Physical Exam Vital Signs: Last Vital Signs Temp 98.5 F 04/23/24 08:54 Pulse 101 H 04/23/24 08:54 BP 120/70 04/23/24 08:54 Pulse Ox 95 04/23/24 08:54 Oxygen Delivery Method Room Air 04/23/24 08:54 Assessment & Plan Assessment & Plan (1) Acute viral syndrome: Code(s): B34.9 - Viral infection, unspecified Plan: VSS, pt well appearing and PE unremarkable. In light of the patient's exposure and presenting symptoms, nasal swab testing for influenza, COVID-19, and RSV has been ordered. If COVID-19 is confirmed, Paxlovid treatment may be considered, and Tamiflu if influenza is diagnosed, while keeping in mind potential medication side effects. A prescription for a cough suppressant will be provided to manage nocturnal symptoms. The patient is advised to use zjij-qsp-xeygivc remedies for symptomatic relief. A work note covers absence for adequate recovery time, ensuring symptom resolution. Further communication will occur with the patient once test results are available. Patient was informed and verbally consented to the use of an ambient scribe for clinic note documentation during this visit Plan Czech video intensive care ambulance paramedic used for this visit Orders: Orders SARS-CoV2/FLU/RSV Today R09.89 - Other specified symptoms and signs involving the circulatory and respiratory systems Medications: New benzonatate 200 mg PO BEDTIME PRN 10 caps 0RF cough Coding Level of Care Code Est Pt Level 3 (65212) Diagnoses Acute viral syndrome B34.9
[2024-04-23 08:54] VITALS: BP 120/70; PULSE 92; TEMP 36.9; O2SAT 96
== END 2024-04-23 09:16 | disposition home or self-care (01) ==
LOC: HO.HMCWIC 08:52
PROVIDERS: PCP Internal Medicine; Visit Provider Physician Assistant
DX: B34.9 Viral infection, unspecified (principal)

== ENCOUNTER 2024-04-23 08:51 | Outpatient (REF) | payer OTHER, SELFPAY ==
--- OUTSIDE RECORDS SUMMARY | 2024-04-23 09:56 | XMS_ITS | Clinical Summary ---
Author Organization [employer] Address [address] [facility] 7t [place] [address] Care Team Providers Care Clinical Services Consultant Name Role Phone Unavailable Primary Care Provider [...] Upcoming Encounters Date Type Department Care Team ([facility] st Contact Info) Description 04/29/2024 11:00 AM EDT Office Visit [facility] ADULT DENTAL [address] [place] [address] Claudia Kennedy [address] [place] [address] Health Maintenance Due Date Last Done Comments [...] Most Recently Relevant to Health Maintenance Insurance [facility] MEDICAID STAND ADULT
--- OUTSIDE RECORDS SUMMARY | 2024-04-23 09:56 | XMS_ITS | Encounter Summary ---
Author Organization [employer] [facility] Address [address] [facility] [address]t [place] [address] Care Team Providers Care Crossing Guard Name Role Phone Unavailable Primary Care Provider Unavailabl e Encounter Details Date Type Department Care Team (Latest Contact Info) Description 12/10/2018 Abstract [facility] CONVERSIONS Dental, Provider, DDS Social History Tobacco [...] Description 04/29/2024 11:00 AM EDT Office Visit [facility] ADULT DENTAL [address] [place] [address] Miguel Kennedyaris [address] [place] [address] documented as of this encounter Visit Diagnoses Not on filedocumented in this encounter
--- OUTSIDE RECORDS SUMMARY | 2024-04-23 09:56 | XMS_ITS | Encounter Summary ---
Author Organization [employer] [facility] Address [address] [facility] 7t [place] [address] Care Team Providers Care Assistant Education Director Name Role Phone Unavailable Primary Care Provider Unavailabl e Reason for Visit * Reason Onset Date Comments Appointment 10/09/2022 Encounter Details Date Type Department Care Team (Late st Contact Info) Description 10/09/2022 Telephone [facility] ADULT DENTAL [address] [place], [place] [phone] Claudia Kennedy [address] [place] [address] Appointment Social History Tobacco Use Types Packs/Day [...] Description 04/29/2024 11:00 AM EDT Office Visit [facility] ADULT DENTAL [address] [place], [place] [phone] Claudia Kennedy [address] [place] [address] documented as of this encounter Visit Diagnoses Not on filedocumented in this encounter
--- OUTSIDE RECORDS SUMMARY | 2024-04-23 09:56 | XMS_ITS | Encounter Summary ---
Author Organization [employer] [facility] Address [address] [facility] 7t [place] [address] Care Team Providers Care Reduction Plant Supervisor Name Role Phone Unavailable Primary Care Provider Unavailabl e Encounter Details Date Type Department Care Team (Latest Contact Info) Description 07/20/2021 Abstract [facility] CONVERSIONS Dental, Provider, DDS Social History [...] Description 04/29/2024 11:00 AM EDT Office Visit [facility] ADULT DENTAL [address] [place] [address] Miguel Kennedyaris [address] [place] [address] documented as of this encounter Visit Diagnoses Not on filedocumented in this encounter
[2024-04-23 11:29] LABS: Influenza A PCR POSITIVE (Negative); Influenza B PCR NEGATIVE (Negative); Resp Syncy Virus RNA Qual PCR NEGATIVE (Negative); SARS COV2 PCR INHOUSE NEGATIVE (Negative)
== END 2024-04-23 08:52 | disposition home or self-care (01) ==
LOC: HO.LAB 08:51
PROVIDERS: PCP Internal Medicine; Visit Provider Physician Assistant
DX: B34.9 Viral infection, unspecified (principal); R09.89 Other specified symptoms and signs involving the circulatory and respiratory systems; R05.8 Other specified cough
CPT/HCPCS: 0241U; 99212

== ENCOUNTER 2024-09-18 08:12 | Outpatient (REF) | payer OTHER, SELFPAY ==
--- NOTE | ~2024-09-18 | FL_ITS ---
EXAMINATION: XR FLUOROSCOPY UPPER GI WITH AIR CLINICAL INFORMATION: Epigastric pain. COMPARISON: None available. TECHNIQUE: Routine upper GI air contrast study was performed in upright and lying position. FINDINGS: Following oral administration of thick barium and effervescent granules there is normal propagation bolus from the oral cavity through the pharynx, esophagus into stomach without any obstruction, narrowing or intraluminal filling defect. No extrinsic compression seen. The course, caliber and peristalsis of the stomach, duodenal bulb and the sweep is normal. The mucosal pattern of stomach and the duodenum is normal. Mild gastroesophageal reflux without hiatal hernia seen. FLUOROSCOPY TIME: 2 minutes and 0.05 seconds DOSE AREA PRODUCT: 2009 uGy-m2 (microgray-meter squared) FL/FL upper GI w air IMPRESSION: Mild gastroesophageal reflux without hiatal hernia. Electronically signed by: Ehsan Corona MD 09/18/2024 01:52 PM EDT
--- OUTSIDE RECORDS SUMMARY | 2024-09-18 08:18 | XMS_ITS | Clinical Summary ---
Author Organization [employer] Address [address] [facility] [address]t [place] [address] Care Team Providers Care Teacher Counselor Name Role Phone Unavailable Primary Care Provider [...] Sign Reading Time Taken Comments Blood Pressure 114/72 05/13/2024 2:00 PM EDT Pulse 72 11/01/2022 9:57 AM EDT Temperature - - Respiratory Rate - - Oxygen Saturation - - Inhaled Oxygen Concentration - - Weight - - Height - - Body Mass Index - - Plan of Treatment Upcoming Encounters Date Type Department Care Team ([facility] st Contact Info) Description 11/14/2024 3:00 PM EDT Office Visit [facility] ADULT DENTAL [address] [place] [address] Claudia Kennedy [address] [place] [address] Health Maintenance Due Date Last Done Comments CT Colonography 1968 Colonoscopy 1968 Colorectal Cancer Screening 1968 Depression Screening 1968 FIT DNA/Cologuard 1968 FIT 1968 FOBT 1968 HIV Screening 1968 SDOH Screening 1968 Sigmoidoscopy 1968 Disability Screening 1968 Alcohol/Substance Use Screening 1980 Hepatitis C Screening 1986 DTaP/Tdap/Td Vaccines (1 - Tdap) 05/25/1987 Hepatitis B Vaccines (1 of 3 - 19+ 3-dose series) 05/25/1987 Pap Smear 1989 Cervical Cancer Screening 1998 HPV/Cotest 1998 Mammogram 2008 Pneumococcal Vaccine: 50+ Years (1 of 1 - PCV) 2018 Zoster Vaccines (1 of 2) 2018 COVID-19 Vaccine ( - 2023- season) 2023 02/13/2021, 06/12/2020, 05/15/2020 Dental Oral Exam 05/09/2024 11/09/2023, , 07/20/2021, Additional history exists Dental X-Ray: Full Mouth 07/21/2024 07/20/2021, 11/19 Influenza Vaccine (#1) 2024 4, 12/25/2022, 12/14/2021, Additional history exists Dental X-Ray: Bitewings 11/09/2024 11/09/19 24, 11/01/2022, 07/20/2021, Additional history exists Dental Prophylaxis 11/14/2024 05/13/2024, 0 09/26/2023, 11/01/2022, Additional history exists Tobacco Screening 05/13/2025 05/13/2024 RSV Patients and Patients Aged 60 years or older (1 - 1-dose 75+ series) 05/25/2043 HIB Vaccines Aged Out No longer eligi [...] patient's age to complete this topic Meningococcal B Vaccine Aged Out No l onger eligible based on patient's age to complete [...] Procedure Name Priority Date/Time Associated Diagnosis Comments Full PROPHYLAXIS - ADULT Routine 025 2:00 PM EDT Dental plaque BITEWINGS - 4 RADIOGRAPHIC IMAGES Routine 11/09/2023 3:30 PM EDT PERIODIC ORAL EVALUATION - ESTABLISHED PATIENT Routine 11/09/2023 3:30 PM EDT INTRAORAL - COMPLETE SERIES OF RADIOGRAPHIC IMAGES Routine 07/20/2021 12:00 AM EDT from Last 3 Months or Most Recently Relevant to Health Maintenance Insurance [place] [address]
== END 2024-09-18 08:13 | disposition home or self-care (01) ==
LOC: HO.XRAY 08:12
PROVIDERS: PCP Internal Medicine; Visit Provider Internal Medicine
DX: R10.13 Epigastric pain (principal)
CPT/HCPCS: 74240; 74246

== ENCOUNTER → 2024-09-18 08:14 | Outpatient (BNV) | payer OTHER, SELFPAY | PROVIDERS: PCP Internal Medicine; Visit Provider Radiology Diagnostic Radiology | DX: R10.13 Epigastric pain (principal) | CPT/HCPCS: 74246 ==

== ENCOUNTER 2024-10-31 12:54 | Outpatient (AMB) | payer OTHER, SELFPAY ==
--- NOTE | 2024-10-31 13:15 | AM.OFFVISNUR ---
Intake Visit Reasons: TDAP Allergies acetaminophen (From Benadryl Vchhcbs-Ssrdn-Byvmyau) Adverse Reaction (Verified 04/23/24 08:56) Agitated diphenhydramine (From Benadryl Qymalaw-Pkdci-Xofbvbb) Adverse Reaction (Verified 04/23/24 08:56) Agitated phenylephrine (From Benadryl Owvblqj-Lvbqu-Nanplkb) Adverse Reaction (Verified 04/23/24 08:56) Agitated pseudoephedrine (From Benadryl Euxnzyi-Unypz-Nvegxxp) Adverse Reaction (Verified 04/23/24 08:56) Agitated Immunizations Boostrix Tdap 2.5 Lf unit-8 mcg-5 Lf/0.5 mL intramuscular syringe Performing Provider: Amber Fountain MD [facility] Administered by: Romy Amanda RN on 10/31/24 13:15 Dose Route Admin Location Dispensed Lot Number Expiration Date [facility] [employer] Guidance Counselor 0.5 mL IM Left Deltoid 0.5 mL [id number] 01/08/27 96052-343-22 [employer] Total Dispensed Waste 0.5 mL 0 % VIS Given Date VIS Provided VIS Publication Date 10/31/24 Single Vaccine 20 Eligibility Eligibility Date Funding Source Not [facility] Eligible 10/31/24 Private Assessment & Plan Assessment & Plan Orders: Orders TDaP Immunization Today Z23 - Encounter for immunization Coding
--- OUTSIDE RECORDS SUMMARY | 2024-10-31 15:19 | XMS_ITS | Encounter Summary ---
Author Organization [employer] [facility] Address [address] [facility] [address] [place] [address] Care Team Providers Care Sludge Control Operator Name Role Phone Unavailable Primary Care Provider Unavailabl e Reason for Visit * Reason Onset Date Comments Appointment 10/09/2022 Encounter Details Date Type Department Care Team (Late st Contact Info) Description 10/09/2022 Telephone [facility] ADULT DENTAL [address] [place] [address] Claudia Kennedy [address] [place] [address] Appointment Social History Tobacco Use Types Packs/Day [...] Care Team (Late st Contact Info) Description 11/14/2024 3:00 PM EDT Office Visit [facility] ADULT DENTAL [address] [place] [address] Claudia Kennedy [address] [place] [address] documented as of this encounter Visit Diagnoses Not on filedocumented in this encounter
--- OUTSIDE RECORDS SUMMARY | 2024-10-31 15:19 | XMS_ITS | Encounter Summary ---
Author Organization [employer] [facility] Address [address] [facility] 7t [place] [address] Care Team Providers Care Cementer Hand Name Role Phone Unavailable Primary Care Provider Unavailabl e Encounter Details Date Type Department Care Team (Latest Contact Info) Description 12/10/2018 Abstract [facility] CONVERSIONS Dental, Provider, DDS Social History [...] Description 11/14/2024 3:00 PM EDT Office Visit [facility] ADULT DENTAL [address] [place] [address] Brent, Claudia [address] [place] [address] documented as of this encounter Visit Diagnoses Not on filedocumented in this encounter
--- OUTSIDE RECORDS SUMMARY | 2024-10-31 15:19 | XMS_ITS | Clinical Summary ---
Author Organization [employer] Address [address] [facility] [address]t [place] [address] Care Team Providers Care Custodian Blood Bank Name Role Phone Unavailable Primary Care Provider [...] Upcoming Encounters Date Type Department Care Team ([facility] st Contact Info) Description 11/14/2024 3:00 PM EDT Office Visit [facility] ADULT DENTAL [address] [place] [address] Claudia Kennedy [address] [place] [address] Health Maintenance Due Date Last Done Comments [...] 2018 Zoster Vaccines (1 of 2) 2018 Dental Oral Exam 05/09/2024 11/09/2023, , 07/20/2021, Additional history exists Dental X-Ray: Full Mouth 07/21/2024 07/20/2021, 11/19 COVID-19 Vaccine ( season) 2024 02/13/2021, 06/12/2020, 05/15/2020 Influenza Vaccine (#1) 2024 4, 12/25/2022, 12/14/2021, [...] Maintenance Insurance [place] [address]
--- OUTSIDE RECORDS SUMMARY | 2024-10-31 15:19 | XMS_ITS | Encounter Summary ---
Author Organization [employer] [facility] Address [address] [facility] 7t [place] [address] Care Team Providers Care Slot Shift Supervisor Name Role Phone Unavailable Primary Care Provider Unavailabl e Encounter Details Date Type Department Care Team (Latest Contact Info) Description 07/20/2021 Abstract [facility] CONVERSIONS Dental, Provider, DDS Social History Tobacco [...] Description 11/14/2024 3:00 PM EDT Office Visit [facility] ADULT DENTAL [address] [place] [address] Brent, Claudia [address] [place] [address] documented as of this encounter Visit Diagnoses Not on filedocumented in this encounter
== END 2024-10-31 13:18 | disposition home or self-care (01) ==
LOC: HO.HMCH 12:55
PROVIDERS: PCP Internal Medicine; Visit Provider Internal Medicine
DX: Z23 Encounter for immunization (principal)

== ENCOUNTER → 2024-10-31 12:54 | Outpatient (BNVA) | payer OTHER, SELFPAY | PROVIDERS: PCP Internal Medicine; Visit Provider Internal Medicine | DX: Z23 Encounter for immunization (principal) | CPT/HCPCS: 90471; 90715 ==

== ENCOUNTER 2024-11-18 15:55 | Outpatient (AMB) | payer OTHER, SELFPAY ==
--- NOTE | 2024-11-18 15:57 | A.OFFVIS_ITS ---
Vital Signs 11/18/24 16:00 Height 5 ft 2 in Weight 156 lb 8.451 oz BMI 28.6 BP 112/64 Blood Pressure Location Lt brachial Position Sitting Pulse 72 Intake Visit Reasons: r/s 10/29 Intake Note: Patient in office today in follow up of constipation. CC: Patient reports doing well and denies having any new GI symptoms or concerns. Per patient she has been watching what she eats and is doing well. 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 Accompanied by: Self / Same As Patient Allergies acetaminophen (From Benadryl Tbvseox-Awlfx-Lysxfhp) Adverse Reaction (Verified 11/18/24 16:04) Agitated diphenhydramine (From Benadryl Znwvjzr-Pjmak-Ljozngy) Adverse Reaction (Verified 11/18/24 16:04) Agitated phenylephrine (From Benadryl Dwjnlgw-Hrsbd-Biybimt) Adverse Reaction (Verified 11/18/24 16:04) Agitated pseudoephedrine (From Benadryl Cbttxsc-Kckhb-Ypfgzua) Adverse Reaction (Verified 11/18/24 16:04) Agitated HPI HPI r/s 10/29: Details: Assessment & Plan (1) Constipation: Code(s): K59.00 - Constipation, unspecified Category: Medical (2) Dystrophic radiologic calcification: Code(s): R93.89 - Abnormal findings on diagnostic imaging of other specified body structures Category: Medical (3) Lumbar spondylosis: Code(s): M47.816 - Spondylosis without myelopathy or radiculopathy, lumbar region Category: Medical (4) Sacral dysfunction: Comment: Multiple dystrophic calcifications of the sacrum on x-ray obtained 09/2023 Code(s): M53.3 - Sacrococcygeal disorders, not elsewhere classified Category: Medical (5) Spina bifida occulta: Code(s): Q76.0 - Spina bifida occulta Category: Medical Plan She forgot about the labs, but she is feeling somewhat better. She did not understand that she did not have to fast for the labs so this was a barrier to getting them done. With this I tell her to please go get the labs so I can decide whether or not 2 point her in the direction of rheumatology for a possible inflammatory arthritis given her tailbone pain and the radiology findings. Her constipation continues to be well controlled by adding fluid and fiber to her diet. Return office visit in 8 weeks RAGHAV Reflex Titer and ArwxwtvFouhaA85.3 - Sacrococcygeal disorders, not elsewhere classified, R93.89 - Abnormal findings on diagnostic imaging of other specified body structures C Reactive ReyiavuHygvqJ10.3 - Sacrococcygeal disorders, not elsewhere classified, R93.89 - Abnormal findings on diagnostic imaging of other specified body structures Erythrocyte Sedimentation HusvIozdpS74.3 - Sacrococcygeal disorders, not elsewhere classified, R93.89 - Abnormal findings on diagnostic imaging of other specified body structures Rheumatoid QecqsvWftwdW17.3 - Sacrococcygeal disorders, not elsewhere classified, R93.89 - Abnormal findings on diagnostic imaging of other specified body structures Cyclic Citrullinated ParunjcKyrxrH48.3 - Sacrococcygeal disorders, not elsewhere classified, R93.89 - Abnormal findings on diagnostic imaging of other specified body structures LABS Laboratory Tests 04/10/24 13:18 ESR 21 H C-Reactive Protein < 0.10 Rheumatoid Factor 16.2 H Cycl Citrul Peptide IgG <16 RAGHAV Screen POSITIVE A RAGHAV Titer 1:160 H RAGHAV Pattern Nuclear, Speckled A TODAYS VISIT [facility] Medical History Physical exam Anal pain Family history of hepatitis B Pre-op examination Well woman exam Diarrhea GERD (gastroesophageal reflux disease) Right sided sciatica Uterine leiomyoma Constipation 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 Surgical History Hx of colonoscopy History of delivery Family History Father COPD (chronic obstructive pulmonary disease) Mother NIDDY (non-insulin dependent diabetes mellitus in young) Paternal Grandmother Alzheimer's dementia Maternal Grandmother NIDDY (non-insulin dependent diabetes mellitus in young) Social History Housing: Apartment Alcohol intake: current Alcohol intake frequency: holidays/special occasions only Alcohol type: beer Patient Tobacco Use Status: Never used Tobacco e-Cigarette/Vaping Use: Never Used Second Hand Smoke Exposure: No Advance Directives Date on File: 11/25/19 service: No Current occupational status: employed Current occupational exposures/hazards: No Cognitive needs: No Hearing needs: No Vision needs: No Female Reproductive History Menstrual Age of Menarche: 10 Review of Systems Const Denies fatigue, Denies fever(s), Denies night sweats, Denies poor appetite and Denies weight loss ENT Reports Normal hearing present, Denies dental pain, Denies dysphagia, Denies hearing loss, Denies mouth pain, Denies odynophagia, Denies throat swelling, Denies tongue swelling and Reports other (Dentition adequate) Card Reports no additional complaints Resp Reports no additional complaints GI Details: Denies abdominal pain, Denies melena, Denies bloating, Denies hematochezia, Reports constipation, Denies GI cramping, Denies dysphagia, Denies excessive flatus, Denies early satiety, Denies heartburn, Denies diarrhea, Denies nausea, Denies odynophagia, Denies vomiting and Denies hematemesis Musc Reports myalgias and Reports arthralgias Skin/Breast Denies pruritus, Denies lesions, Denies rash and Denies jaundice Neuro Reports Normal hearing present and Denies Abnormal speech present Endo Denies fatigue Aller/Immun Denies throat swelling and Denies tongue swelling Physical Exam Vital Signs: Last Vital Signs Pulse 72 11/18/24 16:00 BP 112/64 11/18/24 16:00 BMI result Body Mass Index 28.6 Const General: cooperative, no acute distress, well developed and well groomed Nutritional Appearance: average body habitus and well nourished Orientation/consciousness: oriented to person, oriented to place and oriented to time Limitations: No language barrier HEENT Head: Yes normocephalic and Yes atraumatic Eyes General: appearance normal, both eyes and all related structures Pupils: Equal, round and reactive pupils present Neck Neck: Yes normal visual inspection and Yes no lymphadenopathy Thyroid: Thyroid normal Resp Effort & Inspection: normal respiratory effort and able to speak in complete sen tences Auscultation: clear to auscultation bilaterally Cardio Rate: regular rate Rhythm: regular rhythm Heart sounds: Normal, physiologic split S2 sound present Peripheral pulses: radial pulses present and posterior tibial pulses present GI Inspection: No distended and No Abdominal panniculus present Palpation (GI): Soft to palpation, nontender, no guarding, not rigid and No hepa tosplenomegaly present Percussion: Yes normal to percussion Auscultation: normal bowel sounds Rectal Exam - Female: deferred Skin General skin exam: no rashes or lesions noted, turgor normal, skin not dry, no jaundice, No spider nevi and no striae Rashes: no rashes Nails: normal Neuro General: oriented to person, oriented to place and oriented to time Cranial nerves: Yes Equal, round and reactive pupils present and Yes Normal hearing present Speech: No Abnormal speech present Extrem General: Yes normal to inspection, No clubbing, No cyanosis and No edema Psych Appearance: grossly normal and well kempt Mental Status: mental status grossly normal Speech and movement: Normal speech and movement present Affect: normal affect Attitude: cooperative Thought process: Normal thought process present and not confabulating Thought content: Normal thought content present Insight: Good insight present (Psych) Judgement: Good judgement present (Psych) Assessment & Plan Assessment & Plan (1) Elevated rheumatoid factor: Code(s): R76.8 - Other specified abnormal immunological findings in serum Category: Medical (2) Spina bifida occulta: Comment: X-ray 12/2023 Code(s): Q76.0 - Spina bifida occulta Category: Medical (3) Dystrophic radiologic calcification: Code(s): R93.89 - Abnormal findings on diagnostic imaging of other specified body structures Category: Medical (4) Chronic fatigue disorder: Code(s): R53.82 - Chronic fatigue, unspecified Category: Medical Plan We go over her blood work and it does show evidence of elevated sed rate and rheumatoid factor along with a mildly elevated RAGHAV. Fortunately, she does have an upcoming rheumatology appointment in December. At this time we are not following her for any active GI issues so she can always return to our service as needed. Coding Level of Care Code Est Pt Level 3 (61041) Diagnoses Elevated rheumatoid factor R76.8 Spina bifida occulta Q76.0 Dystrophic radiologic calcification R93.89 Chronic fatigue disorder R53.82
[2024-11-18 16:00] VITALS: BP 112/64; PULSE 72; BMI 28.6
--- OUTSIDE RECORDS SUMMARY | 2024-11-18 17:01 | XMS_ITS | Encounter Summary ---
Author Organization [employer] [facility] Address [address] [place] [address] Care Team Providers Care Pension Adviser Name Role Phone Unavailable Primary Care Provider Unavailabl e Reason for Visit * Reason Onset Date Comments Appointment 10/09/2022 Encounter Details Date Type Department Care Team (Late st Contact Info) Description 10/09/2022 Telephone [facility] [address] [place] [address] Claudia Kennedy [address] [place] [address] Appointment Social History Tobacco Use Types Packs/Day [...] Care Team (Late st Contact Info) Description 12/11/2024 2:15 PM EDT Office Visit [facility] [address] [place] [address] Claudia Kennedy [address] [place] [address] documented as of this encounter Visit Diagnoses Not on filedocumented in this encounter
--- OUTSIDE RECORDS SUMMARY | 2024-11-18 17:01 | XMS_ITS | Encounter Summary ---
Author Organization [employer] [facility] Address [address] [place] [address] Care Team Providers Care Senior Controller Name Role Phone Unavailable Primary Care Provider Unavailabl e Encounter Details Date Type Department Care Team (Latest Contact Info) Description 12/10/2018 Abstract [facility] Dental, Provider, DDS Social History [...] Description 12/11/2024 2:15 PM EDT Office Visit [facility] [address] [place] [address] Brent, Claudia [address] [place] [address] documented as of this encounter Visit Diagnoses Not on filedocumented in this encounter
--- OUTSIDE RECORDS SUMMARY | 2024-11-18 17:01 | XMS_ITS | Clinical Summary ---
Author Organization [employer] Address [address] [place] [address] Care Team Providers Care Professor Of Theater Name Role Phone Unavailable Primary Care Provider [...] Upcoming Encounters Date Type Department Care Team ([facility] st Contact Info) Description 12/11/2024 2:15 PM EDT Office Visit [facility] [address] [place] [address] Claudia Kennedy [address] [place] [address] Health Maintenance Due Date Last Done Comments [...] Most Recently Relevant to Health Maintenance Insurance DENTAL - HSN PARTIAL (MEDICAID)
--- OUTSIDE RECORDS SUMMARY | 2024-11-18 17:01 | XMS_ITS | Encounter Summary ---
Author Organization [employer] [facility] Address [address] [place] [address] Care Team Providers Care Certified Low Vision Therapist Name Role Phone Unavailable Primary Care Provider Unavailabl e Encounter Details Date Type Department Care Team (Latest Contact Info) Description 07/20/2021 Abstract [facility] Dental, Provider, DDS Social History Tobacco [...] Description 12/11/2024 2:15 PM EDT Office Visit [facility] [address] [place] [address] Brent, Claudia [address] [place] [address] documented as of this encounter Visit Diagnoses Not on filedocumented in this encounter
== END 2024-11-18 16:28 | disposition home or self-care (01) ==
LOC: HO.HGI 15:56
PROVIDERS: PCP Internal Medicine; Visit Provider Nurse Practitioner
DX: R76.8 Other specified abnormal immunological findings in serum (principal); Q76.0 Spina bifida occulta; R93.89 Abnormal findings on diagnostic imaging of other specified body structures; R53.82 Chronic fatigue, unspecified
CPT/HCPCS: 99213

== ENCOUNTER → 2024-11-18 15:55 | Outpatient (BNVA) | payer OTHER, SELFPAY | PROVIDERS: PCP Internal Medicine; Visit Provider Nurse Practitioner | DX: Q76.0 Spina bifida occulta (principal); R93.89 Abnormal findings on diagnostic imaging of other specified body structures; R53.82 Chronic fatigue, unspecified; R76.8 Other specified abnormal immunological findings in serum; K59.00 Constipation, unspecified | CPT/HCPCS: 99212 ==